=== PATIENT | female | born 1985 | race Caucasian/White ===

== ENCOUNTER → 2019-05-15 10:10 | Outpatient (BNVA) | payer BC, SELFPAY | PROVIDERS: Visit Provider Obstetrics & Gynecology | DX: Z09 Encounter for follow-up examination after completed treatment for conditions other than malignant neoplasm (principal); N93.9 Abnormal uterine and vaginal bleeding, unspecified | CPT/HCPCS: 36415; 83001; 84146; 84443 ==

== ENCOUNTER → 2019-12-28 09:46 | Outpatient (BNVA) | payer BC, SELFPAY | PROVIDERS: Visit Provider Obstetrics & Gynecology | DX: N93.9 Abnormal uterine and vaginal bleeding, unspecified (principal) | CPT/HCPCS: 83036 ==

== ENCOUNTER 2020-01-18 20:39 | Emergency (ER) | payer BC, SELFPAY ==
[2020-01-18 21:42] VITALS: BP 152/91; PULSE 79; RESP 14; TEMP 36.5; O2SAT 98; BMI 35.9
[2020-01-18 21:55] LABS: Glucose Point of Care 146 mg/dL (70-110)
[2020-01-19 00:42] VITALS: BP 167/91; PULSE 94; RESP 18; O2SAT 98
[2020-01-19 01:00] VITALS: BP 126/63; PULSE 88; RESP 16; O2SAT 98
--- NOTE | 2020-01-19 01:02 | W.ED.SKABFB ---
HPI - Skin/Abscess/Foreign Bdy General: Chief complaint: Skin/Abscess/Foreign Body Stated complaint: rash Time Seen by Provider: 01/19/20 00:46 Source: patient Mode of arrival: ambulatory Limitations: no limitations History of Present Illness: HPI narrative: Patient comes in for generalized itchy rash. Patient has been treated with steroid 1 week ago and then was treated with permethrin 3 to 4 days ago. Patient reports that she continues to have itchiness after these treatments and cannot find any improvement from symptoms. Patient appears well. Patient appears no acute distress. Review of Systems General: Reports: 10 or more systems reviewed and unremarkable except in HPI and below Skin/Breast: Reports: other (Itchy rash) PFS ED PFSH: Family History Grandfather Hyperlipidemia maternal Hypertension maternal Stroke maternal Grandmother Heart disease maternal Hyperlipidemia maternal Hypertension maternal Thyroid condition maternal Father Thyroid condition Social History (Updated 12/28/19 @ 09:13 by Joanna Bal RN) Smoking and tobacco status: never smoked Alcohol intake: former Year of sobriety/quit date alcohol: 2020 Physical Exam Const: COMMON NORMALS: no acute distress and patient oriented x3 GENERAL APPEARANCE: cooperative HENMT: COMMON NORMALS: normocephalic, TM's normal bilaterally and Normal external nose present HEAD & SCALP: normal to inspection and normocephalic NOSE: Normal external nose present TYMPANIC MEMBRANE: TM's normal bilaterally MOUTH: Normal oral and palatal mucosa present THROAT: posterior oropharynx normal Eye: GENERAL EYE: appearance normal, both eyes and all related structures Neck/C-Spine: COMMON NORMALS: full ROM Lymph: LYMPHATIC: no lymphadenopathy noted Chest: COMMONS NORMALS: normal inspection of the chest Resp: COMMON NORMALS: normal respiratory effort EFFORT & INSPECTION: Yes able to speak in complete sentences Cardio: COMMON NORMALS: regular rate and regular rhythm RATE: regular rate RHYTHM: regular rhythm GI: COMMON NORMALS: non-tender : COMMON NORMALS: Yes no CVA tenderness BLADDER/KIDNEY EXAM: Yes no CVA tenderness Back/Pelvis: COMMON NORMALS: no CVA tenderness and thoracic and lumbar spine normal to inspection Extremity: COMMON NORMALS: normal to inspection Neuro: COMMON NORMALS: patient oriented x3 and moves all extremities Psych: COMMON NORMALS: mental status grossly normal and cooperative Skin: NARRATIVE SKIN EXAM: No significant rash, areas of abrasions were patient has been scratching. Course Vital Signs: Vital signs: Vital Signs Temperature 98.1 F 01/19/20 01:19 Pulse Rate 88 01/19/20 01:19 Respiratory Rate 16 01/19/20 01:19 Blood Pressure 124/81 01/19/20 01:19 Pulse Oximetry 99 01/19/20 01:19 MDM - Skin/Abscess/Foreign Bdy MDM Narrative: Medical decision making narrative: Patient comes in for itching and rash. On exam we no areas of abrasions where patient has been scratching. Patient appears well. Patient appears in no acute distress. Abdomen soft nontender. Differential diagnosis includes but not limited to scabies, neurodermatitis, eczema. Suspect patient probably has eczema and is scratching. I will cover with Stromectol for scabies although that is most likely more due to the eczema. Patient was given triamcinolone and hydroxyzine to help with itching. Patient reported understanding of care plan and need for follow-up. Lab Data: Labs: Lab Results 01/18/20 Range/Units 21:50 POC Glucose 146 (70-110) mg/dL Discharge Plan Discharge Patient Disposition: Home Clinical Impression: Generalized pruritus, Eczema Condition: Stable Prescriptions: New Stromectol 3 mg tablet 15,000 mcg PO DAILY Qty: 10 RF: 0 hydroxyzine HCl 25 mg tablet 25 mg PO Q6H PRN (Reason: itching) Qty: 14 RF: 0 triamcinolone acetonide 0.1 % cream 1 applic TOPICAL BID Qty: 80 RF: 0 No Action norgestimate-ethinyl estradiol [Sprintec (28)] 0.25-35 mg-mcg tablet 1 tab PO DAILY Qty: 84 RF: 3 ibuprofen 600 mg tablet 600 mg PO TID RF: 0 metformin 500 mg tablet 500 mg PO BID RF: 0 mecobalamin (vitamin B12) PO DAILY RF: 0 diphenhydramine HCl 25 mg capsule 25 mg PO Q6H PRNRF: 0 Discharge Orders: Discharge Order (Routine); Ordered 01/19/20 Ordered By: Maximus Hurtado Referrals: Vinicius Avila NP [Primary Care Provider] - Discharge Diet: Usual diet Discharge Activity: Increase activity as tolerated Patient Instructions: Itchy Skin (ED) Activity Restrictions/Additional Instructions: Use medications as directed. Drink plenty of fluids. Follow-up with primary care for further treatment. Return to the emergency department for new concerns. 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
[2020-01-19] MEDS: hyDROXYzine 25 mg Capsule 50 MG PO (01:09)
[2020-01-19 01:19] VITALS: BP 124/81; PULSE 88; RESP 16; TEMP 36.7; O2SAT 99
== END 2020-01-19 01:19 | disposition home or self-care (01) ==
PROVIDERS: Emergency Provider Nurse Practitioner Family; PCP Nurse Practitioner Family
DX: L29.8 Other pruritus (principal); L30.9 Dermatitis, unspecified
CPT/HCPCS: 12345; 36416; 82962; 99281; 99283

== ENCOUNTER 2020-03-21 19:21 | Emergency (ER) | payer BC, SELFPAY ==
[2020-03-21 19:50] VITALS: BP 154/94; PULSE 80; RESP 18; TEMP 36.8; O2SAT 99; BMI 34.7
[2020-03-21] MEDS: metoclopramide 5 mg/mL SDV 2 mL 10 MG IVP (21:16)
[2020-03-21] MEDS: diphenhydrAMINE 50 mg/mL SDV 1mL IVP (21:16)
[2020-03-21] MEDS: ketorolac 30 mg/mL INJ IVP (21:16)
--- NOTE | 2020-03-21 21:29 | ED_ITS ---
HPI - Headache General: Chief Complaint: Headache Stated Complaint: H/A, NECK PAIN X 2 DAYS Time Seen by Provider: 03/21/20 21:02 Source: patient Mode of arrival: ambulatory Limitations: no limitations History of Present Illness: HPI Narrative: 84-year-old female who has a history of migraines. States she started having a headache last night that began gradually. States it is worsened today and she does have photophobia along with phonophobia. States she has some slight neck pain to mainly on the left side especially with palpation. She denies any injuries. She denies any fever. She denies this being the worst headache of her life. States her headache currently is a 5 out of 10. MD elicited complaint: headache and migraine Associated symptoms: Deny chest pain, fever(s), nausea, rash or vomiting Review of Systems Const: Denies: fever(s), chills, body aches or change in appetite Eyes: Denies: blurry vision or eye discomfort ENMT: Denies: throat pain or dental pain Card: Denies: chest pain Resp: Denies: dyspnea GI: Denies: abdominal pain, nausea, vomiting or diarrhea : Denies: dysuria Musc: Denies: neck pain or back pain Skin/Breast: Denies: rash Neuro: Reports: headache(s) Psych: Denies: depression [place]/Lymph: Denies: easy bruising All/Imm: Denies: urticaria PFSH ED PFSH: Family History Grandfather Hyperlipidemia maternal Hypertension maternal Stroke maternal Grandmother Heart disease maternal Hyperlipidemia maternal Hypertension maternal Thyroid condition maternal Father Thyroid condition Social History (Updated 12/28/19 @ 09:13 by Joanna Bal RN) Smoking and tobacco status: never smoked Alcohol intake: former Year of sobriety/quit date alcohol: 2019 Physical Exam Const: COMMON NORMALS: no acute distress, patient oriented x3 and healthy appearing HENMT: COMMON NORMALS: normocephalic and atraumatic HEAD & SCALP: normocephalic and atraumatic Eye: COMMON NORMALS: Equal, round and reactive pupils present and EOMs intact bilaterally PUPIL: Yes Equal, round and reactive pupils present Neck/C-Spine: COMMON NORMALS: full ROM, supple and no meningeal signs Chest: COMMONS NORMALS: normal inspection of the chest and normal palpation of entire chest wall Resp: COMMON NORMALS: normal respiratory effort, No retractions, No use of accessory muscles and clear to auscultation bilaterally AUSCULTATION: clear to auscultation bilaterally Cardio: COMMON NORMALS: regular rate, regular rhythm and No murmurs present (Cardio) RATE: regular rate RHYTHM: regular rhythm GI: COMMON NORMALS: Normal to inspection, nondistended, normoactive bowel sounds present, Soft to palpation, non-tender and no masses PALPATION: Yes Soft to palpation Extremity: COMMON NORMALS: normal to inspection and full ROM Neuro: COMMON NORMALS: patient oriented x3, moves all extremities and no focal motor deficits MENINGEAL SIGNS: Yes no meningeal signs Psych: COMMON NORMALS: mental status grossly normal, Normal thought process present and cooperative THOUGHT PROCESS: Normal thought process present Skin: COMMON NORMALS: no rashes or lesions noted and no wounds GENERAL SKIN EXAM: no rashes or lesions noted Course Vital Signs: Vital signs: Vital Signs Temperature 98.3 F 03/21/20 19:50 Pulse Rate 80 03/21/20 19:50 Respiratory Rate 18 03/21/20 19:50 Blood Pressure 154/94 03/21/20 19:50 Pulse Oximetry 99 03/21/20 19:50 MDM - Headache MDM Narrative: Medical decision making narrative: Raquel presents here with a headache that is likely a migraine headache. Patient is well-appearing here states her headache is resolved. She has no signs of meningitis or subarachnoid hemorrhage. She is to follow-up with PCP in 2 to 4 days. Informed her if her headache returns she is to return immediately. She understands and agrees to this plan. Discharge Plan Discharge Patient Disposition: Home Clinical Impression: Headache Qualifiers: Headache type: unspecified Headache chronicity pattern: acute headache Intractability: not intractable Qualified Code(s): R51.9 - Headache, unspecified Condition: Stable Prescriptions: No Action norgestimate-ethinyl estradiol [Sprintec (28)] 0.25-35 mg-mcg tablet 1 tab PO DAILY Qty: 84 RF: 3 ibuprofen 600 mg tablet 600 mg PO TID PRN (Reason: Abnormal uterine bleeding) RF: 0 metformin 500 mg tablet 500 mg PO BID RF: 0 ferrous sulfate 325 mg (65 mg iron) Tablet 325 mg PO DAILY RF: 0 Discharge Orders: Discharge Order (Routine); Ordered 11/13/20 Ordered By: Miguel Hernandez Referrals: Vinicius Avila NP [Primary Care Provider] - Discharge Diet: Advance as tolerated Discharge Activity: Resume usual activity Patient Instructions: Migraine Headache (ED), Acute Headache (ED) Coding Level of Care Code 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
[2020-03-21 21:54] VITALS: BP 134/66; PULSE 84; RESP 16; O2SAT 99
== END 2020-03-21 21:55 | disposition home or self-care (01) ==
PROVIDERS: Emergency Provider Emergency Medicine; PCP Nurse Practitioner Family
DX: R51.9 Headache, unspecified (principal)
CPT/HCPCS: 12345; 96374; 96375; 99282; 99283; J1200; J1885; J2765

== ENCOUNTER 2020-04-15 09:29 | Outpatient (CLI) | payer BC, SELFPAY ==
[2020-04-15 10:41] LABS: Basophils # 0.1 10^3/uL (0.0-0.1); Basophils % 0.7 %; Eosinophils # 0.2 10^3/uL (0.0-0.8); Eosinophils % 3.1 %; Hematocrit 34.1 % (37.0-47.0); Hemoglobin 9.9 g/dL (11.5-15.3); Lymphocytes # 2.1 10^3/uL (0.8-4.8); Lymphocytes % 28.9 %; Mean Corpuscular Hemoglobin 20.6 pg (28.0-34.0); Mean Corpuscular Volume 70.9 fL (81-99); Mean Platelet Volume 11.1 fL (7.4-10.4); Monocytes # 0.4 10^3/uL (0.2-0.9); Monocytes % 5.3 %; Neutrophils # 4.56 10^3/uL (1.8-7.7); Neutrophils % 61.6 %; Nucleated Red Blood Cells % 0 %; Platelet Count 452 10^3/cmm (130-400); Red Blood Count 4.81 10^6/uL (4.1-5.3); Red Cell Distribution Width 16.8 % (12.1-15.1); White Blood Count 7.4 10^3/uL (4.0-10.0)
--- NOTE | 2020-04-15 17:20 | ONC CON_ITS ---
Dr. Bustos New Patient Note Patient: Raquel Leach Unit #: [id number]: 1985 Dicatated By: Keisha Bustos M.D.Date of Visit: Apr 15, 2020 Onc MED New Patient/Consult Referring Physician: Vinicius Avila N.P. History of Present Illness: Ms. Raquel Leach, is a 34-year-old female with ' lifelong' history of ,off and on anemia and heavy menstrual periods, now being evaluated and managed by Dr. Mosley, [facility] as per patient last year she did try Depo shot without much help then , eventually in April 2019 she was started on control pill and ibuprofen for pelvic pain and she also underwent endometrial biopsy last year , As per patient it showed no evidence of endometriosis but endometrial ablation was recommended early this year but due to COVID-19 pandemic it was never scheduled. As per patient she has been having heavy menstrual periods since the beginning and many times it last as long as 11 days a month. Denies any history of melena or hematochezia but chronic diarrhea for many years and also history of indigestion. Denies any history of blood transfusion. But she has taken oral iron on multiple occasion and now she is on since first week of March 2020 as her labs done on February 05, 2020 showed white blood count 8.3 hemoglobin 10.5 hematocrit 37 MCV 71 platelets 472,000 CMP within normal limit except glucose 153 and follow-up labs done on March 27, 2020 showed white blood count 7.6 hemoglobin 10.2 hematocrit 35.1 MCV 70 platelets 422 iron saturation 3%, iron 16, TIBC 507, ferritin 4. No family history of colon cancer but grandmother with multiple colon polyps and now undergoing repeated colonoscopy and colon polyp removal. Patient denies any palpitation or shortness of breath at rest but mild dyspnea on exertion, denies any jaundice denies any hemoptysis or hematemesis, denies any headaches blurred vision or double vision but sometimes leg cramps.No night sweats, no peripheral lymphadenopathy, no recurrent fever but intentional weight loss since diagnosed with diabetes Past Medical History: Ms. Torres medical history is unremarkable. Past Surgical History: Ms. Torres surgical/procedural history consists of caesarean section and tubal ligation. Medications: Benadryl Allergy 1 Capsule (of 25 mg) Oral PRN, Cetirizine HCl 1 Tablet (of 10 mg) Oral daily PRN, Ferrous Sulfate 1 Tablet (of 325 (65 fe) mg) Oral daily, Hair Skin Nails 2 Tablet Tablet, chewable Oral daily PRN, Ibuprofen 2 Capsule (of 200 mg) Oral t.i.d., metFORMIN HCl 1 Tablet (of 500 mg) Oral b.i.d., raNITIdine HCl 1 Capsule (of 150 mg) Oral PRN, Sprintec 28 1 Tablet (of 0.25-35 mg - mcg) Oral daily Allergies: No Known Allergies. Social History: Ms. Leach is . Ms. Leach has never smoked. She drinks occasionally. patient states drinks occ. Family History: Ms. Leach's mother is alive: hypertension. Ms. Leach's father is alive: alcoholism, and myocardial infarction. Review Of Symptoms: Constitutional - Appetite is good and weight is stable, patient reports 25 lb weight loss. noted to be intentional. No fever, night sweats, or hot flashes. Energy level is poor, ENMT - Posivite for sinus congestion/drainage. No mouth sores. No sore throat or difficulty swallowing, Hematologic/Lymphatic - Positive for abnormal bruising or bleeding R/T heavy and irregular menstrual periods, Respiratory - Positive shortness of breath, reports Asthma. No cough. No pleuritic pain or hemoptysis, Cardiovascular - No angina pain. No palpitations, Gastrointestinal - No nausea or vomiting. Positive for heartburn or acid reflux. Postive for diarrhea and constipation. No blood in the stool or black stools, Genitourinary (F) - No dysuria or hematuria. Positive for urinary frequency. No urgency or incontinence, Musculoskeletal - Positve for chronic back and neck pain, Neurologic - No headache or dizziness. No numbness or tingling. No other focal neurologic symptoms, Psychiatric - Positive for anxiety. No insomnia. Vital Signs: Performed on Apr 15, 2020 11:11: 6, 99 %, 89 /min, 18 /min, 152/93 mm(hg) (HIGH), 99.6 F (HIGH), and 189.8 lbs (HIGH). Performance Status: 0 - Fully active, able to carry on all predisease activities without restrictions. (ECOG) Physical Examination: ENMT - No mouth sores, no thrush, no jaundice, Respiratory - Lungs are clear to auscultation, Cardiovascular - Regular rate and rhythm of heart, Abdomen - Soft, bowel sounds present, Extremities - No visible edema. Lab/Imaging: Most recent lab results are not available for this patient. Impression: Microcytic hypochromic anemia due to severe iron deficiency probably due to heavy menstrual periods, other possibility could be GI blood loss or iron malabsorption. Anemia work-up done on March 27, 2020 showed ferritin 4, iron saturation 3%, iron 16, TIBC 507 and white blood count 7.6 hemoglobin 10.2 hematocrit 35.1 platelets 422,000 MCV 70 History of oral iron supplement on medication, recently started on oral iron supplement in first week of March 2020 Mild thrombocytosis probably due to iron deficiency Heavy menstrual periods, etiology unclear, endometrial biopsy done last year was inconclusive but endometrial ablation was not a consideration but due to COVID-19 pandemic it was not scheduled, on control pills since April 2019 with no significant improvement in her menses flow. Chronic diarrhea, indigestion Diabetes mellitus Plan: Discussed with patient regarding her labs white blood count 7.4 hemoglobin 9.9 hematocrit 34.1 platelets 452,000 MCV 70.9 with a normal differential Clinically, patient is doing reasonably well with well compensated severe iron deficiency anemia, on oral iron tolerating well but there is no improvement in her hemoglobin since she is on oral iron her hemoglobin on March 27, 2020 was 10.2 g and today's 9.9 g Patient may have iron malabsorption, as per patient with oral iron supplement her hemoglobin never gone back up to normal and could be due to severe menorrhagia and GI bleeding cannot be ruled out. Moreover patient has chronic diarrhea of unknown etiology and off-and-on indigestion which could be due to ibuprofen. Patient was advised to discontinue ibuprofen and take plain Tylenol for pain if needed in the meantime we will refer her to gastroenterology for EGD and colonoscopy to rule out GI pathology and also discontinue oral iron and consider parenteral iron for better absorption so we will consider Injectafer 750 mg IV weekly x2 and then she will return to clinic 1 month after second dose of Injectafer with CBC and iron studies. Patient was advised to continue to follow with Dr. Mosley and his recommendations regarding severe menorrhagia. Signed By: Keisha Bustos M.D. <<Signature on File>>
== END 2020-04-15 09:30 | disposition home or self-care (01) ==
LOC: ONCMED 09:32
PROVIDERS: PCP Nurse Practitioner Family; Visit Provider Internal Medicine Hematology & Oncology
DX: D50.9 Iron deficiency anemia, unspecified (principal); N92.0 Excessive and frequent menstruation with regular cycle; D47.3 Essential (hemorrhagic) thrombocythemia; K52.9 Noninfective gastroenteritis and colitis, unspecified; K30 Functional dyspepsia; E11.9 Type 2 diabetes mellitus without complications
CPT/HCPCS: 36415; 85025; 99203

== ENCOUNTER 2020-04-18 06:00 | Outpatient (CLI) | payer BC, SELFPAY ==
[2020-04-18] MEDS: sodium chloride 0.9% (100 ml) 100 ML 75 ML (10:10)
[2020-04-18] MEDS: ferric carboxy (IVPB) 750 MG in sodium chloride 0.9% (100 ml) 100 ML 460 MG IV (10:10)
[2020-04-18] MEDS: ondansetron 2 mg/ML SDV 2 mL 8 MG IV (10:30)
[2020-04-18 10:33] LABS: Ferritin 5 ng/mL (15-150); Iron 15 ug/dL (37-145); Percent Saturation 3.3 % (20-50); Total Iron Binding Capacity 446 mcg/dl; Unsaturated Iron Binding 431 ug/dL (112-347)
--- NOTE | 2020-04-21 00:09 | ONC FU_ITS ---
[facility] Patient Note Patient: Raquel Leach Unit #: [id number]: 1985 Dictated By: Nidia EpsteinDate of Visit: Apr 18, 2020 Onc MED Follow-Up/Prog Note Chief Complaint: Iron deficiency anemia History of Present Illness: Ms. Leach is a 34-year-old female with ' lifelong' history of ,off and on anemia and heavy menstrual periods. She is now being evaluated and managed by Dr. Mosley, EPIC SPECIALIST. She states in 2019, she did try Depo shot without much help. In April 2019 she was started on control pill and ibuprofen for pelvic pain. She also underwent endometrial biopsy last year. She reports it showed no evidence of endometriosis, but endometrial ablation was recommended early this year but due to COVID-19 pandemic it was never scheduled. As per patient she has been having heavy menstrual periods since the beginning and many times it last as long as 11 days a month. Denies any history of melena or hematochezia but chronic diarrhea for many years and also history of indigestion. Denies any history of blood transfusion. But she has taken oral iron on multiple occasion and now she is on since first week of March 2020 as her labs done on February 05, 2020 showed white blood count 8.3 hemoglobin 10.5 hematocrit 37 MCV 71 platelets 472,000 CMP within normal limit except glucose 153 and follow-up labs done on March 27, 2020 showed white blood count 7.6 hemoglobin 10.2 hematocrit 35.1 MCV 70 platelets 422 iron saturation 3%, iron 16, TIBC 507, ferritin 4. No family history of colon cancer but grandmother with multiple colon polyps and now undergoing repeated colonoscopy and colon polyp removal. Ms Leach was found to be severely iron deficient as noted above. She has been approved for IV iron replacement with Injectafer and is here today for her first dose. She has fatigue but states it is no worse than her last visit. She denies any new concerns. She does have intermittent leg cramps but states they are no worse than what they have been for the last several months. She denies any fever or chills. She has had no rashes. She denies any nausea or vomiting. She denies any diarrhea or constipation. She has not had correction of her iron deficiency with oral iron. She is severely iron deficient. She has anemia with her hemoglobin and the nines and tens. Her ECOG is 1. Past Medical History: Ms. Leach's medical history is unremarkable. Past Surgical History: Caesarean section Tubal ligation Allergies: No Known Allergies. Medications: Benadryl Allergy 1 Capsule (of 25 mg) Oral PRN Cetirizine HCl 1 Tablet (of 10 mg) Oral daily PRN Hair Skin Nails 2 Tablet Tablet, chewable Oral daily PRN Ibuprofen 2 Capsule (of 200 mg) Oral t.i.d. metFORMIN HCl 1 Tablet (of 500 mg) Oral b.i.d. raNITIdine HCl 1 Capsule (of 150 mg) Oral PRN Sprintec 28 1 Tablet (of 0.25-35 mg - mcg) Oral daily Family History: Ms. Leach's mother is alive: hypertension. Ms. Leach's father is alive: alcoholism, and myocardial infarction. Social History: Ms. Leach is . Ms. Leach has never smoked. She drinks occasionally. patient states drinks occ. Review Of Symptoms: Constitutional Denies fevers, chills, night sweats, excessive fatigue or weight loss. Does have fatigue but no worse than last visit. Allergic/Immunologic No reactions. Eyes Denies significant visual changes. No diplopia. No amaurosis. ENMT Denies changes in hearing, sore throat, mouth sores, difficulty or changes in swallowing ability, and/or sinus drainage. Endocrine No diabetes, thyroid disease or hormone replacement. Denies hot flashes or night sweats. Hematologic/Lymphatic Denies easy bruising or bleeding. The patient denies any tender or palpable lymph nodes. Respiratory Denies dyspnea on exertion, chest pain, cough or hemoptysis. Denies orthopnea. Cardiovascular Denies anginal chest pain, palpitations or orthopnea. Gastrointestinal Denies nausea, vomiting, diarrhea, GI bleeding, or constipation. Denies change in bowel habits and/or stool color, no heartburn or early satiety. Genitourinary (F) No hematuria, hesitancy, incontinence, vaginal bleeding, discharge or other problems with urination. Musculoskeletal Denies joint pain, swelling or redness. No decreased range of motion. Integumentary Denies chronic rashes, inflammation, ulcerations or skin changes. Neurologic Denies headache, blurred vision, and no areas of focal weakness or numbness. Normal gait. No sensory problems. Psychiatric Denies insomnia, depression, tasia or mood swings. Vital Signs: Performed on Apr 18, 2020 09:06 Height - 62.00 in Weight - 188.4 lbs (LOW) BSA - 1.86 sq.m BMI - 34.46 (HIGH) Temperature - 99.2 F (HIGH) Pulse - 98 /min Respiration - 20 /min BP - 147/79 mm(hg) (HIGH) O2 Sat - 98 % Pain - 0,1 - No physically strenuous activity, but ambulatory and able to carry out light or sedentary work (e.g. office work, light house work). (ECOG) Physical Examination: Constitutional Alert, oriented, no acute distress. Skin pink, warm and dry. Head Normocephalic; atraumatic. Eyes Conjunctivae and sclerae are clear and without icterus. Hematologic/Lymphatic No petechiae or purpura. Respiratory Lungs are clear to auscultation without rhonchi or wheezing. Cardiovascular Regular rate and rhythm of heart without murmurs,clicks, gallops or rubs. Abdomen Non-tender, non-distended, no masses or ascites. Good bowel sounds noted in all quads. No guarding or rebound tenderness. No pulsatile masses. Back/Spine Non-tender to palpation. Extremities No visible deformities, no cyanosis, clubbing or edema. Musculoskeletal No tenderness or swelling, normal range of motion without obvious weakness. Integumentary No rashes or lesions. Neurologic No sensory or motor deficits, normal cerebellar function, normal gait. Psychiatric Alert and oriented times three. Coherent speech. Verbalizes understanding of our discussions today. Laboratory:Test performed on Apr 18, 2020 10:02 Ferritin 5 ng/mL Iron 15 mcg/dL Iron Binding Capacity (TIBC) 446 mcg/dl % Iron Saturation 3.3 % UIBC 431 mcg/dL Test performed on Apr 15, 2020 10:10 WBC 7.4 10 3/uL RBC 4.81 10 6/uL HGB 9.9 g/dL HCT 34.1 % MCV 70.9 fL MCH 20.6 pg MCHC 29.0 g/dL RDW 16.8 % Platelet Count 452 10 3/cmm MPV 11.1 fL Neutrophils 4.56 10 3/uL Lymphocytes 2.1 10 3/uL Monocytes 0.4 10 3/uL Eosinophils 0.2 10 3/uL Basophils 0.1 10 3/uL Neutrophil % 61.6 % Lymphocyte % 28.9 % Monocyte % 5.3 % Eosinophil % 3.1 % Basophils % 0.7 % NRBC % 0 % Impression: Microcytic hypochromic anemia due to severe iron deficiency probably due to heavy menstrual periods, other possibility could be GI blood loss or iron malabsorption. Anemia work-up done on March 27, 2020 showed ferritin 4, iron saturation 3%, iron 16, TIBC 507 and white blood count 7.6 hemoglobin 10.2 hematocrit 35.1 platelets 422,000 MCV 70 History of oral iron supplement on medication, recently started on oral iron supplement in first week of March 2020 Mild thrombocytosis probably due to iron deficiency Heavy menstrual periods, etiology unclear, endometrial biopsy done last year was inconclusive but endometrial ablation was not a consideration but due to COVID-19 pandemic it was not scheduled, on control pills since April 2019 with no significant improvement in her menses flow. Chronic diarrhea, indigestion Diabetes mellitus Severe iron deficiency anemia and poor tolerance to oral iron replacement. Her iron was found to be very low and Dr Bustos recommended IV replacement with 2 doses of Injectafer. Per Dr Bustos's last office note: Patient may have iron malabsorption, as per patient with oral iron supplement her hemoglobin never gone back up to normal and could be due to severe menorrhagia and GI bleeding cannot be ruled out. Moreover patient has chronic diarrhea of unknown etiology and off-and-on indigestion which could be due to ibuprofen. Patient was advised to discontinue ibuprofen and take plain Tylenol for pain if needed in the meantime we will refer her to gastroenterology for EGD and colonoscopy to rule out GI pathology . Plan: 1. Iron deficiency anemia: A. Begin first dose of Injectafer 750 mg today. B. Antiemetics as needed. C. Her iron saturation today is 3.3%. Ferritin is 5 iron is 15. Her hemoglobin on 04/15/2020 was 9.9. D. We discussed potential side effects of Injectafer including allergic reaction, rash, nausea, diarrhea/constipation, amongst others. She was given a copy of the drug information per up-to-date resource. It does list all of the side effects noted in clinical trials. She has no questions at this time. E. Proceed with referral to Dr Sheldon for EGD per Dr Bustos's request-see referral request. 2. Follow-up plan: we will see her back 1 month after the second dose of Injectafer which time she will have CBC CMP and iron studies. 3. Ms. Leach was instructed to contact us in interim if questions or problems arise. Signed By: Nidia Epstein-, AOVIKTORIA Bustos MD <<Signature on File>>
[2020-04-25] MEDS: sodium chloride 0.9% (100 ml) 100 ML (09:25)
[2020-04-25] MEDS: ondansetron 2 mg/ML SDV 2 mL 8 MG IVP (09:25)
[2020-04-25] MEDS: ferric carboxy (IVPB) 750 MG in sodium chloride 0.9% (100 ml) 100 ML 460 MG IV (09:30)
== END 2020-04-18 23:59 | disposition home or self-care (01) ==
LOC: ONCMED 04-29 05:37
PROVIDERS: PCP Nurse Practitioner Family; Visit Provider Nurse Practitioner
DX: D50.9 Iron deficiency anemia, unspecified (principal); N92.0 Excessive and frequent menstruation with regular cycle; D47.3 Essential (hemorrhagic) thrombocythemia; Z79.3 Long term (current) use of hormonal contraceptives; K52.9 Noninfective gastroenteritis and colitis, unspecified; E11.9 Type 2 diabetes mellitus without complications; K30 Functional dyspepsia; Z79.1 Long term (current) use of non-steroidal anti-inflammatories (NSAID)
CPT/HCPCS: 82728; 83540; 83550; 96365; 96375; 99214; J1439; J2405

== ENCOUNTER → 2020-05-09 13:01 | Outpatient (BNVA) | payer OTHER, SELFPAY | PROVIDERS: PCP Nurse Practitioner Family; Visit Provider Surgery | DX: Z01.812 Encounter for preprocedural laboratory examination (principal); Z20.828 Contact with and (suspected) exposure to other viral communicable diseases | CPT/HCPCS: 87635 ==

== ENCOUNTER 2020-05-14 08:11 | Day surgery (SDC) | payer OTHER, SELFPAY ==
[2020-05-12 12:47] VITALS: BMI 34.4
[2020-05-14 08:37] LABS: OR HCG Qualitative Urine Negative (Negative)
[2020-05-14] MEDS: sodium chloride 0.9% 1,000 ML 30 ML IV (08:58)
[2020-05-14 08:59] VITALS: BP 134/88; PULSE 89; RESP 20; TEMP 37; O2SAT 98
[2020-05-14 09:02] LABS: Glucose Point of Care 118 mg/dL (70-110)
--- NOTE | 2020-05-14 09:09 | W.PM.OPSUD ---
Surgery/Procedure H&P Update DATE OF PROCEDURE: May 14, 2020 DATE H&P PERFORMED: 04/24/20 H&P UPDATE INFORMATION: I have reviewed H&P completed within last 30 days, I have examined patient prior to procedure and No changes to prior documentation PREOP DIAGNOSIS: Anemia and change in bowel habits PRIMARY INDICATION FOR PROCEDURE: The same PLANNED PROCEDURE: Operation Date: 05/14/20 09:00 Proposed Procedures p EGD/Colon 03327 D64.9(Not Applicable) - Henrique Sheldon MD s Colonoscopy 17960 R19.4(Not Applicable) - Henrique Sheldon MD
--- NOTE | 2020-05-14 09:13 | ANES.PREANE2 ---
Pre-Anesthetic Assessment Pre-Anesthetic Assessment: Height/Weight: Height 1.57 m Weight 85.275 kg Temp Pulse Resp BP Pulse Ox 98.6 F 89 20 H 134/88 98 05/14/20 08:59 05/14/20 08:59 05/14/20 08:59 05/14/20 08:59 05/14/20 08:59 Preop Diagnosis: Anemia and change in bowel habits Proposed Procedure: Operation Date: 05/14/20 09:00 Proposed Procedures p EGD/Colon 22828 D64.9(Not Applicable) - Henrique Sheldon MD s Colonoscopy 82210 R19.4(Not Applicable) - Henrique Sheldon MD Familial anesthetic complications: None Was Beta Keven taken within 24 hours: N/A Last intake: Intake Last Liquid Date 05/13/20 Last Liquid Time 22:00 Last Solid Date 05/12/20 Last Solid Time 21:00 Social: Social History: No alcohol and No tobacco Comment: former ETOH Exam: Pre-Anes Outpt Exam: alert, oriented x 3, clear to auscultation bilaterally and regular rate & rhythm Airway: Cervical ROM: WNL MP: 4 Dentition: Full Additional comments: small mouth opening, large neck circumference Pulmonary: Pulmonary: Asthma CV/HEM: CV/HEM: Anemia Metabolic: Metabolic: DM Anesthetic Plan: ASA status: 2 Anesthesia: MAC Risk of > 500 ml blood loss (7ml/kg in children): No Meds/Allergies Current Medications: Current Medications Generic Name Dose Route Start Last Admin Trade Name Freq PRN Reason Stop Dose Admin Sodium Chloride 1,000 mls @ 30 ml s/hr 05/14/20 08:30 05/14/20 08:58 Sodium Chloride 0.9% IV 05/15/20 08:29 30 mls/hr .Q24H ALISHA Administration PFSH Anesthesia PFSH: Family History Grandfather Hyperlipidemia maternal Hypertension maternal Stroke maternal Grandmother Heart disease maternal Hyperlipidemia maternal Hypertension maternal Thyroid condition maternal Father Thyroid condition Denies family history of Anesthesia complication Bleeding disorder Social History Smoking and tobacco status: never smoked Alcohol intake: former Year of sobriety/quit date alcohol: 2020 Data Anesthesia Other Labs: Laboratory Results - last 48 hr 05/14/20 05/14/20 08:26 08:56 POC Glucose 118 H Urine HCG, Qual Negative Cardiac Studies: No Data to Display
--- NOTE | 2020-05-14 10:13 | ANE.PACU2 ---
Inpatient post-anesthesia follow up: Airway intact: Yes Vital signs: Temperature 98.6 F Pulse Rate 89 Respiratory Rate 20 Blood Pressure 134/88 Pulse Oximetry 98 Oxygen Delivery Me thod Room Air Oxygen Flow Rate Fraction of Inspir ed Oxygen Hydration adequate: Yes Nausea and vomiting: No Pain level: 1 Mental status: Baseline
[2020-05-14 10:15] VITALS: BP 118/83; PULSE 82; RESP 16; TEMP 36.6; O2SAT 97
[2020-05-14 10:31] VITALS: BP 127/82; PULSE 69; RESP 18; O2SAT 97
[2020-05-15 09:01] LABS: H. Pylori / CLO Test Negative
== END 2020-05-14 10:40 | disposition home or self-care (01) ==
PROVIDERS: Anesthesiology; PCP Nurse Practitioner Family; Visit Provider Surgery
PROC: 0DJ08ZZ Inspection of Upper Intestinal Tract, Via Natural or Artificial Opening Endoscopic (ICD-10-PCS; CPT 43235; principal; 2020-05-14 09:00)
PROC: 0DJD8ZZ Inspection of Lower Intestinal Tract, Via Natural or Artificial Opening Endoscopic (ICD-10-PCS; CPT 45378; 2020-05-14 09:00)
DX: R19.4 Change in bowel habit (principal); D64.9 Anemia, unspecified; K21.9 Gastro-esophageal reflux disease without esophagitis; K29.70 Gastritis, unspecified, without bleeding; J45.909 Unspecified asthma, uncomplicated; E11.9 Type 2 diabetes mellitus without complications; Z79.84 Long term (current) use of oral hypoglycemic drugs
CPT/HCPCS: 12345; 36416; 43239; 45378; 81025; 82962; 84703; 87077; J2704; J7030

== ENCOUNTER 2020-05-21 11:41 | Outpatient (CLI) | payer OTHER, SELFPAY ==
--- NOTE | 2020-05-21 11:45 | US_ITS ---
WS: [id number] ULTRASOUND ABDOMEN LIMITED CLINICAL INFORMATION: R19.4 - Change in bowel habit COMPARISON: None. FINDINGS: Liver Size: Normal. Craniocaudal length: 15.6 cm. Echogenicity: Normal. Surface nodularity: None. Mass (size and location): None. Bile ducts Intrahepatic ducts: Normal. Common bile duct diameter: 0.3 cm. Gallbladder Normal. Gallstones: None. Gallbladder sludge: None. Gallbladder wall thickening: None. Pericholecystic fluid: None. Sonographic Waddell sign: Absent. Pancreas Normal as visualized. Right kidney: Normal. Hydronephrosis: None. Size: 13.0 cm x 7.1 cm x 4.8 cm. Abdominal aorta and IVC Visualized portions are normal. Ascites: None. US/US gall bladder 16244 IMPRESSION: Normal abdominal ultrasound
== END 2020-05-21 11:42 | disposition home or self-care (01) ==
LOC: RAD 11:47
PROVIDERS: PCP Nurse Practitioner Family; Visit Provider Surgery
DX: R19.4 Change in bowel habit (principal)
CPT/HCPCS: 76705

== ENCOUNTER 2020-06-05 08:25 | Outpatient (CLI) | payer OTHER, SELFPAY ==
[2020-06-05 09:01] LABS: Basophils # 0.1 10^3/uL (0.0-0.1); Basophils % 0.7 %; Eosinophils # 0.3 10^3/uL (0.0-0.8); Eosinophils % 3.6 %; Hematocrit 39.1 % (37.0-47.0); Hemoglobin 12.4 g/dL (11.5-15.3); Lymphocytes # 1.8 10^3/uL (0.8-4.8); Lymphocytes % 26.1 %; Mean Corpuscular HGB Conc 31.7 g/dL (30.0-36.0); Mean Corpuscular Hemoglobin 26.5 pg (28.0-34.0); Mean Corpuscular Volume 83.5 fL (81-99); Mean Platelet Volume 10.5 fL (7.4-10.4); Monocytes # 0.3 10^3/uL (0.2-0.9); Monocytes % 4.6 %; Neutrophils # 4.44 10^3/uL (1.8-7.7); Neutrophils % 64.6 %; Nucleated Red Blood Cells % 0 %; Platelet Count 292 10^3/cmm (130-400); Red Blood Count 4.68 10^6/uL (4.1-5.3); Red Cell Distribution Width 22.1 % (12.1-15.1); White Blood Count 6.9 10^3/uL (4.0-10.0)
[2020-06-05 09:39] LABS: Ferritin 248 ng/mL (15-150); Iron 68 ug/dL (37-145); Percent Saturation 23.4 % (20-50); Total Iron Binding Capacity 290 mcg/dl; Unsaturated Iron Binding 222 ug/dL (112-347)
--- NOTE | 2020-06-05 14:31 | ONC FU_ITS ---
Dr. Bustos follow up note Patient: Raquel Leach Unit #: [id number]: 1985 Dicatated By: Keisha Bustos M.D.Date of Visit:Jun 05, 2020 Onc Med Follow-up/Prog Note History of Present Illness: Ms. Raquel Leach, is a 34-year-old female with ' lifelong' history of ,off and on anemia and heavy menstrual periods, now being evaluated and managed by Dr. Mosley, EQUIPMENT CLEANER as per patient last year she did try Depo shot without much help then , eventually in April 2019 she was started on control pill and ibuprofen for pelvic pain and she also underwent endometrial biopsy last year , As per patient it showed no evidence of endometriosis but endometrial ablation was recommended early this year but due to COVID-19 pandemic it was never scheduled. As per patient she has been having heavy menstrual periods since the beginning and many times it last as long as 11 days a month. Denies any history of melena or hematochezia but chronic diarrhea for many years and also history of indigestion. Denies any history of blood transfusion. But she has taken oral iron on multiple occasion and now she is on since first week of March 2020 as her labs done on February 05, 2020 showed white blood count 8.3 hemoglobin 10.5 hematocrit 37 MCV 71 platelets 472,000 CMP within normal limit except glucose 153 and follow-up labs done on March 27, 2020 showed white blood count 7.6 hemoglobin 10.2 hematocrit 35.1 MCV 70 platelets 422 iron saturation 3%, iron 16, TIBC 507, ferritin 4. No family history of colon cancer but grandmother with multiple colon polyps and now undergoing repeated colonoscopy and colon polyp removal. Ms Leach was found to be severely iron deficient as noted above.Treated with parenteral iron Injectafer 750 mg IV on April 18 and April 25, 2020 with excellent response E.g. normalization of iron deficiency anemia Underwent colonoscopy and EGD on May 14, 2019 showed no abnormality Came for follow-up, denies any specific complaints, more energetic since parenteral iron infusion. Still having heavy menstrual periods , She has seen Dr. Mosley and hysterectomy is scheduled for July 09, 2020. And also underwent colonoscopy EGD recently which showed no obvious sign of GI bleeding or any other abnormality. Denies any fever chills, denies any nausea or vomiting denies any diarrhea or constipation denies any melena or hematochezia denies any hemoptysis or hematemesis denies any jaundice denies any abdominal pain. No shortness of breath or palpitation. Medications: Benadryl Allergy 1 Capsule (of 25 mg) Oral PRN, Cetirizine HCl 1 Tablet (of 10 mg) Oral daily PRN, Hair Skin Nails 2 Tablet Tablet, chewable Oral daily PRN, Ibuprofen 2 Capsule (of 200 mg) Oral t.i.d., metFORMIN HCl 1 Tablet (of 500 mg) Oral b.i.d., Pantoprazole Sodium 1 Tablet (of 40 mg) Tablet, enteric coated Oral daily, Sprintec 28 1 Tablet (of 0.25-35 mg - mcg) Oral daily Allergies: No Known Allergies. Review of Systems: Constitutional - Appetite is good and weight is stable, patient reports 25 lb weight loss. noted to be intentional. No fever, night sweats, or hot flashes. Energy level is poor, ENMT - Posivite for sinus congestion/drainage. No mouth sores. No sore throat or difficulty swallowing, Hematologic/Lymphatic - Positive for abnormal bruising or bleeding R/T heavy and irregular menstrual periods, Respiratory - Positive shortness of breath, reports Asthma. No cough. No pleuritic pain or hemoptysis, Cardiovascular - No angina pain. No palpitations, Gastrointestinal - No nausea or vomiting. Positive for heartburn or acid reflux. Postive for diarrhea and constipation. No blood in the stool or black stools, Genitourinary (F) - No dysuria or hematuria. Positive for urinary frequency. No urgency or incontinence, Musculoskeletal - Positve for chronic back and neck pain, Neurologic - No headache or dizziness. No numbness or tingling. No other focal neurologic symptoms, Psychiatric - Positive for anxiety. No insomnia. Vital Signs: Performed on Jun 05, 2020 10:33 Height - 62.00 in Weight - 193.8 lbs (HIGH) BSA - 1.89 sq.m BMI - 35.45 (HIGH) Temperature - 97.3 F (LOW) Pulse - 94 /min Respiration - 18 /min BP - 148/81 mm(hg) (HIGH) O2 Sat - 95 % (LOW) Pain - 0 Performance Status: 0 - Fully active, able to carry on all predisease activities without restrictions. (ECOG) Physical Examination: ENMT - No mouth sores, no thrush, no jaundice, Respiratory - Lungs are clear to auscultation, Cardiovascular - Regular rate and rhythm of heart, Abdomen - Soft, bowel sounds present, Extremities - No visible edema. Lab/Imaging: Test performed on Apr 18, 2020 10:02 Ferritin 5 ng/mL Iron 15 mcg/dL Iron Binding Capacity (TIBC) 446 mcg/dl % Iron Saturation 3.3 % UIBC 431 mcg/dL Test performed on Apr 15, 2020 10:10 WBC 7.4 10 3/uL RBC 4.81 10 6/uL HGB 9.9 g/dL HCT 34.1 % MCV 70.9 fL MCH 20.6 pg MCHC 29.0 g/dL RDW 16.8 % Platelet Count 452 10 3/cmm MPV 11.1 fL Neutrophils 4.56 10 3/uL Lymphocytes 2.1 10 3/uL Monocytes 0.4 10 3/uL Eosinophils 0.2 10 3/uL Basophils 0.1 10 3/uL Neutrophil % 61.6 % Lymphocyte % 28.9 % Monocyte % 5.3 % Eosinophil % 3.1 % Basophils % 0.7 % NRBC % 0 % Impression: Microcytic hypochromic anemia due to severe iron deficiency probably due to heavy menstrual periods, other possibility could be GI blood loss or iron malabsorption. Anemia work-up done on March 27, 2020 showed ferritin 4, iron saturation 3%, iron 16, TIBC 507 and white blood count 7.6 hemoglobin 10.2 hematocrit 35.1 platelets 422,000 MCV 70 History of oral iron supplement on medication, recently started on oral iron supplement in first week of March 2020 Mild thrombocytosis probably due to iron deficiency Heavy menstrual periods, etiology unclear, endometrial biopsy done last year was inconclusive but endometrial ablation was not a consideration but due to COVID-19 pandemic it was not scheduled, on control pills since April 2019 with no significant improvement in her menses flow. Chronic diarrhea, indigestion Diabetes mellitus Severe iron deficiency anemia and poor tolerance to oral iron replacement. Her iron was found to be very low and was recommended IV replacement with 2 doses of Injectafer. As there was no improvement on oral iron supplement so There was a concern she may have iron malabsorption Which was given on April 18, 2020 and April 25, 2020 with excellent response e.g. normalization of iron deficiency anemia and iron stores Colonoscopy/EGD done on May 14, 2019 showed no abnormality Plan: Discussed with patient regarding her labs white blood count 6.9 hemoglobin 12.4 hematocrit 39.1 platelets 292,000 iron 68 compared to 15 previously iron saturation 23.4 compared to 3.3 previously and ferritin 248 compared to 5 previously, status post Injectafer 750x2 Clinically, patient doing well with no new signs symptom and affect more energetic, no shortness of breath or palpitation at rest or on exertion, follow-up CBC shows normalization of iron deficiency anemia and iron studies shows iron in normal range, at this point, will monitor, patient is scheduled for hysterectomy on July 09, 2020, and recently underwent colonoscopy and EGD which showed no abnormality no evidence of gross bleeding. Return to clinic in 2 months with CBC and iron studies Signed By: Keisha Bustos M.D. <<Signature on File>>
== END 2020-06-05 08:26 | disposition home or self-care (01) ==
LOC: ONCMED 08:27
PROVIDERS: PCP Nurse Practitioner Family; Visit Provider Internal Medicine Hematology & Oncology
DX: D50.9 Iron deficiency anemia, unspecified (principal); N92.0 Excessive and frequent menstruation with regular cycle; D47.3 Essential (hemorrhagic) thrombocythemia; K52.9 Noninfective gastroenteritis and colitis, unspecified; K30 Functional dyspepsia; E11.9 Type 2 diabetes mellitus without complications
CPT/HCPCS: 36415; 82728; 83540; 83550; 85025; G0463

== ENCOUNTER → 2020-07-04 11:19 | Outpatient (BNVA) | payer OTHER, SELFPAY | PROVIDERS: PCP Nurse Practitioner Family; Visit Provider Obstetrics & Gynecology | DX: N93.9 Abnormal uterine and vaginal bleeding, unspecified (principal) | CPT/HCPCS: 87635 ==

== ENCOUNTER 2020-07-09 10:03 | Observation (INO) | payer OTHER, SELFPAY ==
[2020-07-07 12:29] VITALS: BMI 35.6
--- NOTE | 2020-07-07 12:52 | ANES.PREANE2 ---
Pre-Anesthetic Assessment Pre-Anesthetic Assessment: Height/Weight: Height 1.57 m Weight 88.451 kg Preop Diagnosis: Abnormal uterine bleeding unresponsive to medical management Proposed Procedure: Operation Date: 07/09/20 10:25 Proposed Procedures p Laparoscopic Assist Vaginal Hystectomy 52349 N93.9(Not Applicable) - Sheng Mosley MD Familial anesthetic complications: None Social: Social History: No alcohol and No tobacco Exam: Pre-Anes Outpt Exam: alert, oriented x 3, clear to auscultation bilaterally and regular rate & rhythm Airway: Cervical ROM: WNL MP: 4 Dentition: Full Pulmonary: Pulmonary: Asthma (mild) and Cough (d/t drainage from allergies) GI: GI: GERD Metabolic: Metabolic: DM Anesthetic Plan: ASA status: 2 Anesthesia: General Risk of > 500 ml blood loss (7ml/kg in children): No PFSH Anesthesia PFSH: Family History Grandfather Hyperlipidemia maternal Hypertension maternal Stroke maternal Grandmother Heart disease maternal Hyperlipidemia maternal Hypertension maternal Thyroid condition maternal Father Thyroid condition Denies family history of Anesthesia complication Bleeding disorder Social History (Updated 07/07/20 @ 07:47 by Joanna Bal RN) Smoking and tobacco status: never smoked Alcohol intake: current Alcohol intake frequency: holidays/special occasions only Alcohol type: wine Substance/Drug Use: never Female Reproductive History: Date of last menstrual period: 06/13/20 Data Anesthesia Cardiac Studies: No Data to Display
[2020-07-07 13:13] LABS: Add Urine Microscopic? NO
[2020-07-07 13:21] LABS: Basophils % 0.5 %; Eosinophils # 0.4 10^3/uL (0.0-0.8); Eosinophils % 4.6 %; Hematocrit 40.7 % (37.0-47.0); Hemoglobin 12.9 g/dL (11.5-15.3); Lymphocytes # 2.4 10^3/uL (0.8-4.8); Lymphocytes % 30.5 %; Mean Corpuscular HGB Conc 31.7 g/dL (30.0-36.0); Mean Corpuscular Hemoglobin 27.4 pg (28.0-34.0); Mean Corpuscular Volume 86.6 fL (81-99); Monocytes # 0.5 10^3/uL (0.2-0.9); Monocytes % 6.7 %; Neutrophils % 57.1 %; Nucleated Red Blood Cells % 0 %; Platelet Count 327 10^3/cmm (130-400); Red Cell Distribution Width 16.4 % (12.1-15.1); White Blood Count 7.9 10^3/uL (4.0-10.0)
[2020-07-07 13:43] LABS: OR HCG Qualitative Urine Negative (Negative); Specific Gravity, Urine 1.015 (1.005-1.030); Sulfosalicylic Acid Urine Negative (Negative); Urine Appearance Clear (CLEAR); Urine Color Yellow (Yellow); pH Urine 8 (5-7)
[2020-07-07 13:44] LABS: Bilirubin Urine Neg (Negative); Blood Urine Neg (Negative); Glucose Urine UA Norm (Normal); Ketones Urine Negative (Negative); Leukocyte Esterase Urine Negative (Negative); Nitrate Urine Negative (Negative); Protein Urine Neg (Negative); Urobilinogen Urine Norm (Negative)
[2020-07-07 14:00] LABS: Alanine Aminotransferase 8 U/L (0-33); Albumin Level 4.1 g/dL (3.5-5.2); Alkaline Phosphatase 56 IU/L (35-105); Anion Gap 14.6 (5-19); Aspartate Amino Transferase 8 U/L (0-32); Blood Urea Nitrogen 7 mg/dL (6-20); Calcium 9.3 mg/dL (8.5-10.5); Carbon Dioxide 28 mmol/L (22-29); Chloride 99 mmol/L (98-107); Globulin 3.6 g/dL (1.3-4.6); Glomerular Filtration Rate 141.2 mL/min (90-130); Glucose 145 mg/dL (65-115); Osmolality Calculated 287 mOsm/kg (285-295); Potassium 3.6 mmol/L (3.5-5.1); Sodium 138 mmol/L (136-145); Total Bilirubin 0.2 mg/dL (0.15-1.2); Total Protein 7.7 g/dL (6.6-8.7)
[2020-07-09] VITALS (24 sets, daily range): BP systolic 134–162; BP diastolic 82–96; PULSE 84–110; RESP 15–20; TEMP 36.5–36.7; O2SAT 96–100; BMI 35.6
[2020-07-09] MEDS: sodium chloride 0.9% 500 ML IV (06:37)
[2020-07-09] MEDS: scopolamine 1.5 Patch 1 PATCH TRANSDERMA (06:38)
--- NOTE | 2020-07-09 06:54 | W.PM.OPSUD ---
Surgery/Procedure H&P Update DATE OF PROCEDURE: July 09, 2020 DATE H&P PERFORMED: 07/07/20 H&P UPDATE INFORMATION: I have reviewed H&P completed within last 30 days, I have examined patient prior to procedure and No changes to prior documentation PREOP DIAGNOSIS: Abnormal uterine bleeding unresponsive to medical management PLANNED PROCEDURE: Operation Date: 07/09/20 07:00 Proposed Procedures p Laparoscopic Assist Vaginal Hystectomy 33781 N93.9(Not Applicable) - Sheng Mosley MD
--- NOTE | 2020-07-09 06:54 | ANES.PAUD2 ---
Pre-Anesthetic Update Pre-Anesthetic Assessment: Date of Surgery/Procedure: 07/09/20 Preop Diagnosis: Abnormal uterine bleeding unresponsive to medical management Proposed Procedure: Operation Date: 07/09/20 07:00 Proposed Procedures p Laparoscopic Assist Vaginal Hystectomy 88303 N93.9(Not Applicable) - Sheng Mosley MD Any changes to Pre-Anesthetic Assessment?: No Last Intake: Intake Last Liquid Date 07/08/20 Last Liquid Time 23:20 Last Solid Date 07/08/20 Last Solid Time 19:30 Labs Last 48hrs: Laboratory Results - last 48 hr 07/07/20 07/07/20 07/07/20 12:40 12:40 12:45 WBC 7.9 RBC 4.70 Hgb 12.9 Hct 40.7 MCV 86.6 MCH 27.4 L MCHC 31.7 RDW 16.4 H Plt Count 327 MPV 11.0 H Neut % (Auto) 57.1 Lymph % (Auto) 30.5 [place] % (Auto) 6.7 Eos % (Auto) 4.6 Baso % (Auto) 0.5 Neut # (Auto) 4.50 Lymph # (Auto) 2.4 [place] # (Auto) 0.5 Eos # (Auto) 0.4 Baso # (Auto) 0.0 Nucleated RBC % (a uto) 0 Nucleated RBCs # 0.0 Sodium Potassium Chloride Carbon Dioxide Anion Gap BUN Creatinine GFR Calculation Glucose Calculated Osmolal ity Calcium Total Bilirubin AST ALT Alkaline Phosphata se Total Protein Albumin Globulin Urine Color Yellow Urine Appearance Clear Urine pH 8 H Ur Specific Gravit y 1.015 Urine Protein Neg Urine Glucose (UA) Norm Urine Ketones Negative Urine Blood Neg Urine Nitrate Negative Urine Bilirubin Neg Prot Sulfosalicyli c Acd Negative Urine Urobilinogen Norm Ur Leukocyte Viki ase Negative Urine HCG, Qual Negative Blood Type Rho(D) Type Antibody Screen 07/07/20 07/07/20 12:45 12:45 WBC RBC Hgb Hct MCV MCH MCHC RDW Plt Count MPV Neut % (Auto) Lymph % (Auto) [place] % (Auto) Eos % (Auto) Baso % (Auto) Neut # (Auto) Lymph # (Auto) [place] # (Auto) Eos # (Auto) Baso # (Auto) Nucleated RBC % (a uto) Nucleated RBCs # Sodium 138 Potassium 3.6 Chloride 99 Carbon Dioxide 28 Anion Gap 14.6 BUN 7 Creatinine 0.5 GFR Calculation 141.2 H Glucose 145 H Calculated Osmolal ity 287 Calcium 9.3 Total Bilirubin 0.2 AST 8 ALT 8 Alkaline Phosphata se 56 Total Protein 7.7 Albumin 4.1 Globulin 3.6 Urine Color Urine Appearance Urine pH Ur Specific Gravit y Urine Protein Urine Glucose (UA) Urine Ketones Urine Blood Urine Nitrate Urine Bilirubin Prot Sulfosalicyli c Acd Urine Urobilinogen Ur Leukocyte Viki ase Urine HCG, Qual Blood Type A Positive Rho(D) Type Positive Antibody Screen Negative Vitals: Temperature 97.7 F 07/09/20 06:17 Temperature Source Temporal Artery S can 07/09/20 06:17 Pulse Rate 92 07/09/20 06:17 Respiratory Rate 16 07/09/20 06:17 Blood Pressure 162/95 07/09/20 06:17 Blood Pressure Tracy n 117 07/09/20 06:17 Pulse Oximetry 98 07/09/20 06:17 Oxygen Delivery Me thod 07/09/20 06:17 Exam: Pre-Anes Outpt Exam: alert, oriented x 3, clear to auscultation bilaterally and regular rate & rhythm Cardiac Studies: No Data to Display
[2020-07-09 06:55] LABS: OR HCG Qualitative Urine Negative (Negative)
[2020-07-09] MEDS: ceFOXitin 2,000 MG in sodium chloride 0.9% (plus) 50 ML 100 MG IV (07:00)
[2020-07-09] MEDS: sodium chloride 0.9% 1,000 ML 30 ML IV (07:40)
--- NOTE | 2020-07-09 08:20 | SUR.OPER ---
family updated of surgical status
--- NOTE | 2020-07-09 09:09 | PM.OP ---
Operative Report Date of procedure: July 09, 2020 Pre-op Diagnosis: Abnormal uterine bleeding unresponsive to medical management Post-op diagnosis: same Post-op Findings: Omental adhesions to anterior abdominal wall Procedure Done: Laparoscopic-assisted vaginal hysterectomy Lysis of adhesions Cystoscopy Specimens removed/disposition: Uterus Surgeon: Sheng Mosley MD Anesthesia: General Estimated blood loss (mL): 100 IV fluids (mL): 1,200 Urine output (mL): 300 Complications: None Findings: Normal uterus tubes and ovaries, omental adhesions to anterior abdominal wall Condition: stable Disposition: PACU Procedure: After informed consent, the patient was taken to the operating room where general anesthesia was administered. Pre-Procedure Time-Out verifying the correct patient identity, correct procedure verified with consent, correct site and side, correct patient position, availability of correct implants and any special equipment or requirements was performed and acknowledge by the OR team. She was placed in the dorsal lithotomy position and prepped and draped in sterile fashion. The patient was examined under anesthesia and found to have a normal uterus with normal adnexa. A Jaun catheter was placed in the bladder. A weighted speculum was placed in the vagina, and the anterior lip of cervix was grasped with the single toothed tenaculum. A uterine manipulator was advanced into the endocervical. Tenaculum was removed after uterine manipulator was secured. The speculum was removed from the vagina. The attention was brought to abdomen after changing gloves. The base of the umbilicus was grasped with an Allis clamp and with 2 towel clamp bilaterally tenting up the umbilicus an intraumbilical incision was made with a scalpel. While tenting up on the abdomen, a Verres needle with sleeve was admitted into the intra-abdominal cavity. A saline drop test was performed and noted to be within normal limits. Pneumoperitoneum was attained with 4 liters of carbon dioxide. The Verres needle was removed. Then a 5 mm Optiview trocar and cannula were inserted under direct visualization without complications. Trocars were removed and the laparoscope was inserted and connected to the video camera light source. A 5 mm trocar and cannula were placed in the right lower quadrant under direct visualization after infiltration of 0.5% Marcaine with epinephrine. A 5 mm trocar and cannula were placed in the left lower quadrant under direct visualization after infiltration of 0.5% Marcaine with epinephrine. The pelvic contents were visualized and noted a small uterus, deep cul-de-sac, normal bilateral fallopian tubes and ovaries, normal appendix, and both ureters were identified crossing the pelvic brim and pelvic sidewall. The left round ligament was grasped coagulated/sealed and transected using Enseal device. The left broad ligament was opened down to the level of the uterine artery and vein. The left infundibulopelvic ligament was grasped and the tuboovarian ligament was coagulated/sealed and then transected with the Enseal device. The right round ligament was grasped coagulated/sealed and then transected with the Enseal device, and the right broad ligament was opened down to the level of the right uterine artery and vein. The right infundibulopelvic ligament was grasped and the tuboovarian ligament was coagulated/sealed and then transected with the Enseal device. Peritoneum of the lower uterine segment was entered using Enseal, and the bladder was dissected off the lower uterine segment using blunt dissection. Careful inspection revealed complete hemostasis. Then changed to the vaginal posrtion of the surgery. [facility] vaginal retractor was placed to visualize the cervix. The cervix was grasped across the anterior lip with a single-toothed tenaculum and circumferentially infiltrated with 1% Xylocaine with epinephrine at this time. The cervix was circumferentially excised with the scalpel. The vaginal mucosa was dissected superiorly with sharp dissection. The anterior peritoneal reflection was identified, and it was entered with Metzenbaum scissors. A posterior colpotomy was made through the cul-de-sac space. The posterior peritoneum was identified in similar fashion and Metzenbaum scissors were used to enter the cul-de-sac. At this time, the left and right uterosacral ligaments were isolated and ligated with 0 Vicryl. The Enseal device was then used in a serial fashion up through the cardinal ligaments bilaterally. Finally, the uterine arteries were cross-clamped, cut, and ligated with the Enseal device. Enseal device was then used up through the broad ligaments superiorly and finally the uterus was rotated posteriorly. The left and right tubes were then cross-clamped and ligated with Enseal device. The uterus was excised and submitted for pathologic evaluation. The pedicles were doubly ligated bilaterally with 0 Vicryl and hemostasis noted to be achieved. No other abnormalities were noted in the pelvic cavity. Then the instruments were removed from the patient's abdominopelvic cavity. The patietn was given indigo carmine. Vaginal cuff closure and peritoneum were incorporated into one layer with 0 Vicryl suture in a continuous running interlocking fashion. Then the Juan catheter was removed and cystoscope was inserted. The bladder was filled with sterile water. Complete evaluation of the bladder mucosa was performed noting no lacerations, dimpling, tears, bleeding of the mucosa or muscular layers. Both ureteral orifices were identified. Prompt excretion of blue urine from both ureteral orifices was noted. Cystoscope was withdrawn. The Juan catheter was replaced. Excellent hemostasis was obtained. Juan catheter was then placed yielding clear izabel urine. A vaginal packing with Premarin cream was placed to provide support during the healing process. The patient tolerated the procedure well and was taken to the recovery room in a stable condition. Sponge and needle counts were correct x3.
[2020-07-09] MEDS: dextrose 5%-lactated ringers 1,000 ML 125 ML IV (11:08)
[2020-07-09] MEDS: duloxetine 30 mg Capsule PO (11:08)
[2020-07-09] MEDS: cetirizine 10 mg Tablet PO (11:09)
[2020-07-09] MEDS: HYDROcodone-acetaminophen 5-325 mg Tablet PO (14:59)
[2020-07-09] MEDS: ketorolac 30 mg/mL INJ IVP ×2 (15:00→20:54)
--- NOTE | 2020-07-09 16:00 | ANE.PACU2 ---
Inpatient post-anesthesia follow up: Airway intact: Yes Vital signs: Temperature 98.1 F Pulse Rate 93 Respiratory Rate 18 Blood Pressure 144/81 Pulse Oximetry 97 Oxygen Delivery Me thod Room Air Oxygen Flow Rate 10 Fraction of Inspir ed Oxygen Hydration adequate: Yes Nausea and vomiting: No Pain level: 4 Mental status: Baseline
--- NOTE | 2020-07-09 16:20 | PC.NURSE ---
Pt ambulated with at side in hallway x5 without difficulty. Pt back to room after walk and to chair without difficulties.
--- NOTE | 2020-07-09 17:30 | PC.NURSE ---
Pt up ambulating in hallway x10 laps.
[2020-07-10 04:00] VITALS: BP 144/81; PULSE 93; RESP 18; TEMP 36.7; O2SAT 97
[2020-07-10 05:32] LABS: Hematocrit 35.1 % (37.0-47.0); Hemoglobin 11.1 g/dL (11.5-15.3); Mean Corpuscular HGB Conc 31.6 g/dL (30.0-36.0); Mean Corpuscular Hemoglobin 27.1 pg (28.0-34.0); Mean Corpuscular Volume 85.8 fL (81-99); Mean Platelet Volume 10.4 fL (7.4-10.4); Platelet Count 286 10^3/cmm (130-400); Red Blood Count 4.09 10^6/uL (4.1-5.3); White Blood Count 8.1 10^3/uL (4.0-10.0)
--- NOTE | 2020-07-10 09:24 | PM.OBGYDC ---
Discharge Providers ALTERNATIVE FINANCING SPECIALIST Date of Admission: 07/09/20 10:03 Date of Discharge: 07/10/20 Attending Provider at Admission: Sheng Mosley MD Attending Provider at Discharge: Sheng Mosley MD Primary Care Provider: Vinicius Avila NP Reason for Visit Reason for Visit: abnormal uterine bleeding Hospital Course Hospital Course 35-year-old female with a history of abnormal uterine bleeding unresponsive to medical management. She was admitted for planned laparoscopic-assisted vaginal hysterectomy. The procedure was performed without complication. Postop observation was uneventful. Tolerating diet well. Ambulating without difficulty. Minimal discomfort with pain tolerated with medication. Physical Exam Narrative: EXAM NARRATIVE: GA: Alert and oriented ?3. HEENT: WNL. Heart: Regular rate and rhythm. Lungs: Clear to auscultation bilaterally. Abdomen: Bowel sounds present, nontender, minimal tenderness VEHICLE TECHNICIAN: No bleeding. Extremities: No edema, no cyanosis, no calves pain. Urinary Catheter Management^: Juan: Cath Placed During This Visit: yes, but has since been removed by the nurse Reason for Continuing Indwelling Catheter: Decision to DC Catheter Urinary Catheter Date of Insertion: 07/09/20 Urinary Catheter Time of Insertion: 07:34 Date Urinary Catheter Removed: 07/09/20 Time Urinary Catheter Discontinued: 21:09 Discharge Data Data Completed and Pending: Pending at discharge Category Date Time Status Pathology: Surgic al [PTH] Routine Pth 07/09/20 09:07 Received Labs from last 24 hours 07/10/20 05:14 WBC 8.1 RBC 4.09 L Hgb 11.1 L Hct 35.1 L MCV 85.8 MCH 27.1 L MCHC 31.6 RDW 16.0 H Plt Count 286 MPV 10.4 Vitals: Last Vital Signs Temp 98.1 F 07/10/20 04:00 Pulse 93 07/10/20 04:00 Resp 18 07/10/20 04:00 BP 144/81 07/10/20 04:00 Pulse Ox 97 07/10/20 04:00 Discharge Plan Discharge Patient Disposition: Home Condition: Stable Prescriptions: New hydrocodone-acetaminophen [[place]] 5-325 mg tablet 1 tab PO Q4H PRN (Reason: pain) Qty: 30 RF: 0 ibuprofen 800 mg tablet 800 mg PO TID PRN (Reason: pain) Qty: 60 RF: 0 Continued norgestimate-ethinyl estradiol [Sprintec (28)] 0.25-35 mg-mcg tablet 1 tab PO DAILY Qty: 84 RF: 3 metformin 500 mg tablet 500 mg PO BID RF: 0 cetirizine 10 mg tablet 10 mg PO DAILY PRN (Reason: Allergy Symptoms) RF: 0 diphenhydramine HCl [Allergy (diphenhydramine)] 25 mg capsule 25 mg PO TID PRN (Reason: Allergy Symptoms) RF: 0 duloxetine 30 mg capsule,delayed release(DR/EC) 30 mg PO DAILY RF: 0 pantoprazole [Protonix] 40 mg tablet,delayed release (DR/EC) 40 mg PO DAILY 30 Days Qty: 30 RF: 2 Discharge Orders: Discharge Order (Routine); Ordered 07/10/20 Ordered By: Sheng Mosley Referrals: Sheng Mosley MD [Physician] - 2 weeks Discharge Diet: Usual diet Discharge Activity: Increase activity as tolerated Patient Instructions: Laparoscopically Assisted Vaginal Hysterectomy (DC) Activity Restrictions/Additional Instructions: 1. Please call [facility] on next working day to make your post-operative appointment in 2 weeks. 2. Please stay home until you come back to the clinic on first post-operative check up. 3. Please follow instructions on your medications CAREFULLY. 4. If you have abdominal incision, do not cover it unless dressing is necessary because of drainage. OK to shower, but avoid bath. Leave steri-strips until they fall off. If they are still on one week after surgery, you may remove them. 5. If you had vaginal surgery, your doctor may instruct you to take SITZ bath. 6. Yellow, blood tinged odorous vaginal discharge is usually normal after hysterectomy or vaginal surgeries. 7. No sexual intercourse, tampons, or douches until you are completely released from the post-operative care. 8. Avoid constipation by eating right and maybe using some Metamucil or Milk of Magnesia. 9. All prescription refills are given during the working hours. Please do no wait till it runs out. Call the clinic at [phone] before your medication runs out. The clinic will get in touch with your doctor to prescribe medications if necessary. 10. Please remain within 40 mile radius from our hospital because emergencies do happen now and then during the post-operative period. 11. If you have stairs at home, take one step at a time slowly and minimize the number of trips. It helps to stay in one floor for the next few days. No lifting except what you can lift by one hand until you are released from the post-operative care. 12. Driving is discouraged until you are well healed. It may be 3-4 weeks before you feel strong enough to drive. You should be able to turn and look through the rear window without pain and you should be able to push the brake pedal very hard without pain before you drive. No fast rules, but SAFETY should be your primary concern. DO NOT drive if you are on sedating medications such as narcotics. 13. Call the clinic (during working hours) to make urgent appointment or go to the Emergency room, if any of the following occurs: i. Vaginal bleeding becomes heavy, more than a period. ii. Incision becomes red and sore, or drains pus. iii. Your temperature is over 100.4 or you have chill. iv. IV site becomes red and swollen (a little ``knot?? is usually OK) v. Persistent nausea and vomiting vi. Persistent constipation or diarrhea vii. Rash or allergic reaction to medications. Discharge Attestations ALTERNATIVE FINANCING SPECIALIST Time Spent in Discharge Care*: greater than 30 min Coding Level of Care Code Acute Home Health Registered Nurse for Tyron Smith
[2020-07-10] MEDS: docusate sodium 100 mg Capsule PO (09:28)
[2020-07-10] MEDS: ibuprofen 800 mg tablet PO (09:28)
[2020-07-10] MEDS: metformin 500 mg Tablet PO (09:29)
[2020-07-10] MEDS: pantoprazole DR 40 mg Tablet PO (09:29)
[2020-07-10] MEDS: duloxetine 30 mg Capsule PO (09:29)
[2020-07-10 09:30] VITALS: BP 135/76; PULSE 91; RESP 16; TEMP 36.5
[2020-07-10 10:20] VITALS: BP 135/76; PULSE 91; RESP 16; TEMP 36.5
== END 2020-07-10 10:20 | disposition home or self-care (01) ==
LOC: OBGYN 10:03
PROVIDERS: Anesthesiology; Admitting Provider Obstetrics & Gynecology; PCP Nurse Practitioner Family; Visit Provider Obstetrics & Gynecology
PROC: 0UT9FZZ Resection of Uterus, Via Natural or Artificial Opening With Percutaneous Endoscopic Assistance (ICD-10-PCS; CPT 58550; principal; 2020-07-09 07:00)
PROC: 0TJB8ZZ Inspection of Bladder, Via Natural or Artificial Opening Endoscopic (ICD-10-PCS; CPT 52000; 2020-07-09 07:00)
DX: N93.9 Abnormal uterine and vaginal bleeding, unspecified (principal); K66.0 Peritoneal adhesions (postprocedural) (postinfection); J45.909 Unspecified asthma, uncomplicated; K21.9 Gastro-esophageal reflux disease without esophagitis; E11.9 Type 2 diabetes mellitus without complications
CPT/HCPCS: 58550; 36415; 80053; 81003; 81025; 84703; 85025; 85027; 86850; 86900; 88307; 96365; G0378; J0131; J0694; J1100; J1885; J1940; J2405; J2704; J3010; J3490; J7030; J7040

== ENCOUNTER 2020-08-04 11:02 | Outpatient (CLI) | payer OTHER, SELFPAY ==
[2020-08-04 11:34] LABS: Basophils # 0.1 10^3/uL (0.0-0.1); Basophils % 0.7 %; Eosinophils # 0.3 10^3/uL (0.0-0.8); Eosinophils % 4.2 %; Hematocrit 41.9 % (37.0-47.0); Hemoglobin 12.9 g/dL (11.5-15.3); Lymphocytes # 2.2 10^3/uL (0.8-4.8); Lymphocytes % 28.1 %; Mean Corpuscular HGB Conc 30.8 g/dL (30.0-36.0); Mean Corpuscular Hemoglobin 27.6 pg (28.0-34.0); Mean Corpuscular Volume 89.7 fL (81-99); Mean Platelet Volume 10.8 fL (7.4-10.4); Monocytes # 0.5 10^3/uL (0.2-0.9); Monocytes % 6.4 %; Neutrophils # 4.58 10^3/uL (1.8-7.7); Neutrophils % 59.7 %; Nucleated Red Blood Cells % 0 %; Platelet Count 314 10^3/cmm (130-400); Red Blood Count 4.67 10^6/uL (4.1-5.3); Red Cell Distribution Width 13.1 % (12.1-15.1); White Blood Count 7.7 10^3/uL (4.0-10.0)
[2020-08-04 11:54] LABS: Ferritin 109 ng/mL (15-150); Iron 34 ug/dL (37-145); Percent Saturation 10.9 % (20-50); Total Iron Binding Capacity 311 mcg/dl; Unsaturated Iron Binding 277 ug/dL (112-347)
--- NOTE | 2020-08-04 13:37 | ONC FU_ITS ---
Dr. Bustos follow up note Patient: Raquel Leach Unit #: [id number]: 1985 Dicatated By: Keisha Bustos M.D.Date of Visit:Aug 04, 2020 Onc Med Follow-up/Prog Note History of Present Illness: Ms. Raquel Leach, is a 35-year-old female with ' lifelong' history of ,off and on anemia and heavy menstrual periods, now being evaluated and managed by Dr. Mosley, CORPORATE DRIVER as per patient last year she did try Depo shot without much help then , eventually in April 2019 she was started on control pill and ibuprofen for pelvic pain and she also underwent endometrial biopsy last year , As per patient it showed no evidence of endometriosis but endometrial ablation was recommended early this year but due to COVID-19 pandemic it was never scheduled. As per patient she has been having heavy menstrual periods since the beginning and many times it last as long as 11 days a month. Denies any history of melena or hematochezia but chronic diarrhea for many years and also history of indigestion. Denies any history of blood transfusion. But she has taken oral iron on multiple occasion and now she is on since first week of March 2020 as her labs done on February 05, 2020 showed white blood count 8.3 hemoglobin 10.5 hematocrit 37 MCV 71 platelets 472,000 CMP within normal limit except glucose 153 and follow-up labs done on March 27, 2020 showed white blood count 7.6 hemoglobin 10.2 hematocrit 35.1 MCV 70 platelets 422 iron saturation 3%, iron 16, TIBC 507, ferritin 4. No family history of colon cancer but grandmother with multiple colon polyps and now undergoing repeated colonoscopy and colon polyp removal. Ms Leach was found to be severely iron deficient as noted above.Treated with parenteral iron Injectafer 750 mg IV on April 18 and April 25, 2020 with excellent response E.g. normalization of iron deficiency anemia Underwent colonoscopy and EGD on May 14, 2019 showed no abnormality And underwent laparoscopic-assisted vaginal hysterectomy on July 09, 2020 for dysfunctional uterine bleeding final pathology report showed acute and chronic endometritis, no malignancy Came for follow-up denies any specific complaints, no fever chills, no nausea or vomiting, no diarrhea or constipation, no melena or hematochezia, patient recently underwent laparoscopic-assisted vaginal hysterectomy, tolerated procedure well. Medications: Benadryl Allergy 1 Capsule (of 25 mg) Oral PRN, Cetirizine HCl 1 Tablet (of 10 mg) Oral daily PRN, Hair Skin Nails 2 Tablet Tablet, chewable Oral daily PRN, Ibuprofen 2 Capsule (of 200 mg) Oral t.i.d., metFORMIN HCl 1 Tablet (of 500 mg) Oral b.i.d., Pantoprazole Sodium 1 Tablet (of 40 mg) Tablet, enteric coated Oral daily, Sprintec 28 1 Tablet (of 0.25-35 mg - mcg) Oral daily Allergies: No Known Allergies. Review of Systems: Review of Systems is not available for this patient. Vital Signs: Performed on Aug 04, 2020 13:13 Height - 62.00 in Weight - 201 lbs (HIGH) BSA - 1.92 sq.m BMI - 36.76 (HIGH) Temperature - 97.6 F (LOW) Pulse - 94 /min Respiration - 18 /min BP - 133/85 mm(hg) O2 Sat - 97 % Pain - 0 Fatigue - 4 Performance Status: 0 - Fully active, able to carry on all predisease activities without restrictions. (ECOG) Physical Examination: ENMT - Nodes, no thrush, no jaundice, Respiratory - Lungs are clear to auscultation, Cardiovascular - Regular rate and rhythm of heart, Abdomen - Soft, Bowel sounds present, Extremities - No visible edema. Lab/Imaging: Test performed on Jun 05, 2020 08:39 Ferritin 248 ng/mL Iron 68 mcg/dL Iron Binding Capacity (TIBC) 290 mcg/dl % Iron Saturation 23.4 % UIBC 222 mcg/dL WBC 6.9 10 3/uL RBC 4.68 10 6/uL HGB 12.4 g/dL HCT 39.1 % MCV 83.5 fL MCH 26.5 pg MCHC 31.7 g/dL RDW 22.1 % Platelet Count 292 10 3/cmm MPV 10.5 fL Neutrophils 4.44 10 3/uL Lymphocytes 1.8 10 3/uL Monocytes 0.3 10 3/uL Eosinophils 0.3 10 3/uL Basophils 0.1 10 3/uL Neutrophil % 64.6 % Lymphocyte % 26.1 % Monocyte % 4.6 % Eosinophil % 3.6 % Basophils % 0.7 % NRBC % 0 % Impression: Microcytic hypochromic anemia due to severe iron deficiency probably due to heavy menstrual periods, other possibility could be GI blood loss or iron malabsorption. Anemia work-up done on March 27, 2020 showed ferritin 4, iron saturation 3%, iron 16, TIBC 507 and white blood count 7.6 hemoglobin 10.2 hematocrit 35.1 platelets 422,000 MCV 70 History of oral iron supplement on medication, recently started on oral iron supplement in first week of March 2020 Mild thrombocytosis probably due to iron deficiency Heavy menstrual periods, etiology unclear, endometrial biopsy done last year was inconclusive but endometrial ablation was not a consideration but due to COVID-19 pandemic it was not scheduled, on control pills since April 2019 with no significant improvement in her menses flow.Eventually underwent laparoscopic-assisted vaginal hysterectomy on July 09, 2020 for dysfunctional uterine bleeding Chronic diarrhea, indigestion Diabetes mellitus Severe iron deficiency anemia and poor tolerance to oral iron replacement. Her iron was found to be very low and was recommended IV replacement with 2 doses of Injectafer. As there was no improvement on oral iron supplement so There was a concern she may have iron malabsorption Which was given on April 18, 2020 and April 25, 2020 with excellent response e.g. normalization of iron deficiency anemia and iron stores Colonoscopy/EGD done on May 14, 2019 showed no abnormality Plan: Discussed with patient regarding her labs white blood count 7.7 hemoglobin 12.9 g compared to 12.4 g earlier hematocrit 41.9 platelets 314,000, iron saturation 10.9% compared to 23.4% earlier ferritin 109, iron 34 Clinically, patient is doing well, recently underwent laparoscopic-assisted vaginal hysterectomy for dysfunctional uterine bleeding final pathology report showed no evidence of malignancy involving uterus., Follow-up CBC shows hemoglobin in normal range but some drop in her iron stores, will continue to monitor, hopefully her hemoglobin will stay in normal range and her iron stores will improve with iron rich diet and patient will return to clinic in 6 weeks with CBC and iron studies if there is a further drop in her iron stores or hemoglobin, may consider parenteral iron. Signed By: Keisha Bustos M.D. <<Signature on File>>
== END 2020-08-04 11:03 | disposition home or self-care (01) ==
LOC: ONCMED 11:04
PROVIDERS: PCP Nurse Practitioner Family; Visit Provider Internal Medicine Hematology & Oncology
DX: D50.9 Iron deficiency anemia, unspecified (principal); D47.3 Essential (hemorrhagic) thrombocythemia; Z87.42 Personal history of other diseases of the female genital tract; Z90.710 Acquired absence of both cervix and uterus; E11.9 Type 2 diabetes mellitus without complications; K52.9 Noninfective gastroenteritis and colitis, unspecified; K30 Functional dyspepsia
CPT/HCPCS: 82728; 83540; 83550; 85025; G0463

== ENCOUNTER 2020-09-15 10:57 | Outpatient (CLI) | payer OTHER, SELFPAY ==
[2020-09-15 11:48] LABS: Basophils # 0.1 10^3/uL (0.0-0.1); Basophils % 0.8 %; Eosinophils # 0.3 10^3/uL (0.0-0.8); Eosinophils % 3.3 %; Hematocrit 39.3 % (37.0-47.0); Hemoglobin 12.3 g/dL (11.5-15.3); Lymphocytes # 2.2 10^3/uL (0.8-4.8); Lymphocytes % 27.6 %; Mean Corpuscular HGB Conc 31.3 g/dL (30.0-36.0); Mean Corpuscular Hemoglobin 27.6 pg (28.0-34.0); Mean Corpuscular Volume 88.1 fL (81-99); Mean Platelet Volume 10.7 fL (7.4-10.4); Monocytes # 0.5 10^3/uL (0.2-0.9); Monocytes % 6.8 %; Neutrophils # 4.81 10^3/uL (1.8-7.7); Neutrophils % 60.1 %; Nucleated Red Blood Cells % 0 %; Platelet Count 324 10^3/cmm (130-400); Red Blood Count 4.46 10^6/uL (4.1-5.3)
[2020-09-15 12:14] LABS: Ferritin 117 ng/mL (15-150); Iron 32 ug/dL (37-145); Percent Saturation 11.7 % (20-50); Total Iron Binding Capacity 272 mcg/dl; Unsaturated Iron Binding 240 ug/dL (112-347)
--- NOTE | 2020-09-15 15:11 | ONC FU_ITS ---
Dr. Bustos follow up note Patient: Raquel Leach Unit #: [id number]: 1985 Dicatated By: Keisha Bustos M.D.Date of Visit:September 15, 2020 Onc Med Follow-up/Prog Note History of Present Illness: Ms. 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 As per patient she has been having heavy menstrual periods since the beginning and many times it last as long as 11 days a month. Denies any history of melena or hematochezia but chronic diarrhea for many years and also history of indigestion. Denies any history of blood transfusion. But she has taken oral iron on multiple occasion and now she is on since first week of March 2020 as her labs done on February 05, 2020 showed white blood count 8.3 hemoglobin 10.5 hematocrit 37 MCV 71 platelets 472,000 CMP within normal limit except glucose 153 and follow-up labs done on March 27, 2020 showed white blood count 7.6 hemoglobin 10.2 hematocrit 35.1 MCV 70 platelets 422 iron saturation 3%, iron 16, TIBC 507, ferritin 4. No family history of colon cancer but grandmother with multiple colon polyps and now undergoing repeated colonoscopy and colon polyp removal. Ms Leach was found to be severely iron deficient as noted above.Treated with parenteral iron Injectafer 750 mg IV on April 18 and April 25, 2020 with excellent response E.g. normalization of iron deficiency anemia Underwent colonoscopy and EGD on May 14, 2019 showed no abnormality And underwent laparoscopic-assisted vaginal hysterectomy on July 09, 2020 for dysfunctional uterine bleeding final pathology report showed acute and chronic endometritis, no malignancy Came for follow-up, denies any specific complaints, no fever chills, no nausea or vomiting, no diarrhea constipation, no melena or hematochezia, no palpitation but sometimes weakness and fatigue, patient says she uses 2-3 pillows at night to sleep and sometimes feels sleepy during daytime Medications: Benadryl Allergy 1 Capsule (of 25 mg) Oral PRN, Cetirizine HCl 1 Tablet (of 10 mg) Oral daily PRN, Hair Skin Nails 2 Tablet Tablet, chewable Oral daily PRN, Ibuprofen 2 Capsule (of 200 mg) Oral t.i.d., metFORMIN HCl 1 Tablet (of 500 mg) Oral b.i.d., Pantoprazole Sodium 1 Tablet (of 40 mg) Tablet, enteric coated Oral daily, Sprintec 28 1 Tablet (of 0.25-35 mg - mcg) Oral daily Allergies: No Known Allergies. Review of Systems: Review of Systems is not available for this patient. Vital Signs: Performed on September 15, 2020 13:21 Height - 62.00 in Weight - 200.2 lbs (LOW) BSA - 1.91 sq.m BMI - 36.62 (HIGH) Temperature - 98.2 F (LOW) Pulse - 97 /min Respiration - 18 /min BP - 147/84 mm(hg) (HIGH) O2 Sat - 100 % Pain - 0 Fatigue - 4 Performance Status: 0 - Fully active, able to carry on all predisease activities without restrictions. (ECOG) Physical Examination: ENMT - No mouth sores, no thrush, no jaundice, Respiratory - Lungs are clear to auscultation, Cardiovascular - Regular rate and rhythm of heart, Abdomen - Soft, bowel sounds present, Extremities - No visible edema. Lab/Imaging: Test performed on Jun 05, 2020 08:39 Ferritin 248 ng/mL Iron 68 mcg/dL Iron Binding Capacity (TIBC) 290 mcg/dl % Iron Saturation 23.4 % UIBC 222 mcg/dL WBC 6.9 10 3/uL RBC 4.68 10 6/uL HGB 12.4 g/dL HCT 39.1 % MCV 83.5 fL MCH 26.5 pg MCHC 31.7 g/dL RDW 22.1 % Platelet Count 292 10 3/cmm MPV 10.5 fL Neutrophils 4.44 10 3/uL Lymphocytes 1.8 10 3/uL Monocytes 0.3 10 3/uL Eosinophils 0.3 10 3/uL Basophils 0.1 10 3/uL Neutrophil % 64.6 % Lymphocyte % 26.1 % Monocyte % 4.6 % Eosinophil % 3.6 % Basophils % 0.7 % NRBC % 0 % Impression: Microcytic hypochromic anemia due to severe iron deficiency probably due to heavy menstrual periods, other possibility could be GI blood loss or iron malabsorption. Anemia work-up done on March 27, 2020 showed ferritin 4, iron saturation 3%, iron 16, TIBC 507 and white blood count 7.6 hemoglobin 10.2 hematocrit 35.1 platelets 422,000 MCV 70 History of oral iron supplement on medication, recently started on oral iron supplement in first week of March 2020 Mild thrombocytosis probably due to iron deficiency Heavy menstrual periods, etiology unclear, endometrial biopsy done last year was inconclusive but endometrial ablation was not a consideration but due to COVID-19 pandemic it was not scheduled, on control pills since April 2019 with no significant improvement in her menses flow.Eventually underwent laparoscopic-assisted vaginal hysterectomy on July 09, 2020 for dysfunctional uterine bleeding Chronic diarrhea, indigestion Diabetes mellitus Severe iron deficiency anemia and poor tolerance to oral iron replacement. Her iron was found to be very low and was recommended IV replacement with 2 doses of Injectafer. As there was no improvement on oral iron supplement so There was a concern she may have iron malabsorption Which was given on April 18, 2020 and April 25, 2020 with excellent response e.g. normalization of iron deficiency anemia and iron stores Colonoscopy/EGD done on May 14, 2019 showed no abnormality Plan: Discussed with patient regarding her labs white blood count 8 hemoglobin 12.3 hematocrit 39.3 platelets 324,000 iron saturation 11.7% ferritin 117 compared to 109 previously, iron 32 Clinically, patient doing well with no new signs symptom except persistent off-and-on generalized weakness and fatigue which could be due to other reason as her follow-up labs shows hemoglobin normal range and iron studies also within normal range but on the lower side., At this point we will continue to follow her as she return to clinic in 2 months with CBC and iron studies, if there is a further drop in her iron stores or drop in her hemoglobin, will consider parenteral iron As far as generalized weakness and fatigue and excessive snoring during daytime, is concerned could be due to sleep apnea, will suggest PMD to consider sleep study and if confirmed, may benefit from CPAP machine Signed By: Keisha Bustos M.D. <<Signature on File>>
== END 2020-09-15 10:58 | disposition home or self-care (01) ==
LOC: ONCMED 10:59
PROVIDERS: PCP Nurse Practitioner Family; Visit Provider Internal Medicine Hematology & Oncology
DX: D50.0 Iron deficiency anemia secondary to blood loss (chronic) (principal); K90.9 Intestinal malabsorption, unspecified; D47.3 Essential (hemorrhagic) thrombocythemia; N92.6 Irregular menstruation, unspecified; K52.9 Noninfective gastroenteritis and colitis, unspecified; E11.9 Type 2 diabetes mellitus without complications; Z79.899 Other long term (current) drug therapy
CPT/HCPCS: 82728; 83540; 83550; 85025; 99214

== ENCOUNTER 2020-12-04 08:56 | Outpatient (CLI) | payer OTHER, SELFPAY ==
[2020-12-04 09:33] LABS: Basophils # 0.1 10^3/uL (0.0-0.1); Basophils % 0.7 %; Eosinophils # 0.2 10^3/uL (0.0-0.8); Eosinophils % 2.4 %; Hematocrit 40.7 % (37.0-47.0); Hemoglobin 12.8 g/dL (11.5-15.3); Lymphocytes # 1.7 10^3/uL (0.8-4.8); Lymphocytes % 23.6 %; Mean Corpuscular HGB Conc 31.4 g/dL (30.0-36.0); Mean Corpuscular Hemoglobin 27.6 pg (28.0-34.0); Mean Corpuscular Volume 87.7 fL (81-99); Monocytes # 0.4 10^3/uL (0.2-0.9); Monocytes % 5.3 %; Neutrophils # 4.95 10^3/uL (1.8-7.7); Neutrophils % 67.3 %; Nucleated Red Blood Cells % 0 %; Platelet Count 303 10^3/cmm (130-400); Red Blood Count 4.64 10^6/uL (4.1-5.3); Red Cell Distribution Width 13.5 % (12.1-15.1); White Blood Count 7.4 10^3/uL (4.0-10.0)
[2020-12-04 09:47] LABS: Ferritin 136 ng/mL (15-150); Iron 49 ug/dL (37-145)
[2020-12-04 10:51] LABS: Percent Saturation 16.2 % (20-50); Total Iron Binding Capacity 301 mcg/dl; Unsaturated Iron Binding 252 ug/dL (112-347)
--- NOTE | 2020-12-04 13:55 | ONC FU_ITS ---
Dr. Bustos follow up note Patient: Raquel Leach Unit #: [id number]: 1985 Dicatated By: Keisha Bustos M.D.Date of Visit:Dec 04, 2020 Onc Med Follow-up/Prog Note History of Present Illness: Ms. 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 As per patient she has been having heavy menstrual periods since the beginning and many times it last as long as 11 days a month. Denies any history of melena or hematochezia but chronic diarrhea for many years and also history of indigestion. Denies any history of blood transfusion. But she has taken oral iron on multiple occasion and now she is on since first week of March 2020 as her labs done on February 05, 2020 showed white blood count 8.3 hemoglobin 10.5 hematocrit 37 MCV 71 platelets 472,000 CMP within normal limit except glucose 153 and follow-up labs done on March 27, 2020 showed white blood count 7.6 hemoglobin 10.2 hematocrit 35.1 MCV 70 platelets 422 iron saturation 3%, iron 16, TIBC 507, ferritin 4. No family history of colon cancer but grandmother with multiple colon polyps and now undergoing repeated colonoscopy and colon polyp removal. Ms Leach was found to be severely iron deficient as noted above.Treated with parenteral iron Injectafer 750 mg IV on April 18 and April 25, 2020 with excellent response E.g. normalization of iron deficiency anemia Underwent colonoscopy and EGD on May 14, 2019 showed no abnormality And underwent laparoscopic-assisted vaginal hysterectomy on July 09, 2020 for dysfunctional uterine bleeding final pathology report showed acute and chronic endometritis, no malignancy Came for follow-up, denies any specific complaint except generalized weakness and fatigue, as per patient she did not talk to her PMD regarding sleep apnea, but do not get restful sleep at night and uses 2 pillows but no melena hematochezia no hemoptysis hematemesis, no palpitation no shortness of breath or dyspnea on exertion no jaundice Medications: Benadryl Allergy 1 Capsule (of 25 mg) Oral PRN, Cetirizine HCl 1 Tablet (of 10 mg) Oral daily PRN, metFORMIN HCl 1 Tablet (of 500 mg) Oral b.i.d., Pantoprazole Sodium 1 Tablet (of 40 mg) Tablet, enteric coated Oral daily Allergies: No Known Allergies. Review of Systems: Review of Systems is not available for this patient. Vital Signs: Performed on Dec 04, 2020 11:08 Height - 62.00 in Weight - 201 lbs (HIGH) BSA - 1.92 sq.m BMI - 36.76 (HIGH) Temperature - 97.4 F (LOW) Pulse - 95 /min Respiration - 18 /min BP - 124/84 mm(hg) O2 Sat - 98 % Pain - 0 Performance Status: 0 - Fully active, able to carry on all predisease activities without restrictions. (ECOG) Physical Examination: ENMT - Sinuses are nontender. No oral exudates, ulcers, masses, thrush or mucositis. Oropharynx clear. Tongue normal, Respiratory - Lungs are clear to auscultation, Cardiovascular - Regular rate and rhythm of heart, Abdomen - Soft, bowel sounds present, Extremities - No visible edema. Lab/Imaging: Most recent lab results are not available for this patient. Impression: Microcytic hypochromic anemia due to severe iron deficiency probably due to heavy menstrual periods, other possibility could be GI blood loss or iron malabsorption. Anemia work-up done on March 27, 2020 showed ferritin 4, iron saturation 3%, iron 16, TIBC 507 and white blood count 7.6 hemoglobin 10.2 hematocrit 35.1 platelets 422,000 MCV 70 History of oral iron supplement on medication, recently started on oral iron supplement in first week of March 2020 Mild thrombocytosis probably due to iron deficiency Heavy menstrual periods, etiology unclear, endometrial biopsy done last year was inconclusive but endometrial ablation was not a consideration but due to COVID-19 pandemic it was not scheduled, on control pills since April 2019 with no significant improvement in her menses flow.Eventually underwent laparoscopic-assisted vaginal hysterectomy on July 09, 2020 for dysfunctional uterine bleeding Chronic diarrhea, indigestion Diabetes mellitus Severe iron deficiency anemia and poor tolerance to oral iron replacement. Her iron was found to be very low and was recommended IV replacement with 2 doses of Injectafer. As there was no improvement on oral iron supplement so There was a concern she may have iron malabsorption Which was given on April 18, 2020 and April 25, 2020 with excellent response e.g. normalization of iron deficiency anemia and iron stores Colonoscopy/EGD done on May 14, 2019 showed no abnormality Plan: Discussed with patient regarding her labs white blood count 7.4 hemoglobin 12.8 g hematocrit 40.7 platelet 303,000 iron saturation 16.2% ferritin 136 compared to 117 previously iron 49 compared to 32 previously TIBC 301 Clinically, patient doing well with no new signs symptom except persistent generalized weakness and fatigue, etiology remains unclear, her follow-up labs shows hemoglobin normal range iron studies in normal range except mildly low iron saturation but improving. So the possibility could be underlying sleep apnea, will also check B12 level and she will return to clinic in 3 months with CBC and iron studies We will suggest her PMD to consider sleep studies to rule out sleep apnea causing generalized weakness and fatigue Signed By: Keisha Bustos M.D. <<Signature on File>>
[2020-12-05 23:25] LABS: Vitamin B12 497 pg/mL (232-1245)
== END 2020-12-04 08:57 | disposition home or self-care (01) ==
LOC: ONCMED 08:58
PROVIDERS: PCP Nurse Practitioner Family; Visit Provider Internal Medicine Hematology & Oncology
DX: D50.0 Iron deficiency anemia secondary to blood loss (chronic) (principal); N92.0 Excessive and frequent menstruation with regular cycle; D47.3 Essential (hemorrhagic) thrombocythemia; K21.9 Gastro-esophageal reflux disease without esophagitis; K52.9 Noninfective gastroenteritis and colitis, unspecified; E11.9 Type 2 diabetes mellitus without complications; Z79.899 Other long term (current) drug therapy
CPT/HCPCS: 36415; 82607; 82728; 83540; 83550; 85025; 99214

== ENCOUNTER 2021-01-15 17:34 | Emergency (ER) | payer OTHER, SELFPAY ==
[2021-01-15 18:22] VITALS: BP 140/90; PULSE 101; RESP 16; TEMP 36.7; O2SAT 95; BMI 36.6
--- NOTE | 2021-01-15 19:46 | W.ED.WOUNDLC ---
HPI - Wound/Laceration General: Chief Complaint: Wound/Laceration Stated Complaint: Lump on Vaginal area Time Seen by Provider: 01/15/21 19:42 History of Present Illness: HPI narrative: 45-year-old female comes in today with complaints of a bump to her vaginal area for the last 3 days has gotten bigger and more painful. Patient states that she has noticed it over the past few weeks but up until the last 3 days she had not paid much consideration to it. Patient does have a history of diabetes and takes Metformin for it. Patient states that she has had good blood sugar control. Patient denies any fever or chills. Patient appears well. Patient appears in mild to no pain. Review of Systems General: Reports: 10 or more systems reviewed and unremarkable except in HPI and below Skin/Breast: Reports: other (Changing skin lesion to perineal area) PFS ED PFSH: Family History Grandfather Hyperlipidemia maternal Hypertension maternal Stroke maternal Grandmother Heart disease maternal Hyperlipidemia maternal Hypertension maternal Thyroid condition maternal Father Thyroid condition Denies family history of Anesthesia complication Bleeding disorder Social History (Updated 08/12/20 @ 10:51 by Joanna Bal RN) Smoking and tobacco status: never smoked Alcohol intake: current Alcohol intake frequency: holidays/special occasions only Alcohol type: wine Female Reproductive History: Date of last menstrual period: 06/13/20 Physical Exam Const: COMMON NORMALS: no acute distress and patient oriented x3 GENERAL APPEARANCE: cooperative HENMT: COMMON NORMALS: normocephalic and Normal external nose present HEAD & SCALP: normal to inspection and normocephalic NOSE: Normal external nose present Eye: GENERAL EYE: appearance normal, both eyes and all related structures Neck/C-Spine: COMMON NORMALS: full ROM Chest: COMMONS NORMALS: normal inspection of the chest Resp: COMMON NORMALS: normal respiratory effort EFFORT & INSPECTION: Yes able to speak in complete sentences Cardio: COMMON NORMALS: regular rate and regular rhythm RATE: regular rate RHYTHM: regular rhythm GI: COMMON NORMALS: non-tender : COMMON NORMALS: Yes no CVA tenderness BLADDER/KIDNEY EXAM: Yes no CVA tenderness OTHER: Patient has swelling and tenderness to the left labial lip. There appears to be 3 small vesicular lesions. No abscess or other abnormality is noted. Back/Pelvis: COMMON NORMALS: no CVA tenderness and thoracic and lumbar spine normal to inspection Extremity: COMMON NORMALS: normal to inspection Neuro: COMMON NORMALS: patient oriented x3 and moves all extremities Psych: COMMON NORMALS: mental status grossly normal and cooperative Skin: COMMON NORMALS: no rashes or lesions noted GENERAL SKIN EXAM: no rashes or lesions noted Course Vital Signs: Vital signs: Vital Signs Temperature 98.0 F 01/15/21 18:22 Pulse Rate 101 H 01/15/21 18:22 Respiratory Rate 16 01/15/21 18:22 Blood Pressure 140/90 01/15/21 18:22 Pulse Oximetry 95 01/15/21 18:22 MDM - Wound/Laceration MDM Narrative: Medical decision making narrative: 35-year-old female comes in today with some tenderness in her genital area. On exam we noted some swelling and some tenderness to the left labial lip. Also noted 3 small punctate lesions. Differential diagnosis includes intertrigo, herpetic labialis, abscess. No sign of abscess was noted. Tissue does seem to be slightly indurated with surrounding lesions suggesting may be a herpetic labialis. We will start her on some acyclovir. We will also cover her for intertrigo with some Clotrimazole. Patient was given some lidocaine cream for the pain. Patient reported understanding of care plan and need for follow-up or return to the ER for worsening symptoms. Discharge Plan Discharge Patient Disposition: Home Clinical Impression: Intertrigo labialis Condition: Stable Prescriptions: New clotrimazole 1 % cream 1 applic vaginal BID 7 Days Qty: 30 RF: 0 lidocaine 5 % cream 1 applic topical QID PRN (Reason: pain) Qty: 15 RF: 0 valacyclovir 1 gram tablet 1,000 mg PO Q8H 7 Days Qty: 21 RF: 0 No Action metformin 500 mg tablet 500 mg PO BID RF: 0 cetirizine 10 mg tablet 10 mg PO DAILY PRN (Reason: Allergy Symptoms) RF: 0 diphenhydramine HCl [Allergy (diphenhydramine)] 25 mg capsule 25 mg PO TID PRN (Reason: Allergy Symptoms) RF: 0 duloxetine 30 mg capsule,delayed release(DR/EC) 30 mg PO DAILY RF: 0 pantoprazole [Protonix] 40 mg tablet,delayed release (DR/EC) 40 mg PO DAILY 30 Days Qty: 30 RF: 2 ibuprofen 800 mg tablet 800 mg PO TID PRN (Reason: pain) Qty: 60 RF: 0 Discharge Orders: Discharge ED (Routine); Ordered 01/15/21 Ordered By: Maximus Hurtado Referrals: Vinicius Avila NP [Primary Care Provider] - Discharge Diet: Usual diet Discharge Activity: Increase activity as tolerated Patient Instructions: Opioid Safety Activity Restrictions/Additional Instructions: Take medication as directed. Drink plenty of water with medication. Avoid all the cosmetic products to the area. Gently irrigate the area with water, pat dry, apply Chlortrimazole cream twice a day to the area for the next 7 days. Use lidocaine cream to the area 4 times a day as needed for discomfort. Take antibiotic, valacyclovir, 3 times a day for the next 7 days. Monitor site for worsening symptoms. Follow-up or return with primary care for further exam and evaluation. 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
== END 2021-01-15 20:27 | disposition home or self-care (01) ==
PROVIDERS: Emergency Provider Nurse Practitioner Family; PCP Nurse Practitioner Family
DX: K13.0 Diseases of lips (principal)
CPT/HCPCS: 99281

== ENCOUNTER 2021-03-24 11:48 | Outpatient (CLI) | payer OTHER, SELFPAY ==
[2021-03-24 12:54] LABS: Basophils % 0.6 %; Eosinophils # 0.2 10^3/uL (0.0-0.8); Eosinophils % 2.5 %; Hematocrit 42.1 % (37.0-47.0); Hemoglobin 13.5 g/dL (11.5-15.3); Lymphocytes # 2.3 10^3/uL (0.8-4.8); Lymphocytes % 31.4 %; Mean Corpuscular HGB Conc 32.1 g/dL (30.0-36.0); Mean Corpuscular Hemoglobin 28.3 pg (28.0-34.0); Mean Corpuscular Volume 88.3 fl (81-99); Mean Platelet Volume 11.8 fL (7.4-10.4); Monocytes # 0.4 10^3/uL (0.2-0.9); Monocytes % 5.6 %; Neutrophils # 4.26 10^3/uL (1.8-7.7); Neutrophils % 59.5 %; Nucleated Red Blood Cells % 0 %; Platelet Count 303 10^3/cmm (130-400); Red Blood Count 4.77 10^6/uL (4.1-5.3); Red Cell Distribution Width 12.2 % (12.1-15.1); White Blood Count 7.2 10^3/uL (4.0-10.0)
[2021-03-24 13:14] LABS: Ferritin 112 ng/mL (15-150); Iron 37 ug/dL (37-145); Percent Saturation 11.5 % (20-50); Total Iron Binding Capacity 321 mcg/dl; Unsaturated Iron Binding 284 ug/dL (112-347)
--- NOTE | 2021-03-24 15:18 | ONC FU_ITS ---
Dr. Bustos follow up note Patient: Raquel Leach Unit #: [id number]: [id number] Dicatated By: Keisha Bustos M.D.Date of Visit:Mar 24, 2021 Onc Med Follow-up/Prog Note History of Present Illness: Ms. 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 As per patient she has been having heavy menstrual periods since the beginning and many times it last as long as 11 days a month. Denies any history of melena or hematochezia but chronic diarrhea for many years and also history of indigestion. Denies any history of blood transfusion. But she has taken oral iron on multiple occasion and now she is on since first week of March 2020 as her labs done on February 05, 2020 showed white blood count 8.3 hemoglobin 10.5 hematocrit 37 MCV 71 platelets 472,000 CMP within normal limit except glucose 153 and follow-up labs done on March 27, 2020 showed white blood count 7.6 hemoglobin 10.2 hematocrit 35.1 MCV 70 platelets 422 iron saturation 3%, iron 16, TIBC 507, ferritin 4. No family history of colon cancer but grandmother with multiple colon polyps and now undergoing repeated colonoscopy and colon polyp removal. Ms Leach was found to be severely iron deficient as noted above.Treated with parenteral iron Injectafer 750 mg IV on April 18 and April 25, 2020 with excellent response E.g. normalization of iron deficiency anemia Underwent colonoscopy and EGD on May 14, 2019 showed no abnormality And underwent laparoscopic-assisted vaginal hysterectomy on July 09, 2020 for dysfunctional uterine bleeding final pathology report showed acute and chronic endometritis, no malignancy Came for follow-up, denies any specific complaint except generalized weakness and fatigue but no fever chills, no nausea or vomiting, no diarrhea or constipation, no melena hematochezia no hemoptysis hematemesis, no jaundice, no shortness of breath or chest pain but as per she snores a lot at night, there is a concern about possibility of sleep apnea, patient was supposed to talk to her PMD regarding scheduling her for sleep study to confirm but she forgot Medications: Benadryl Allergy 1 Capsule (of 25 mg) Oral PRN, Cetirizine HCl 1 Tablet (of 10 mg) Oral daily PRN Allergies: No Known Allergies. Review of Systems: Review of Systems is not available for this patient. Vital Signs: Performed on Mar 24, 2021 14:12 Height - 62.00 in Weight - 208.8 lbs (HIGH) BSA - 1.95 sq.m BMI - 38.19 (HIGH) Temperature - 98.5 F Pulse - 87 /min Respiration - 18 /min BP - 134/84 mm(hg) O2 Sat - 98 % Pain - 4 Fatigue - 6 Performance Status: 0 - Fully active, able to carry on all predisease activities without restrictions. (ECOG) Physical Examination: ENMT - No mouth sores, no thrush, no jaundice, Respiratory - Lungs are clear to auscultation, Cardiovascular - Regular rate and rhythm of heart, Abdomen - Soft, bowel sounds present, Extremities - No visible edema. Lab/Imaging: Most recent lab results are not available for this patient. Impression: Microcytic hypochromic anemia due to severe iron deficiency probably due to heavy menstrual periods, other possibility could be GI blood loss or iron malabsorption. Anemia work-up done on March 27, 2020 showed ferritin 4, iron saturation 3%, iron 16, TIBC 507 and white blood count 7.6 hemoglobin 10.2 hematocrit 35.1 platelets 422,000 MCV 70 History of oral iron supplement on medication, recently started on oral iron supplement in first week of March 2020 Mild thrombocytosis probably due to iron deficiency Heavy menstrual periods, etiology unclear, endometrial biopsy done last year was inconclusive but endometrial ablation was not a consideration but due to COVID-19 pandemic it was not scheduled, on control pills since April 2019 with no significant improvement in her menses flow.Eventually underwent laparoscopic-assisted vaginal hysterectomy on July 09, 2020 for dysfunctional uterine bleeding Chronic diarrhea, indigestion Diabetes mellitus Severe iron deficiency anemia and poor tolerance to oral iron replacement. Her iron was found to be very low and was recommended IV replacement with 2 doses of Injectafer. As there was no improvement on oral iron supplement so There was a concern she may have iron malabsorption Which was given on April 18, 2020 and April 25, 2020 with excellent response e.g. normalization of iron deficiency anemia and iron stores Colonoscopy/EGD done on May 14, 2019 showed no abnormality Plan: . Discussed with patient regarding her labs white blood count 7.2 hemoglobin 13.5 g compared to 12.8 g previously hematocrit 42.1 platelets 303,000 iron studies shows iron saturation 11.5% ferritin 112, compared to 136 previously iron 37 TIBC 321 Clinically, patient doing well with no new signs symptom, except generalized weakness and fatigue which could be multifactorial including due to underlying sleep apnea, patient was advised to discuss with her PMD regarding scheduling her for sleep study, if sleep apnea is confirmed, she may benefit from CPAP machine. As far as iron deficiency anemia is concerned, her hemoglobin is stable rather improving and iron studies shows iron stores in the lower side of normal range, will continue to monitor she will return to clinic in 3 months with CBC and iron studies, patient was advised to discuss with PMD regarding sleep study. Signed By: Keisha Bustos M.D. <<Signature on File>>
== END 2021-03-24 11:49 | disposition home or self-care (01) ==
PROVIDERS: PCP Nurse Practitioner Family; Visit Provider Internal Medicine Hematology & Oncology
DX: D50.0 Iron deficiency anemia secondary to blood loss (chronic) (principal); N92.0 Excessive and frequent menstruation with regular cycle; D75.838 Other thrombocytosis; K52.89 Other specified noninfective gastroenteritis and colitis; E11.9 Type 2 diabetes mellitus without complications; Z79.899 Other long term (current) drug therapy
CPT/HCPCS: 36415; 82728; 83540; 83550; 85025; 99214

== ENCOUNTER 2021-06-24 11:15 | Outpatient (CLI) | payer OTHER, SELFPAY ==
[2021-06-24 12:12] LABS: Basophils # 0.1 10^3/uL (0.0-0.1); Basophils % 0.7 %; Eosinophils # 0.2 10^3/uL (0.0-0.8); Eosinophils % 2.5 %; Hematocrit 41.5 % (37.0-47.0); Hemoglobin 13.1 g/dL (11.5-15.3); Lymphocytes # 2.5 10^3/uL (0.8-4.8); Lymphocytes % 35.5 %; Mean Corpuscular HGB Conc 31.6 g/dL (30.0-36.0); Mean Corpuscular Hemoglobin 27.2 pg (28.0-34.0); Mean Corpuscular Volume 86.3 fl (81-99); Monocytes # 0.4 10^3/uL (0.2-0.9); Neutrophils % 54.7 %; Nucleated Red Blood Cells % 0 %; Platelet Count 314 10^3/cmm (130-400); Red Blood Count 4.81 10^6/uL (4.1-5.3); Red Cell Distribution Width 12.2 % (12.1-15.1); White Blood Count 7.1 10^3/uL (4.0-10.0)
[2021-06-24 12:25] LABS: Ferritin 104 ng/mL (15-150); Iron 77 ug/dL (37-145); Percent Saturation 26.2 % (20-50); Total Iron Binding Capacity 293 mcg/dl; Unsaturated Iron Binding 216 ug/dL (112-347)
[2021-06-24 12:41] LABS: Vitamin B12 1144 pg/mL (232-1245)
[2021-06-24 12:49] LABS: Folate Level 13.6 ng/mL (4.8-37.3)
--- NOTE | 2021-06-24 16:42 | ONC FU_ITS ---
Maye Noble Progress Note Patient: Raquel Leach Unit #: [id number]: 1985 Dicatated By: Maye Noble N.P.Date of Visit:Jun 24, 2021 Onc MED Follow-up/Prog Note Chief Complaint: Iron deficiency anemia History of Present Illness: Ms. Raquel Leach, is a 35-year-old female with ' lifelong' history of ,off and on anemia and heavy menstrual periods, now being evaluated and managed by Dr. Mosley, [employer] as per patient last year she did try Depo shot without much help then , eventually in April 2019 she was started on control pill and ibuprofen for pelvic pain and she also underwent endometrial biopsy last year , As per patient it showed no evidence of endometriosis but endometrial ablation was recommended early this year but due to COVID-19 pandemic it was never scheduled. As per patient she has been having heavy menstrual periods since the beginning and many times it last as long as 11 days a month. Denies any history of melena or hematochezia but chronic diarrhea for many years and also history of indigestion. Denies any history of blood transfusion. But she has taken oral iron on multiple occasion and now she is on since first week of March 2020 as her labs done on February 05, 2020 showed white blood count 8.3 hemoglobin 10.5 hematocrit 37 MCV 71 platelets 472,000 CMP within normal limit except glucose 153 and follow-up labs done on March 27, 2020 showed white blood count 7.6 hemoglobin 10.2 hematocrit 35.1 MCV 70 platelets 422 iron saturation 3%, iron 16, TIBC 507, ferritin 4. No family history of colon cancer but grandmother with multiple colon polyps and now undergoing repeated colonoscopy and colon polyp removal. Ms Leach was found to be severely iron deficient as noted above.Treated with parenteral iron Injectafer 750 mg IV on April 18 and April 25, 2020 with excellent response E.g. normalization of iron deficiency anemia Underwent colonoscopy and EGD on May 14, 2019 showed no abnormality And underwent laparoscopic-assisted vaginal hysterectomy on July 09, 2020 for dysfunctional uterine bleeding final pathology report showed acute and chronic endometritis, no malignancy Came for follow-up, denies any specific complaint except generalized weakness and fatigue but no fever chills, no nausea or vomiting, no diarrhea or constipation, no melena hematochezia no hemoptysis hematemesis, no jaundice, no shortness of breath or chest pain. She states that she has been feeling well. Review Of Symptoms:See above. Past Medical History: Ms. Leach's medical history is unremarkable. Past Surgical History: Caesarean section Tubal ligation Allergies: No Known Allergies. Medications: Benadryl Allergy 1 Capsule (of 25 mg) Oral PRN Cetirizine HCl 1 Tablet (of 10 mg) Oral daily PRN Family History: Ms. Leach's mother is alive: hypertension. Ms. Leach's father is alive: alcoholism, and myocardial infarction. Social History: Ms. Leach is . Ms. Leach has never smoked. She drinks occasionally. patient states drinks occ. Physical Examination: Performed on Jun 24, 2021 12:59: Height - 62.00 in, Weight - 202.6 lbs (LOW), BSA - 1.92 sq.m, BMI - 37.06 (HIGH), Temperature - 97.5 F (LOW), Pulse - 78 /min, Respiration - 16 /min, BP - 139/85 mm(hg), O2 Sat - 98 %, Pain - 0, and Fatigue - 5. Performance Status: 0 - Fully active, able to carry on all predisease activities without restrictions. (ECOG) Constitutional Alert, cooperative, oriented. Mood and affect appropriate. Appears close to chronological age. Well nourished. Well developed. Head Normocephalic; no scars. Eyes Conjunctivae and sclerae are clear and without icterus. Pupils are reactive and equal. Hematologic/Lymphatic No petechiae or purpura. No tender or palpable lymph nodes in the cervical, supraclavicular, axillary or inguinal area. Respiratory Lungs are clear to auscultation without rhonchi or wheezing. Cardiovascular Regular rate and rhythm of heart without murmurs, gallops or rubs. Abdomen Non-tender, non-distended, no masses, ascites or hepatosplenomegaly. Good bowel sounds. No guarding or rebound tenderness. Extremities No visible deformities, no cyanosis, clubbing or edema. Pulses 3+ and equal bilaterally. Psychiatric Alert and oriented times three. Coherent speech. Verbalizes understanding of our discussions today. Laboratory: Test performed on Jun 24, 2021 11:46 Ferritin 104 ng/mL Folate, Serum 13.6 ng/mL Iron 77 mcg/dL Vitamin B12 1144 pg/mL Iron Binding Capacity (TIBC) 293 mcg/dl % Iron Saturation 26.2 % UIBC 216 mcg/dL WBC 7.1 10 3/uL RBC 4.81 10 6/uL HGB 13.1 g/dL HCT 41.5 % MCV 86.3 fl MCH 27.2 pg MCHC 31.6 g/dL RDW 12.2 % Platelet Count 314 10 3/cmm MPV 11.0 fL Neutrophils 3.90 10 3/uL Lymphocytes 2.5 10 3/uL Monocytes 0.4 10 3/uL Eosinophils 0.2 10 3/uL Basophils 0.1 10 3/uL Neutrophil % 54.7 % Lymphocyte % 35.5 % Monocyte % 6.0 % Eosinophil % 2.5 % Basophils % 0.7 % NRBC % 0 % Impression: Microcytic hypochromic anemia due to severe iron deficiency probably due to heavy menstrual periods, other possibility could be GI blood loss or iron malabsorption. Anemia work-up done on March 27, 2020 showed ferritin 4, iron saturation 3%, iron 16, TIBC 507 and white blood count 7.6 hemoglobin 10.2 hematocrit 35.1 platelets 422,000 MCV 70 History of oral iron supplement on medication, recently started on oral iron supplement in first week of March 2020 Mild thrombocytosis probably due to iron deficiency Heavy menstrual periods, etiology unclear, endometrial biopsy done last year was inconclusive but endometrial ablation was not a consideration but due to COVID-19 pandemic it was not scheduled, on control pills since April 2019 with no significant improvement in her menses flow.Eventually underwent laparoscopic-assisted vaginal hysterectomy on July 09, 2020 for dysfunctional uterine bleeding Chronic diarrhea, indigestion Diabetes mellitus Severe iron deficiency anemia and poor tolerance to oral iron replacement. Her iron was found to be very low and was recommended IV replacement with 2 doses of Injectafer. As there was no improvement on oral iron supplement so There was a concern she may have iron malabsorption Which was given on April 18, 2020 and April 25, 2020 with excellent response e.g. normalization of iron deficiency anemia and iron stores Colonoscopy/EGD done on May 14, 2019 showed no abnormality Plan: Labs were discussed with patient WBC at 7.1, hemoglobin 13.1, hematocrit 41.5, platelets 314,000. Iron studies include iron saturation at 26.2 ferritin 104, iron 77 TIBC 293, and vitamin B12 at 1144. Patient is feeling well and denies any problems. Her labs have remained stable over the course of the past couple of visits. She will follow-up as needed. Signed By: Maye Noble NElvin. <<Signature on File>>
== END 2021-06-24 11:16 | disposition home or self-care (01) ==
LOC: ONCMED 11:24
PROVIDERS: PCP Nurse Practitioner Family; Visit Provider Nurse Practitioner Family
DX: D50.9 Iron deficiency anemia, unspecified (principal); Z90.710 Acquired absence of both cervix and uterus
CPT/HCPCS: 36415; 82607; 82728; 82746; 83540; 83550; 85025; 99214

== ENCOUNTER 2021-08-21 08:48 | Emergency (ER) | payer OTHER, SELFPAY ==
[2021-08-21 08:57] VITALS: PULSE 91; RESP 16; TEMP 36.6; O2SAT 98; BMI 36.6
--- NOTE | 2021-08-21 09:11 | XR_ITS ---
WS: [id number] Portable AP upright chest, 08/21/2021 Clinical Data: COVID symptoms Comparison: PA and lateral chest, 03/24/2015. Findings: No nodules, masses or effusions are seen. The heart is normal. The pulmonary vascularity is not increased. No pneumonia or pneumothorax is seen. XR/XR chest 1V portable [id number] Impression: Negative chest.
--- NOTE | 2021-08-21 09:11 | ED_ITS ---
HPI - General Adult General: Chief complaint: Abdominal Pain Stated complaint: Whole body aching, cramping, headache Time Seen by Provider: 08/21/21 09:01 History of Present Illness: Patient is a 36-year-old female comes to the ED with generalized body aches, headache and nausea. Symptoms started this morning when she woke up. Endorses chills and headache as well. She has not had any known sick contacts. Denies any fevers, nasal congestion drainage, sore throat, cough, shortness of breath, chest pain, abdominal pain, emesis, bladder or bowel symptoms. Patient was seen in urgent care yesterday after being diagnosed with contact dermatitis on hands from nail moroccan use. She was given a steroid shot in urgent care. Associated symptoms: Reports headache(s) and nausea; Deny chest pain, dyspnea, rash, palpitations or vomiting Review of Systems Const: Reports: chills and body aches; Denies: fever(s) or fatigue Eyes: Denies: change in vision or eye discomfort ENMT: Denies: throat pain, odynophagia, nasal discharge or nasal congestion Card: Denies: chest pain, palpitations, edema, swelling of feet/ankles, dyspnea on exertion or orthopnea Resp: Denies: dyspnea, productive cough or non-productive cough GI: Reports: nausea; Denies: abdominal pain, vomiting, diarrhea, constipation or hematochezia : Denies: flank pain, dysuria or hematuria Musc: Denies: neck pain, back pain or extremity swelling Skin/Breast: Denies: rash or new lesions Neuro: Reports: headache(s); Denies: numbness in extremities or weakness in extremities PFS ED PFSH: Surgical History H/O: hysterectomy 07/09/2020- laparoscopic assisted vaginal hysterectomy, lysis of adhesions, cystoscopy performed by Dr. Mosley at [facility] Family History Grandfather Hyperlipidemia maternal Hypertension maternal Stroke maternal Grandmother Heart disease maternal Hyperlipidemia maternal Hypertension maternal Thyroid condition maternal Father Thyroid condition Denies family history of Anesthesia complication Bleeding disorder Social History Smoking and tobacco status: never smoked Alcohol intake: current Alcohol intake frequency: holidays/special occasions only Alcohol type: wine Female Reproductive History: Date of last menstrual period: 06/13/20 Physical Exam Const: COMMON NORMALS: no acute distress, patient oriented x3, healthy appearing and alert GENERAL APPEARANCE: cooperative and comfortable HENMT: COMMON NORMALS: normocephalic HEAD & SCALP: normocephalic MOUTH: Normal oral and palatal mucosa present THROAT: posterior oropharynx normal and uvula midline Neck/C-Spine: COMMON NORMALS: supple GENERAL: Yes normal visual inspection Resp: COMMON NORMALS: normal respiratory effort, No retractions, No use of accessory muscles and clear to auscultation bilaterally AUSCULTATION: clear to auscultation bilaterally Cardio: COMMON NORMALS: regular rate, regular rhythm, S1 normal heart sound present, S2 normal heart sound present, No gallops present (Cardio), No clicks present (Cardio), No murmurs present (Cardio) and Peripheral pulses 2+ throughout RATE: regular rate RHYTHM: regular rhythm HEART SOUNDS: S1 normal heart sound present and S2 normal heart sound present PERIPHERAL PULSES: Peripheral pulses 2+ throughout GI: COMMON NORMALS: Normal to inspection, nondistended, normoactive bowel sounds present, Soft to palpation, non-tender and no masses PALPATION: Yes Soft to palpation : COMMON NORMALS: Yes no CVA tenderness BLADDER/KIDNEY EXAM: Yes no CVA tenderness Back/Pelvis: COMMON NORMALS: no CVA tenderness Extremity: COMMON NORMALS: normal to inspection Neuro: COMMON NORMALS: patient oriented x3 SENSORIUM/ORIENTATION: Yes alert GAIT: Yes Normal gait present Skin: GENERAL SKIN EXAM: dry skin Course Vital Signs: Vital signs: Vital Signs Temperature 97.9 F 08/21/21 08:57 Pulse Rate 92 08/21/21 10:51 Respiratory Rate 16 08/21/21 10:10 Blood Pressure 133/91 08/21/21 10:51 Pulse Oximetry 99 08/21/21 10:51 [facility] - General Adult Medical Decision Making Patient is a 36-year-old female comes to the ED with a headache, generalized body aches and nausea. Vitals are stable. Exam is benign and patient is healthy and nontoxic appearing and in no acute distress. Chest x-ray shows no acute findings. Influenza and COVID were both negative. Patient likely has a viral syndrome and she was stable for discharge home. Follow-up with PCP in 1 week. Return ED precautions given. Patient stood agree with plan. Lab Data Radiology Impressions Chest X-Ray 08/21/21 09:11 Impression: Negative chest. Laboratory Results Coronavirus 229E (PCR) Not detected (NOT DETECT) 08/21/21 10:05 Influenza Type A Ag Negative (Negative) 08/21/21 10:05 Influenza Type B Ag Negative (Negative) 08/21/21 10:05 SARS-CoV-2 (PCR) Not detected (NOT DETECT) 08/21/21 10:05 Discharge Plan Discharge Patient Disposition: Home Clinical Impression: Viral syndrome Condition: Stable Prescriptions: No Action ibuprofen 200 mg Tablet 800 mg PO Q8H PRN (Reason: Pain) 0RF ProAir HFA 90 mcg/actuation Hfa Aerosol Inhaler 2 puff INHALATION QID PRN (Reason: Shortness Of Breath) 0RF Discharge Orders: Discharge ED (Routine); Ordered 08/21/21 Ordered By: Peter Garcia Referrals: Vinicius Avila NP [Primary Care Provider] - Discharge Diet: Advance as tolerated Discharge Activity: Increase activity as tolerated Patient Instructions: Viral Syndrome (ED) Activity Restrictions/Additional Instructions: Follow-up with medical provider as directed in the next 5 to 7 days reevaluation. Your COVID and influenza tests are pending, so call the hospital later this afternoon to find out test results. Drink plenty of fluids and stay hydrated. Take [id number] Tylenol or Motrin for pain or fevers. Return to the ER or your medical provider if condition worsens. Please read and understand discharge instructions. Thank you for choosing [facility] for your healthcare needs today. Please realize this is an emergency room and that we are providing you with a medical screening exam and this may not be complete and all inclusive of all the testing and or work up that you may need to determine your ailment or severity of your illness. It is very important that you follow up as instructed or that you return to the Emergency Department should you have concerns or if your condition changes or worsens in any way. Coding Level of Care Code ED Assistant Curator for Tyron Smith Exam Comprehensive
--- NOTE | 2021-08-21 09:52 | PC.PHAR ---
pt states she takes no rx medications-pt states she stop taking metformin 500mg bid last filled 12/17/20 30d/s cymbalta 30mg daily last filled 12/06/2020 pt states not taken for many months-
[2021-08-21] MEDS: ketorolac 60 mg/2 mL INJ IM (10:07)
[2021-08-21 10:10] VITALS: PULSE 89; RESP 16; O2SAT 98
[2021-08-21 10:51] VITALS: BP 133/91; PULSE 92; O2SAT 99
[2021-08-21 11:32] LABS: Influenza A by IFA Negative (Negative); Influenza B by IFA Negative (Negative)
[2021-08-21 12:26] LABS: Adenovirus Not Detected (NOT DETECT); Chlamydia Pneumoniae Not Detected (NOT DETECT); Coronavirus 229E,HKU1,NL63,OC4 Not Detected (NOT DETECT); Human Metapneumovirus Not Detected (NOT DETECT); Human Rhinovirus/Enterovirus Not Detected (NOT DETECT); Influenza A Not Detected (NOT DETECT); Influenza A H1 Not Detected (NOT DETECT); Influenza A H1-2009 Not Detected (NOT DETECT); Influenza A H3 Not Detected (NOT DETECT); Influenza B Not Detected (NOT DETECT); Mycoplasma Pneumoniae Not Detected (NOT DETECT); Parainfluenza Virus Type 1 Not Detected (NOT DETECT); Parainfluenza Virus Type 2 Not Detected (NOT DETECT); Parainfluenza Virus Type 3 Not Detected (NOT DETECT); Parainfluenza Virus Type 4 Not Detected (NOT DETECT); Respiratory Syncytial Virus A Not Detected (NOT DETECT); Respiratory Syncytial Virus B Not Detected (NOT DETECT); SARS-COV-2 Not Detected (NOT DETECT)
== END 2021-08-21 10:57 | disposition home or self-care (01) ==
PROVIDERS: Emergency Provider Physician Assistant; PCP Nurse Practitioner Family
DX: B34.9 Viral infection, unspecified (principal)
CPT/HCPCS: 71045; 87635; 87804; 96372; 99283; J1885

== ENCOUNTER → 2023-06-01 13:15 | Outpatient (BNVA) | payer OTHER, SELFPAY | PROVIDERS: PCP Nurse Practitioner Family; Visit Provider Registered Nurse Neonatal Intensive Care | DX: M79.671 Pain in right foot (principal); W19.XXXA Unspecified fall, initial encounter | CPT/HCPCS: 73630 ==

== ENCOUNTER 2023-08-25 09:00 | Outpatient (CLI) | payer OTHER, SELFPAY ==
--- NOTE | 2023-08-25 09:07 | XR_ITS ---
WS: [id number] Exam: XR knee RT 4V [id number] Date/Time of Exam: 08/25/2023 9:07 AM Reason For Exam: Right knee pain No fracture or dislocation noted. Articular relationships are intact. No joint effusion. Impression: Normal knee Kellgren-Bj Classification: 0
--- NOTE | 2023-08-25 09:07 | XR_ITS ---
WS: [id number] Exam: XR knee LT 4V [id number] Date/Time of Exam: 08/25/2023 9:07 AM Reason For Exam: Left knee pain No fracture or dislocation noted. Articular relationships are intact. No joint effusion. Impression: Normal LEFT knee Kellgren-Bj Classification: 0
== END 2023-08-25 09:01 | disposition home or self-care (01) ==
LOC: RAD 09:03
PROVIDERS: PCP Nurse Practitioner Family; Visit Provider Nurse Practitioner Family
DX: M25.562 Pain in left knee (principal); M25.561 Pain in right knee
CPT/HCPCS: 73564

== ENCOUNTER → 2024-01-12 14:07 | Outpatient (BNVA) | payer OTHER, SELFPAY | PROVIDERS: PCP Nurse Practitioner Family; Visit Provider Nurse Practitioner | DX: R09.81 Nasal congestion (principal) | CPT/HCPCS: 87426 ==

== ENCOUNTER 2024-07-14 11:47 | Emergency (ER) | payer OTHER, SELFPAY ==
[2024-07-14 11:50] VITALS: BP 144/85; PULSE 99; RESP 15; TEMP 36.7; O2SAT 97; BMI 34.7
[2024-07-14 11:58] LABS: Glucose Point of Care 398 mg/dL (70-110)
[2024-07-14 13:37] VITALS: BP 130/84; PULSE 100; RESP 16; O2SAT 96
--- NOTE | 2024-07-14 14:21 | W.ED.RECABL ---
HPI - Recheck/Abnormal Lab/Rx General: Chief Complaint: Recheck/Abnormal Lab/Rx Stated Complaint: blood sugar is 436 Time Seen by Provider: 07/14/24 12:48 History of Present Illness: This patient is a 39-year-old white female who presents to the emergency department with high blood sugar. Patient states her blood sugar got as high as 436 today. She has a type II diabetic. She is on Trulicity. She states she was on 3 units weekly and her doctor recently increased her to 4.5. She missed her shot on because the insurance company did not approve it. She has not had a fever. She has not had any nausea or vomiting. She does have some diarrhea but she states that is chronic. She has not had any dysuria. No cough or cold symptoms. Related Data Home Medications ?Medication ?Instructions ?Recorded ?Confirmed lisinopril 2.5 mg tablet 2.5 mg PO 11/23/23 06/14/24 montelukast 10 mg tablet 10 mg PO 11/23/23 06/14/24 simvastatin 20 mg tablet 20 mg PO 11/23/23 06/14/24 Previous Rx's ?Medication ?Instructions ?Recorded valacyclovir 1 gram tablet 1,000 mg PO TID 7 days #21 tabs 08/06/23 dulaglutide 4.5 mg/0.5 mL 4.5 mg (0.5 mL) SUBCUT Q7D #6 mL 06/15/24 [facility] Allergies Allergy/AdvReac Type Severity Reaction Status Date / Time No Known Allergies Allergy Verified 06/14/24 16:17 Review of Systems General: Reports: 10 or more systems reviewed and unremarkable except in HPI and below PFSH ED PFSH: Surgical History H/O: hysterectomy 07/09/2020- laparoscopic assisted vaginal hysterectomy, lysis of adhesions, cystoscopy performed by Dr. Mosley at [facility] Family History Grandfather Hyperlipidemia maternal Hypertension maternal Stroke maternal Grandmother Heart disease maternal Hyperlipidemia maternal Hypertension maternal Thyroid disease maternal Father Thyroid disease Denies family history of Anesthesia complication Bleeding disorder Social History Smoking and tobacco/nicotine status: unknown if used tobacco/nicotine Alcohol intake: current Alcohol intake frequency: holidays/special occasions only Alcohol type: wine Substance/Drug Use: never Physical Exam Const: COMMON NORMALS: no acute distress, patient oriented x3 and no limitations GENERAL APPEARANCE: cooperative and comfortable HENMT: COMMON NORMALS: normocephalic, atraumatic, Normal nasal mucous membranes and turbinates present, moist oral mucous membranes and oropharynx normal HEAD & SCALP: normal to inspection, normocephalic and atraumatic FACE & SINUS: normal facial exam NOSE: Normal nasal mucous membranes and turbinates present Eye: COMMON NORMALS: Equal, round and reactive pupils present, EOMs intact bilaterally and conjunctivae normal GENERAL EYE: appearance normal, both eyes and all related structures CONJUNCTIVA: Yes conjunctivae normal PUPIL: Yes Equal, round and reactive pupils present Neck/C-Spine: COMMON NORMALS: supple and no JVD Chest: COMMONS NORMALS: normal inspection of the chest Resp: COMMON NORMALS: normal respiratory effort and clear to auscultation bilaterally AUSCULTATION: clear to auscultation bilaterally Cardio: COMMON NORMALS: no JVD, regular rate, regular rhythm, No gallops present (Cardio), No murmurs present (Cardio) and No rub (Cardio) RATE: regular rate RHYTHM: regular rhythm GI: COMMON NORMALS: Normal to inspection, nondistended, normoactive bowel sounds present, Soft to palpation and non-tender AUSCULTATION: Yes normoactive bowel sounds PALPATION: Yes Soft to palpation : COMMON NORMALS: Yes no CVA tenderness BLADDER/KIDNEY EXAM: Yes no CVA tenderness Back/Pelvis: COMMON NORMALS: no CVA tenderness and thoracic and lumbar spine normal to inspection Extremity: COMMON NORMALS: normal to inspection Neuro: COMMON NORMALS: patient oriented x3 and CN's II-XII intact bilaterally Psych: COMMON NORMALS: mental status grossly normal, Normal thought process present and cooperative THOUGHT PROCESS: Normal thought process present Skin: COMMON NORMALS: no rashes or lesions noted, turgor normal and no jaundice GENERAL SKIN EXAM: no rashes or lesions noted and turgor normal Course Vital Signs: Vital signs: Vital Signs Temperature 98.0 F 07/14/24 11:50 Pulse Rate 100 07/14/24 13:37 Respiratory Rate 16 07/14/24 13:37 Blood Pressure 130/84 07/14/24 13:37 Pulse Oximetry 96 07/14/24 13:37 Oxygen Delivery Me thod Room Air 07/14/24 11:50 MDM - Recheck/Abnormal Lab/Rx Medical Decision Making I discussed with the patient that since she is a type II diabetic she should not run into any acute problems with blood sugar in this range. We do not have Trulicity in the emergency department so I could not give her an injection here. I recommended she push fluids to prevent dehydration. Recommended she get a hold of her physician, insurance company and pharmacy on Tuesday to get the Trulicity prescription sorted out. She was discharged in stable condition. Lab Data Laboratory Results POC Glucose 398 mg/dL (70-110) H 07/14/24 11:51 No radiology studies performed this visit Discharge Plan Discharge Patient Disposition: Home Clinical Impression: DM type 2 (diabetes mellitus, type 2) Qualifiers: Diabetes mellitus fpc insulin use: without long term acute care registered nurse use Diabetes mellitus complication status: with hyperglycemia Qualified Code(s): E11.65 - Type 2 diabetes mellitus with hyperglycemia Condition: Stable Prescriptions: No Action simvastatin 20 mg tablet 20 mg PO montelukast 10 mg tablet 10 mg PO lisinopril 2.5 mg tablet 2.5 mg PO valacyclovir 1 gram tablet 1,000 mg PO TID 7 Days Qty: 21 0RF Trulicity 4.5 mg/0.5 mL pen injector 4.5 mg SUBCUT Q7D Qty: 6 1RF Discharge Orders: Discharge ED (Routine); Ordered 07/14/24 Ordered By: Albert Juares Referrals: Rosalina Tuttle FNP [Primary Care Provider] - Activity Restrictions/Additional Instructions: Contact your primary care provider on Tuesday regarding the Trulicity prescription. Print Language: Stateless Coding Level of Care Code ED Acid Mixer for Tyron Smith
== END 2024-07-14 13:35 | disposition home or self-care (01) ==
PROVIDERS: Emergency Provider Emergency Medicine; PCP Nurse Practitioner Family
DX: E11.65 Type 2 diabetes mellitus with hyperglycemia (principal)
CPT/HCPCS: 36416; 82962; 99283

== ENCOUNTER 2024-10-11 09:22 | Outpatient (CLI) | payer OTHER, SELFPAY ==
--- NOTE | 2024-10-11 09:33 | XR_ITS ---
WS: [id number] XR cervical spine fl/ex [id number] REASON FOR EXAM: L SHOULDER PAIN FINDINGS: Slight reversal of the normal lordosis of the cervical spine. No significant vertebral body abnormality. Intervertebral disc spaces are intact and well preserved. 1 to 2 mm of neutral anterolisthesis of C3-4 on C5 this listhesis does not change significantly with flexion but is reduced with extension. Normal facet joints. XR/XR cervical spine fl/ex [id number] IMPRESSION: Abnormality of the cervical spine curvature and minimal spondylolisthesis as ab ove.
--- NOTE | 2024-10-11 09:33 | XR_ITS ---
WS: [id number] XR shoulder LT min 2V* [id number] REASON FOR EXAM: L SHOULDER PAIN FINDINGS: No fracture or focal bone lesion. Minimal narrowing of the acromioclavicular joint space with no significant subchondral bone change. Glenohumeral joint space is not diagnostically demonstrated. There may be mild narrowing. There is mild subchondral sclerosis of the glenoid. No significant abnormality of the humeral head. XR/XR shoulder LT min 2V* [id number] IMPRESSION: Minimal osteoarthropathy of the acromioclavicular joint. Possibly mild osteoarthritis of the glenohumeral joint. No significant rotator cuff tendon arthropathy.
== END 2024-10-11 09:23 | disposition home or self-care (01) ==
PROVIDERS: PCP Nurse Practitioner Family; Visit Provider Nurse Practitioner Family
DX: M25.512 Pain in left shoulder (principal); R93.7 Abnormal findings on diagnostic imaging of other parts of musculoskeletal system
CPT/HCPCS: 72040; 73030

== ENCOUNTER → 2024-10-18 08:10 | Outpatient (BNVA) | payer OTHER, SELFPAY | PROVIDERS: PCP Nurse Practitioner Family; Visit Provider Physician Assistant | DX: M25.512 Pain in left shoulder (principal) | CPT/HCPCS: 73030 ==

== ENCOUNTER 2024-11-21 16:52 | Emergency (ER) | payer OTHER, SELFPAY ==
[2024-11-21 17:29] VITALS: BP 121/79; PULSE 99; RESP 18; TEMP 36.9; O2SAT 99; BMI 33.6
--- NOTE | 2024-11-21 18:35 | CTR_ITS ---
PROCEDURE INFORMATION: Exam: CT Abdomen And Pelvis With Contrast Exam date and time: 11/21/2024 7:07 PM Age: 39 years old Clinical indication: Abdominal pain; Generalized; Prior surgery; Surgery date: 6+ months; Surgery type: Partial hysterectomy; Additional info: Rlq abdominal pain TECHNIQUE: Imaging protocol: Computed tomography of the abdomen and pelvis with contrast. Radiation optimization: All CT scans at this facility use at least one of these dose optimization techniques: automated exposure control; mA and/or kV adjustment per patient size (includes targeted exams where dose is matched to clinical indication); or iterative reconstruction. Contrast material: OMNIPAQUE 350; Contrast volume: 100 ml; Contrast route: INTRAVENOUS (IV); COMPARISON: US gall bladder [id number] 05/21/2020 11:42 AM RADIATION DOSE METRICS: Total DLP (mGy-cm): 812.03 FINDINGS: Lungs: Clear basilar lung parenchyma. Pleural spaces: No pleural fluid. Heart: Normal heart size. Liver: Normal configuration. Homogeneous parenchyma. Gallbladder and biliary ducts: No regional inflammation. No calcified stones. No ductal dilation. Pancreas: No pancreatic edema or mass. Spleen: Normal. No splenomegaly. Adrenal glands: Normal configuration. Kidneys and ureters: Kidneys enhance symmetrically and demonstrate no evidence of mass, calculus, obstruction, or inflammation. Stomach and bowel: Unremarkable. No obstruction. No mural thickening. Appendix: Normal appendix is confirmed. Intraperitoneal space: No free air. No significant fluid collection. Vasculature: Normal caliber arterial structures. Lymph nodes: No enlarged lymph nodes. Urinary bladder: Unremarkable as visualized. Reproductive: Right ovary is situated in the midline and contains a 2.9 cm thin walled simple cyst. There is slightly diminished venous return in the right ovary as compared to the left when comparing gonadal veins. Left ovary is situated near the pelvic sidewall and also contains a dominant simple cyst measuring 3.4 cm in diameter. Prior hysterectomy. Bones/joints: No fracture or destructive lesion. Soft tissues: No perineal/perianal abscess or inflammation. CT/CT abdomen pelvis w con* [id number] IMPRESSION: The right ovary is situated in the midline. There is slightly diminished venous return from the right ovary is compared to the left which could reflect features of partial or intermittent ovarian torsion. Pelvic ultrasound with Doppler recommended for further evaluation.
--- NOTE | 2024-11-21 18:42 | W.ED.ABDPA2 ---
HPI - Abdominal Pain General: Chief Complaint: Abdominal Pain Stated Complaint: low rt abd pain Time Seen by Provider: 11/21/24 18:34 History of Present Illness: 39-year-old female with history of hypertension and hyperlipidemia who presents emergency room with right lower quadrant abdominal pain. She has had some nausea for couple of days now. Subjective fevers. Some nausea but no vomiting. No dysuria. She has had a hysterectomy but no other abdominal surgeries. Related Data Home Medications ?Medication ?Instructions ?Recorded ?Confirmed lisinopril 2.5 mg tablet 2.5 mg PO 11/23/23 10/18/24 montelukast 10 mg tablet 10 mg PO 11/23/23 10/18/24 simvastatin 20 mg tablet 20 mg PO 11/23/23 10/18/24 Previous Rx's ?Medication ?Instructions ?Recorded valacyclovir 1 gram tablet 1,000 mg PO TID 7 days #21 tabs 08/06/23 dulaglutide 4.5 mg/0.5 mL 4.5 mg (0.5 mL) SUBCUT Q7D #6 mL 06/15/24 subcutaneous pen injector (Trulicity) Allergies Allergy/AdvReac Type Severity Reaction Status Date / Time No Known Allergies Allergy Verified 11/21/24 17:32 Review of Systems Narrative: Constitutional symptoms: Negative except as documented in HPI. Skin symptoms: Negative except as documented in HPI. Eye symptoms: Negative except as documented in HPI. ENMT symptoms: Negative except as documented in HPI. Respiratory symptoms: Negative except as documented in HPI. Cardiovascular symptoms: Negative except as documented in HPI. Gastrointestinal symptoms: Negative except as documented in HPI. Genitourinary symptoms: Negative except as documented in HPI. Musculoskeletal symptoms: Negative except as documented in HPI. Neurologic symptoms: Negative except as documented in HPI. Psychiatric symptoms: Negative except as documented in HPI. Endocrine symptoms: Negative except as documented in HPI. PFSH ED PFSH: Surgical History H/O: hysterectomy 07/09/2020- laparoscopic assisted vaginal hysterectomy, lysis of adhesions, cystoscopy performed by Dr. Mosley at [facility] Family History Grandfather Hyperlipidemia maternal Hypertension maternal Stroke maternal Grandmother Heart disease maternal Hyperlipidemia maternal Hypertension maternal Thyroid disease maternal Father Thyroid disease Denies family history of Anesthesia complication Bleeding disorder Social History Smoking and tobacco/nicotine status: never used tobacco/nicotine Alcohol intake: current Alcohol intake frequency: holidays/special occasions only Alcohol type: wine Substance/Drug Use: never Physical Exam Narrative: EXAM NARRATIVE: General: Alert, no acute distress. Skin: Warm, dry. Head: Normocephalic, atraumatic. Neck: Supple, trachea midline. Eye: Extraocular movements are intact. Ears, nose, mouth and throat: mucosa moist. Cardiovascular: Regular, Normal peripheral perfusion. Respiratory: Lungs are clear to auscultation, respirations are non-labored, breath sounds are equal, Symmetrical chest wall expansion. Gastrointestinal: Soft, moderate right lower quadrant tenderness to palpation, Non distended Musculoskeletal: Normal ROM, no deformity. Neurological: Alert and oriented, No focal neurological deficit observed. Psychiatric: Cooperative, appropriate mood & affect. Course Vital Signs: Vital signs: Vital Signs Temperature 98.4 F 11/21/24 17:29 Pulse Rate 88 11/21/24 19:30 Respiratory Rate 18 11/21/24 17:29 Blood Pressure 128/77 11/21/24 20:00 Pulse Oximetry 97 11/21/24 20:00 Oxygen Delivery Me thod Room Air 11/21/24 20:00 MDM - Abdominal Pain Medical Decision Making Medical decision making: Differential diagnosis for this patient with right lower quadrant abdominal pain including but not limited to and based on the above HPI, review of systems and physical exam: Ureterolithiasis. Urinary tract infection. Appendicitis. colitis. small bowel obstruction. Crohn's flare. Pancreatitis. Cholelithiasis or cholecystitis. Hepatitis. Diverticulitis. Constipation. ovarian cyst. ovarian torsion Workup: Orders were placed to evaluate differential diagnosis based on the above differential, HPI and exam: Lab Review: Laboratory results were reviewed and interpreted by myself the emergency room physician. No leukocytosis. No anemia. No renal failure. Mild elevation in her CRP. CT of the abdomen pelvis with contrast: Normal appendix. Right ovary seems to be big in an odd position on the CT scan. Ultrasound recommended. This was reviewed and interpreted by myself the emergency room physician. I also reviewed the radiology report. Ultrasound pelvic: Large boggy ovaries with some cyst but no torsion. Based on preliminary read. I reviewed the patient's medical record Reexamination: Patient remained stable. No increased work of breathing. No altered mental status. No focal motor deficits. Assessment and plan: Ovarian cyst Toradol, Zofran and fluids. - Discharged home - Discussed plan with patient. Answered any questions. - Evaluation and treatment of this problem were appropriate in the emergency setting. Lab Data 11/21/24 18:45 11/21/24 18:45 Labs/Radiology: Radiology Impressions Abdomen/Pelvis CT 11/21/24 18:35 IMPRESSION: The right ovary is situated in the midline. There is slightly diminished venous return from the right ovary is compared to the left which could reflect features of partial or intermittent ovarian torsion. Pelvic ultrasound with Doppler recommended for further evaluation. ADDENDUM: 11/21/242002 THIS REPORT CONTAINS FINDINGS THAT MAY BE CRITICAL TO PATIENT CARE. The findings were verbally communicated via telephone conference with MARITZA TURNER at 8:02 PM CDT on 11/21/2024. The findings were acknowledged and understood. Laboratory Results WBC 9.23 10^3/uL (3.29-11.43) 11/21/24 18:45 RBC 4.76 10^6/uL (3.85-5.65) 11/21/24 18:45 Hgb 13.60 g/dL (11.27-16.99) 11/21/24 18:45 Hct 41.0 % (36-47) 11/21/24 18:45 MCV 86.1 fl (85-98) 11/21/24 18:45 MCH 28.6 pg (27-33) 11/21/24 18:45 MCHC 33.2 g/dL (30-55) 11/21/24 18:45 RDW 13.2 % (12.1-15.1) 11/21/24 18:45 Plt Count 312 10^3/cmm (157-399) 11/21/24 18:45 MPV 10.3 fL (7.4-10.4) 11/21/24 18:45 Neut % (Auto) 62.8 % 11/21/24 18:45 Lymph % (Auto) 29.5 % 11/21/24 18:45 [place] % (Auto) 5.9 % 11/21/24 18:45 Eos % (Auto) 1.0 % 11/21/24 18:45 Baso % (Auto) 0.5 % 11/21/24 18:45 Neut # (Auto) 5.80 10^3/uL (1.8-7.7) 11/21/24 18:45 Lymph # (Auto) 2.7 10^3/uL (0.8-4.8) 11/21/24 18:45 [place] # (Auto) 0.5 10^3/uL (0.2-0.9) 11/21/24 18:45 Eos # (Auto) 0.1 10^3/uL (0.0-0.8) 11/21/24 18:45 Baso # (Auto) 0.1 10^3/uL (0.0-0.1) 11/21/24 18:45 Nucleated RBC % (auto) 0 % 11/21/24 18:45 Nucleated RBCs # 0.0 /100WBC 11/21/24 18:45 Sodium 136 mmol/L (136-145) 11/21/24 18:45 Potassium 3.8 mmol/L (3.5-5.1) 11/21/24 18:45 Chloride 98 mmol/L (98-107) 11/21/24 18:45 Carbon Dioxide 23 mmol/L (22-29) 11/21/24 18:45 Anion Gap 18.8 (5-19) 11/21/24 18:45 BUN 6 mg/dL (6-20) 11/21/24 18:45 Creatinine 0.6 mg/dL (0.5-0.9) 11/21/24 18:45 GFR Calculation 111.9 mL/min (90-130) 11/21/24 18:45 Glucose 135 mg/dL (65-115) H 11/21/24 18:45 Calculated Osmolality 282 mOsm/kg (285-295) L 11/21/24 18:45 Lactic Acid 1.3 mmol/L (0.5-2.2) 11/21/24 18:45 Calcium 9.6 mg/dL (8.5-10.5) 11/21/24 18:45 Total Bilirubin 0.4 mg/dL (0.15-1.2) 11/21/24 18:45 AST 15 U/L (0-32) 11/21/24 18:45 ALT 19 U/L (0-33) 11/21/24 18:45 Alkaline Phosphatase 76 U/L (35-105) 11/21/24 18:45 C-Reactive Protein 19.0 mg/L (0.0-4.9) H 11/21/24 18:45 Total Protein 7.3 g/dL (6.6-8.7) 11/21/24 18:45 Albumin 4.0 g/dL (3.5-5.2) 11/21/24 18:45 Globulin 3.3 g/dL (1.3-4.6) 11/21/24 18:45 Urine Color Yellow (Yellow) 11/21/24 18:00 Urine Appearance Clear (CLEAR) 11/21/24 18:00 Urine pH 5.0 (5-7) 11/21/24 18:00 Ur Specific [place] 1.012 (1.005-1.030) 11/21/24 18:00 Urine Protein Negative (Negative) 11/21/24 18:00 Urine Glucose (UA) Negative (Normal) 11/21/24 18:00 Urine Ketones Trace (Negative) 11/21/24 18:00 Urine Blood Negative (Negative) 11/21/24 18:00 Urine Nitrate Negative (Negative) 11/21/24 18:00 Urine Bilirubin Negative (Negative) 11/21/24 18:00 Urine Urobilinogen 0.2 mg/dL (Negative) 11/21/24 18:00 Ur Leukocyte Esterase Trace (Negative) A 11/21/24 18:00 Urine RBC 0-2 /hpf (0-2) 11/21/24 18:00 Urine WBC 0-5 /hpf (0-5) 11/21/24 18:00 Ur Squamous Epith Cells 0-5 /hpf (0-5) 11/21/24 18:00 Amorphous Sediment Not Reportable 11/21/24 18:00 Urine Bacteria None seen /hpf (NONE) 11/21/24 18:00 Hyaline Casts 0.81 /lpf 11/21/24 18:00 XR interpretation done by ED provider, pending radiology final review Discharge Plan Discharge Patient Disposition: Home Clinical Impression: Ovarian cyst Condition: Stable Prescriptions: No Action simvastatin 20 mg tablet 20 mg PO montelukast 10 mg tablet 10 mg PO lisinopril 2.5 mg tablet 2.5 mg PO valacyclovir 1 gram tablet 1,000 mg PO TID 7 Days Qty: 21 0RF Trulicity 4.5 mg/0.5 mL pen injector 4.5 mg SUBCUT Q7D Qty: 6 1RF Discharge Orders: Discharge ED (Routine); Ordered 11/21/24 Ordered By: Maritza Turner Referrals: Rosalina Tuttle, TRACER BULLET CHARGING MACHINE OPERATOR [Primary Care Provider, Nurse Practitioner] Discharge Diet: Usual diet Discharge Activity: Increase activity as tolerated Patient Instructions: Opioid Safety, Pain Management, Patient Portal & Yovanny Instructions Activity Restrictions/Additional Instructions: If you have worsening pain, fevers, or other concerns please return to the emergency room or follow-up urgently with your primary provider. 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 You have been screened and evaluated and felt safe for discharge. Health conditions do change or evolve sometimes and as such it is important that you follow up with your Primary Doctor to be re checked, 3-5 days is a general good time frame for follow up. You are always welcome to return to the ED for re assessment if your symptoms are worsening or you have new concerns Print Language: Ukrainian Coding Level of Care Code ED Clinical Data Specialist for Tyron Smith
[2024-11-21 18:50] LABS: Glucose Urine UA Negative (Normal); Nitrate Urine Negative (Negative); Specific Gravity, Urine 1.012 (1.005-1.030)
[2024-11-21 18:58] VITALS: BP 127/100; PULSE 86; O2SAT 97
[2024-11-21 19:08] LABS: Hematocrit 41.0 % (36-47); Hemoglobin 13.60 g/dL (11.27-16.99); Mean Corpuscular HGB Conc 33.2 g/dL (30-55); Mean Corpuscular Hemoglobin 28.6 pg (27-33); Mean Corpuscular Volume 86.1 fl (85-98); Nucleated Red Blood Cells % 0 %; Platelet Count 312 10^3/cmm (157-399); Red Blood Count 4.76 10^6/uL (3.85-5.65); White Blood Count 9.23 10^3/uL (3.29-11.43)
[2024-11-21] MEDS: iohexol 350 mg/mL 500 mL Btl (per mL) IV (19:10)
[2024-11-21 19:19] LABS: Alanine Aminotransferase 19 U/L (0-33); Albumin Level 4.0 g/dL (3.5-5.2); Alkaline Phosphatase 76 U/L (35-105); Anion Gap 18.8 (5-19); Aspartate Amino Transferase 15 U/L (0-32); Blood Urea Nitrogen 6 mg/dL (6-20); Calcium 9.6 mg/dL (8.5-10.5); Carbon Dioxide 23 mmol/L (22-29); Chloride 98 mmol/L (98-107); Creatinine Clr Calc Pharmacy 127.3294; Globulin 3.3 g/dL (1.3-4.6); Glucose 135 mg/dL (65-115); Osmolality Calculated 282 mOsm/kg (285-295); Potassium 3.8 mmol/L (3.5-5.1); Sodium 136 mmol/L (136-145); Total Protein 7.3 g/dL (6.6-8.7)
[2024-11-21] MEDS: ondansetron 2 mg/ML SDV 2 mL 8 MG IVP (19:19)
[2024-11-21 19:20] LABS: Lactic Sepsis W/Reflex 1.3 mmol/L (0.5-2.2)
[2024-11-21 19:30] VITALS: BP 127/82; PULSE 88; O2SAT 96
[2024-11-21 20:00] VITALS: BP 128/77; O2SAT 97
--- NOTE | 2024-11-21 20:01 | USR_ITS ---
PROCEDURE INFORMATION: Exam: US Pelvis, Complete, Non-Obstetric Exam date and time: 11/21/2024 8:18 PM Age: 39 years old Clinical indication: Other: F/u CT today reporting high right ovarian location with a 2.9cm cyst, and a 3.4 cm left ovarian cyst. Prior surgery; Surgery date: 6+ months; Surgery type: Hysterectomy 2020 leaving both ovaries; Additional info: Abnormal right ovary TECHNIQUE: Imaging protocol: Transabdominal pelvic nonobstetric ultrasound. Complete exam. Real time ultrasound with image documentation. COMPARISON: CT abdomen pelvis w con* [id number] 11/21/2024 7:07 PM FINDINGS: Uterus: Uterus is normal. Endometrial stripe is normal. Right ovary/adnexa: Right ovary is enlarged measuring 5.1 x 3.8 x 3.9 cm for a volume of 40 cc. Right ovary contains a dominant follicle measuring 3.4 cm maximal diameter. Arterial blood flow is confirmed in the right ovary but venous blood flow is not demonstrated. Left ovary/adnexa: Left ovary is enlarged measuring 4.6 x 3.0 x 4.7 cm for a volume of 33 cc, containing a dominant follicle measuring 3.2 cm maximal diameter. Intraperitoneal space: No intraperitoneal fluid. Urinary bladder: Normal. US/US pelvic limited [id number] IMPRESSION: Both ovaries are enlarged by a unilocular simple cysts which are likely physiologic. Unfortunately, arterial blood flow is demonstrated in each ovary but venous blood flow was not recorded on either side. An enlarged ovary with diminished venous blood flow can be a sign ovarian torsion. If sonography services are still available, consider additional evaluation the venous flow in each ovary. Alternatively, consider EARRINGS FABRICATOR consultation.
[2024-11-21 21:10] VITALS: BP 128/77; PULSE 91; O2SAT 97
== END 2024-11-21 21:11 | disposition home or self-care (01) ==
PROVIDERS: Emergency Provider Emergency Medicine; PCP Nurse Practitioner Family
DX: N83.201 Unspecified ovarian cyst, right side (principal)
CPT/HCPCS: 36415; 74177; 76857; 80053; 81001; 83605; 85025; 86140; 96361; 96374; 96375; 99285; J1885; J2405; J7030

== ENCOUNTER 2024-12-11 11:28 | Outpatient (CLI) | payer OTHER, SELFPAY ==
[2024-12-11 13:17] LABS: Alanine Aminotransferase 23 U/L (0-33); Albumin Level 4.1 g/dL (3.5-5.2); Alkaline Phosphatase 86 U/L (35-105); Anion Gap 15.2 (5-19); Aspartate Amino Transferase 20 U/L (0-32); Blood Urea Nitrogen 5 mg/dL (6-20); Calcium 9.5 mg/dL (8.5-10.5); Carbon Dioxide 27 mmol/L (22-29); Chloride 101 mmol/L (98-107); Cholesterol 213 mg/dL (0-200); Free T4 Free Thyroxine 1.03 ng/dL (0.82-1.77); Globulin 3.5 g/dL (1.3-4.6); Glucose 142 mg/dL (65-115); HDL Cholesterol 48 mg/dL (60-100); Osmolality Calculated 288 mOsm/kg (285-295); Potassium 4.2 mmol/L (3.5-5.1); Sodium 139 mmol/L (136-145); Thyroid Stimulating Hormone 1.93 uIU/mL (0.27-4.20); Total Protein 7.6 g/dL (6.6-8.7); Triglycerides 98 mg/dL (0-150)
[2024-12-11 13:36] LABS: Creatinine Urine, Random 218 mg/dL (28-217); Microalbum Creatinine Ratio Ur 9 mg/dL (0-20)
[2024-12-11 13:50] LABS: Estmated Average Glucose 197; Hemoglobin A1C 8.5 % (4.0-6.0)
== END 2024-12-11 11:29 | disposition home or self-care (01) ==
PROVIDERS: PCP Nurse Practitioner Family; Visit Provider Internal Medicine
DX: E11.9 Type 2 diabetes mellitus without complications (principal); E06.3 Autoimmune thyroiditis
CPT/HCPCS: 36415; 80053; 80061; 82044; 83036; 84439; 84443

== ENCOUNTER 2024-12-14 10:31 | Outpatient (CLI) | payer OTHER, SELFPAY ==
--- NOTE | 2024-12-14 11:00 | MR_ITS ---
WS: [id number] MRI LEFT SHOULDER NONCONTRAST TECHNIQUE: Sagittal T2, coronal T1, T2 and proton density imaging. Axial gradient PDE imaging. CLINICAL INFORMATION: impingement of left shoulder COMPARISON: None. FINDINGS: Moderate arthritis AC joint. Moderate downsloping acromion. Marked narrowing of the subacromial space with impingement on the rotator cuff. Chronic thinning of the supraspinatus and infraspinatus with acromial impingement. No high-grade tears. Trace subacromial fluid. Normal teres minor. Normal subscapularis tendon. Transverse humeral ligament appears intact. Biceps tendon appears intact within the bicipital groove. Intra-articular biceps tendon appears intact. Normal biceps labral anchor. Normal bone marrow signal in the humerus and glenoid. MR/MR shoulder LT wo con* [id number] IMPRESSION: 1. Marked narrowing of the subacromial space with impingement on the rotator c uff. 2. Chronic thinning of the supraspinatus and infraspinatus. No high-grade tear s. 3. Normal teres minor and subscapularis. 4. Biceps tendon is somewhat diminutive but appears intact within the bicipita l groove. 5. No other acute findings.
== END 2024-12-14 10:32 | disposition home or self-care (01) ==
PROVIDERS: PCP Nurse Practitioner Family; Visit Provider Physician Assistant
DX: M75.42 Impingement syndrome of left shoulder (principal)
CPT/HCPCS: 73221

== ENCOUNTER 2025-02-07 07:52 | Day surgery (SDC) | payer OTHER, SELFPAY ==
[2025-02-07] VITALS (14 sets, daily range): BP systolic 122–145; BP diastolic 72–97; PULSE 79–92; RESP 13–21; TEMP 36.4–36.8; O2SAT 92–99; BMI 33.8
--- NOTE | 2025-02-07 08:51 | W.PM.OPSUD ---
Surgery/Procedure H&P Update DATE OF PROCEDURE: February 07, 2025 DATE H&P PERFORMED: 01/08/25 H&P UPDATE INFORMATION: I have reviewed H&P completed within last 30 days, I have examined patient prior to procedure and No changes to prior documentation PREOP DIAGNOSIS: Left shoulder AC joint arthritis, subacromial impingement syndrome PRIMARY INDICATION FOR PROCEDURE: Left shoulder AC joint arthritis, subacromial impingement syndrome PLANNED PROCEDURE: Operation Date: 02/07/25 10:20 Proposed Procedures p Shoulder Arthroscopy(Left) - DO jack Bonilla LEFT Subacromial Decompression(Left) - DO jack Bonilla LEFT Acromioclavicular (AC) Joint Resection(Left) - Devin Garcia DO
[2025-02-07] MEDS: acetaminophen 1,000 MG/100 ML PIGGYBACK 400 MG IV (08:57)
--- NOTE | 2025-02-07 09:12 | P.ANESASSM_ITS ---
Pre-Anesthetic Assessment Height/Weight: Height 5 ft 2 in Weight 185 lb Temp Pulse Resp BP Pulse Ox O2 Del Method 97.7 F 92 16 134/83 97 Room Air 02/07/25 08:20 02/07/25 08:20 02/07/25 08:20 02/07/25 08:20 02/07/25 08:20 02/07/25 08:30 Preop Diagnosis: Left shoulder AC joint arthritis, subacromial impingement syndrome Operation Date: 02/07/25 10:20 Proposed Procedures p Shoulder Arthroscopy(Left) - Devin Jose, DO s LEFT Subacromial Decompression(Left) - Devin Jose, DO s LEFT Acromioclavicular (AC) Joint Resection(Left) - Devin [place], DO Was Beta Keven taken within 24 hours: N/A Was Clonidine taken within 24 hours: N/A Last intake: Intake Last Liquid Date 02/06/25 Last Liquid Time 21:00 Last Solid Date 02/06/25 Last Solid Time 21:00 Social No alcohol and No tobacco Exam alert, oriented x 3, clear to auscultation bilaterally and regular rate & rhythm Airway Submandibular: within normal limits Cervical ROM: within normal limits Mallampati: Class III Dentition: full Anesthetic Plan ASA status: 3 Anesthesia: General and Regional (specify below) Other: No prior issues with anesthesia NPO since yesterday evening History of hypertension on lisinopril Patient takes dulaglutide, last taken 01/28/2025. Preop BS 237. 5 units insulin given and will recheck BMP from 12/11/2024 reviewed acceptable for procedure Plan for general anesthesia with preop block Medications/Allergies Home Medications ?Medication ?Instructions ?Recorded ?Confirmed ?Last Taken ?Type lisinopril 2.5 mg tablet 2.5 mg PO DAILY 11/23/2306/0202/06/25 History montelukast 10 mg tablet 10 mg PO DAILY 11/23/2306/0202/06/25 History (Singulair) dulaglutide 4.5 mg/0.5 mL See Rx Instructions .Route 0 12/17/24 02/06/25 01/28/25 Rx subcutaneous pen injector .COMPLEX #12 mL (Trulicity) atorvastatin 40 mg tablet (Lipitor) 40 mg PO DAILY #90 tabs 12/28/24 02/06/25 02/06/25 Rx topiramate 25 mg sprinkle capsule 25 mg PO DAILY 02/0602/07/25 Unknown History (Topamax) venlafaxine 75 mg tablet,extended 75 mg PO BEDTIME 07/0302/07/25 02/07/25 History release 24 hr Allergies Allergy/AdvReac Type Severity Reaction Status Date / Time No Known Allergies Allergy Verified 01/08/25 10:04 Current Medications Generic Name Dose Route Start Last Admin Trade Name Miladis PRN Reason Stop Dose Admin Sodium Chloride 1,000 mls @ 30 mls/hr 02/07/25 08:30 02/07/25 09:02 Sodium Chloride 0.9% IV 02/08/25 08:29 30 mls/hr .Q24H ALISHA Administration PFSH Anesthesia Medical History (Updated 01/12/25 @ 22:07 by Devin Garcia DO) Cysts of both ovaries Surgical History H/O: hysterectomy 07/09/2020- laparoscopic assisted vaginal hysterectomy, lysis of adhesions, cystoscopy performed by Dr. Mosley at [facility] Family History Grandfather Hyperlipidemia maternal Hypertension maternal Stroke maternal Grandmother Heart disease maternal Hyperlipidemia maternal Hypertension maternal Thyroid disease maternal Stroke Diabetes Father Thyroid disease Diabetes Mother Hypertension Hyperlipidemia Brother Diabetes Denies family history of Anesthesia complication Bleeding disorder Social History Smoking and tobacco/nicotine status: never used tobacco/nicotine Alcohol intake: current Alcohol intake frequency: holidays/special occasions only Alcohol type: wine Substance/Drug Use: never
[2025-02-07] MEDS: insulin regular-human 100 units/1 mL 5 UNIT IVP (09:23)
--- NOTE | 2025-02-07 09:40 | ANES.PROC ---
Anesthesia Procedures Procedure/Date: 02/07/25 Nerve Block ^: Nerve Block 1: Main Anesthesia: other (100 mcg fentanyl and 2 mg Versed) Time Out Performed: Yes Consent: requested by attending/covering physician and from patient Laterality: Left Nerve block location: interscalene Anesthesia monitors applied: pulse oximetry, EKG, BP cuff and oxygen Nerve block position: supine Anesthetic Used: ropivicaine 0.5% Amount of anesthesia used (mL): 30 Ultrasound used to: recognize landmarks Nerve Stimulator Used?: Yes Interscalene/Femoral BLK: other needle (pjunk 4inch) Injection: neg aspiration of heme Patient Tolerated Procedure: well Complications: none Additional Comments: Decadron 4 mg added to block
[2025-02-07] MEDS: ceFAZolin 2,000 MG in sodium chloride 0.9% (plus) 50 ML 100 MG IV (09:47)
--- NOTE | 2025-02-07 09:49 | SUR.PREOP ---
09:30 LEFT INTERSCALENE NERVE BLOCK PERFORMED BY DOCTOR GU, USING 30ML OF 0.5% ROPIVACAINE AND 4MG OF DECADRON. PT ON TONGUE LINING STITCHER AND O2 AT 2L/M VIA NASAL CANNULA. PT TOLERATED PROCEDURE WELL.
--- NOTE | 2025-02-07 11:05 | P.BOP_ITS ---
Date of Procedure: 02/07/2025 Surgeon: Devin Garcia DO Public Relations Consultant(s): Peter Garcia PA-C Procedure(s) performed: Left shoulder diagnostic and surgical arthroscopy with rotator cuff debridement Left shoulder diagnostic and surgical arthroscopy with subacromial decompression (acromioplasty and bursectomy) Left shoulder diagnostic and surgical arthroscopy with AC joint resection (distal clavicle excision) Findings of the procedure(s): Patient underwent procedure as planned no issues or complications had a small 5% undersurface tearing of the rotator cuff intra- articularly underwent debridement and subsequently underwent subacromial decompression AC joint resection the rotator cuff otherwise was completely intact as well as bicep tendon and labrum. Toller procedure well without issues or complications taken recovery stable condition peer Estimated blood loss: 10 mL Specimen(s) removed: None Post-operative diagnosis: Left shoulder partial rotator cuff tear, AC joint arthritis, subacromial impingement syndrome
--- NOTE | 2025-02-07 11:07 | P.OP_ITS ---
Operative Report Date of procedure: February 07, 2025 Surgeon: Devin Garcia DO Foundation Drill Operator: Peter Garcia PA-C: PA was necessary for assistance in this case with shoulder positioning to execute the procedure, assistance with instrumentation, as well as implant fixation when necessary, assist with wound closure and dressing application. Procedure: Preoperative diagnosis: Left shoulder AC joint arthritis, subacromial impingement syndrome Post-op diagnosis:? Left shoulder partial rotator cuff tear, AC joint arthritis, subacromial impingement syndrome Procedure done: Left shoulder diagnostic and surgical arthroscopy with rotator cuff debridement Left shoulder diagnostic and surgical arthroscopy with subacromial decompression (acromioplasty and bursectomy) Left shoulder diagnostic and surgical arthroscopy with AC joint resection (distal clavicle excision) Surgeon: Devin Garcia DO Estimated blood loss: [10]mL IV fluids: See anesthesia record Implants: None Complications: None Condition: stable Disposition: same day Brief History: Patient been seen and worked up in the outpatient setting for Left?shoulder?pain.? Pt had an MRI which showed findings below.? Patient's failed conservative treatment and has weakness.? We talked about treatment options far as nonoperative and operative intervention..? We talked about risk benefits complication alternatives surgical nonsurgical treatment options.? Understanding risk of surgery pt agrees to proceed with surgical intervention.? All questions have been answered at this time.? Patient elects proceed with surgery and consent obtained in preoperative holding area for left shoulder diagnostic and surgical arthroscopy with subacromial decompression and acromioclavicular joint resection. MR/MR shoulder LT wo con* [id number] IMPRESSION: 1. Marked narrowing of the subacromial space with impingement on the rotator cuff. 2. Chronic thinning of the supraspinatus and infraspinatus. No high-grade tears. 3. Normal teres minor and subscapularis. 4. Biceps tendon is somewhat diminutive but appears intact within the bicipital groove. 5. No other acute findings. Procedure: Patient seen evaluated in the preoperative holding area.? Consent reviewed and signed with patient.? Once again reviewed patient's MRI results as well as? planned surgical intervention.? Correct extremity marked.? Patient seen evaluated by anesthesia department received regional anesthesia.? Once ready for surgery was taken back to the operative suite.? Patient then subsequently underwent anesthesia per the anesthesia department was transported onto the OR table.? Patient was then placed into a lateral decubitus position with a beanbag and was appropriately secured to the bed.? All bony prominences well-padded.? Patient then had the Left upper extremity was then prepped and draped in standard orthopedic fashion.? Patient received appropriate preoperative antibiotics.? Final timeout performed. The Left upper extremity was then held in hanging from traction utilizing sterile technique.? Next started with standard diagnostic and surgical?arthroscopy with posterior portal position introduced?arthroscope into the glenohumeral joint.? Visualized the glenohumeral joint I then introduced a spinal needle within the rotator cuff interval to confirm appropriate anterior portal placement.? Once this was confirmed I then made my small incision and then introduced my?arthroscopic shaver into the glenohumeral joint.? After thorough debridement was evident patient had intact bicep tendons no evidence of superior labral tearing and no unstable biceps anchor as a result the bicep tendon was left alone. Next I evaluated the subscapularis tendon which was intact and no evidence of tear. No evidence of labral tear.? ?This point time I then visualized the glenohumeral joint.? The glenohumeral joint was found to have grade 1? chondromalacia throughout.? Axillary pouch was free of loose bodies from viewing the posterior portal.? Next a visualized the rotator cuff superiorly and there was found to be a small undersurface tearing of the supraspinatus tendon. This was only roughly 5 to 10% of the thickness of the rotator cuff and the patient underwent a gentle rotator cuff debridement with arthroscopic shaver.? ?This completed my work within the glenohumeral joint all fluid was suctioned free of the joint.? ?Next I reintroduced the?arthroscope posteriorly.? And went to the subacromial space.? I established my lateral working portal at the site and Thermal wand was then introduced laterally and then I subsequently performed extensive bursectomy of the subacromial space.? Patient had a large anterior bone spur.? At this point time I proceeded with my AC joint resection thermal wand was used and track to the anterior edge of the acromion and then tracked all the way to the AC joint.? Once identified the AC joint this was very arthritic in nature.? Thermal wand was placed anteriorly to establish appropriate plane for AC joint resection.? Once appropriate margins and anterior inferior and anterior capsule was released I then introduced?arthroscopic shaver and a bur and performed AC joint resection of both the acromion to cope plane at the AC joint and a distal clavicle resection was then performed totaling 1 cm in size and was confirmed.? This completed my AC joint resection and I then introduced the?arthroscopic shaver laterally while continuing to view posteriorly.? I then performed an acromioplasty to complete my subacromial decompression prior to evaluating rotator cuff. After complete subacromial decompression AC resection I then evaluated the rotator cuff. Patient's rotator cuff was intact with no evidence of tear from the bursal side. This point in time this completed my visualization posteriorly. Next I then introduced the?arthroscopic shaver posteriorly to complete my subacromial decompression appropriate coplane all the way up to the lateral edge of the acromion.? This completed the surgery.? All fluid was suctioned from the?shoulder.? All instruments were removed.? The lateral incision was then closed with nylon stitches.? As well as the portal sites closed with portal nylon stitches.? Xeroform 4 x 4's ABD and tape was then applied to the Left?shoulder?and was placed into a?shoulder sling.? Patient was then awakened from anesthesia and then taken back to PACU in stable condition.? Patient tolerated procedure without any issues. Disposition: Patient taken back in stable condition recovering well.? Dressings on in place clean dry and intact.? Will be nonweightbearing to the Left upper extremity.? Maintain sling.? Patient to follow-up with me in the office in 2 weeks.? Patient will receive appropriate discharge instruction as well as pain medication postoperatively.? All questions answered.? We will contact the office for any questions or concerns.
--- NOTE | 2025-02-07 11:25 | PM.PACU ---
PACU note Narrative: Patient is a 39-year-old female who just underwent a left shoulder diagnostic and surgical arthroscopy. Patient transferred to PACU in stable condition. Pain is well controlled. shoulder Dressing on , dry and in place. Patient's operative arm is in a shoulder sling. Patient is awake and alert and able to respond to my questions accordingly. Patient's fingers are warm with good perfusion. Normal cap refill under 2 seconds. Radial pulse 2+ unable to assess further range of motion in arm due to sling. Unable to further assess sensation or motor due to residual block Exam: awake Disposition: discharged
--- NOTE | 2025-02-07 13:15 | ANE.PACU2 ---
Inpatient post-anesthesia follow up: Airway intact: Yes Vital signs: Temperature 98.0 F Pulse Rate 82 Respiratory Rate 14 Blood Pressure 144/86 Pulse Oximetry 96 Oxygen Delivery Me thod Room Air Oxygen Flow Rate 2 Fraction of Inspir ed Oxygen Hydration adequate: Yes Nausea and vomiting: No Pain level: 1 Mental status: Baseline
== END 2025-02-07 13:15 | disposition home or self-care (01) ==
PROVIDERS: PCP Nurse Practitioner Family; Visit Provider Student in an Organized Health Care Education/Training Program
PROC: (CPT 29805; principal; 2025-02-07 10:20)
PROC: (CPT 29826; 2025-02-07 10:20)
PROC: (CPT 29824; 2025-02-07 10:20)
DX: M75.112 Incomplete rotator cuff tear or rupture of left shoulder, not specified as traumatic (principal); M19.012 Primary osteoarthritis, left shoulder; M75.42 Impingement syndrome of left shoulder; I10 Essential (primary) hypertension
CPT/HCPCS: 29827; 29826; 29824; 36416; 82962; J0131; J0690; J1100; J1815; J1885; J2405; J2704; J2710; J3010; J3490; J7030; J9999

== ENCOUNTER 2025-02-25 10:59 | Emergency (ER) | payer OTHER, SELFPAY ==
[2025-02-25 11:02] VITALS: BP 157/93; PULSE 95; RESP 16; TEMP 36.7; O2SAT 100; BMI 33.6
[2025-02-25 11:49] LABS: Hematocrit 40.5 % (36-47); Hemoglobin 13.60 g/dL (11.27-16.99); Mean Corpuscular HGB Conc 33.6 g/dL (30-55); Mean Corpuscular Hemoglobin 28.5 pg (27-33); Mean Corpuscular Volume 84.9 fl (85-98); Nucleated Red Blood Cells % 0 %; Platelet Count 329 10^3/cmm (157-399); Red Blood Count 4.77 10^6/uL (3.85-5.65); White Blood Count 7.04 10^3/uL (3.29-11.43)
[2025-02-25 12:04] VITALS: BP 129/89; PULSE 92; RESP 14; O2SAT 97
[2025-02-25 12:04] LABS: Alanine Aminotransferase 30 U/L (0-33); Albumin Level 4.3 g/dL (3.5-5.2); Alkaline Phosphatase 92 U/L (35-105); Anion Gap 18.0 (5-19); Aspartate Amino Transferase 29 U/L (0-32); Blood Urea Nitrogen 6 mg/dL (6-20); Calcium 9.6 mg/dL (8.5-10.5); Carbon Dioxide 23 mmol/L (22-29); Chloride 96 mmol/L (98-107); Creatinine Clr Calc Pharmacy 152.7953; Globulin 3.1 g/dL (1.3-4.6); Glucose 192 mg/dL (65-115); HCG, Serum Qual Negative (Negative); Lipase 31 U/L (13-60); Osmolality Calculated 279 mOsm/kg (285-295); Potassium 4.0 mmol/L (3.5-5.1); Sodium 133 mmol/L (136-145); Total Protein 7.4 g/dL (6.6-8.7)
--- NOTE | 2025-02-25 12:08 | USR_ITS ---
PROCEDURE INFORMATION: Exam: US Abdomen; Limited Exam date and time: 02/25/2025 1:06 PM Age: 39 years old Clinical indication: Abdominal pain; Localized; Right upper quadrant (ruq); Additional info: Ruq pain, n/v TECHNIQUE: Imaging protocol: Real time ultrasound of the abdomen with image documentation. Limited exam focused on the region of clinical interest. COMPARISON: US pelvic limited [id number] 11/21/2024 8:18 PM FINDINGS: Liver: The liver is of normal echotexture. Gallbladder: The gallbladder is normal in appearance. There is no shadowing stone or wall thickening. There is no pericholecystic fluid. Biliary ducts: Common bile duct is within normal limits at 4 mm. Pancreas: The visualized aspects of the pancreas are normal. Right kidney: The right kidney measures 11 cm. There is no hydronephrosis or shadowing stone. Aorta: The aorta measures 1.8 cm. Inferior vena cava: The proximal IVC is normal in appearance. Portal venous: The portal vein demonstrates normal hepatopetal flow. It measures 8 mm in diameter. US/US gall bladder [id number] IMPRESSION: No acute process.
--- NOTE | 2025-02-25 12:12 | W.ED.ABDPA2 ---
HPI - Abdominal Pain General: Chief Complaint: Abdominal Pain Stated Complaint: abd pain, n/v/d Time Seen by Provider: 02/25/25 11:05 Source: patient Mode of arrival: ambulatory Limitations: no limitations History of Present Illness: Patient is a 39-year-old female who presents the emergency department complaining of right upper quadrant pain beginning last night around 2029. States that this occurred after eating cereal. Went to bed in pain, pain persisted throughout the night but worsened this morning when she tried to eat again, she had eggs and tomatoes. Also notes that last night with the initial onset of pain she had nausea that has persisted, and 1 episode of vomiting. She states that the pain to the right upper quadrant radiates to the epigastric region and around her right side. She has no urinary symptoms or changes in bowel habits. No fevers or chills. Has not take any medications for the pain. Still has her gallbladder, no history of previous abdominal surgeries. Requesting something for nausea at this time, overall nontoxic-appearing and vital stable. MD elicited complaint: abdominal pain Pertinent past history: none Onset (ago): hour(s) Pain Consistency: constant Location: RUQ Severity: severe Radiation: epigastric and R flank Exacerbating factors: eating Associated Symptoms: Reports nausea and vomiting; Denies bloating, change in stool character, chills, constipation, diarrhea, dysuria, fever(s) and hematochezia Related Data Home Medications ?Medication ?Instructions ?Recorded ?Confirmed lisinopril 2.5 mg tablet 2.5 mg PO DAILY 11/23/23 02/06/25 montelukast 10 mg tablet 10 mg PO DAILY 11/23/23 02/06/25 (Singulair) topiramate 25 mg sprinkle capsule 25 mg PO DAILY 02/06/25 02/07/25 (Topamax) venlafaxine 75 mg tablet,extended 75 mg PO BEDTIME 02/07/25 02/07/25 release 24 hr Previous Rx's ?Medication ?Instructions ?Recorded dulaglutide 4.5 mg/0.5 mL See Rx Instructions .Route 12/17/24 subcutaneous pen injector .COMPLEX #12 mL (Trulicity) atorvastatin 40 mg tablet (Lipitor) 40 mg PO DAILY #90 tabs 12/28/24 hydrocodone 5 mg-acetaminophen 325 1 tab PO Q6H PRN pain 5 days #20 02/20/25 mg tablet tabs Allergies Allergy/AdvReac Type Severity Reaction Status Date / Time No Known Allergies Allergy Verified 02/20/25 15:12 Review of Systems General: Reports: 10 or more systems reviewed and unremarkable except in HPI and below Const: Denies: fever(s), chills, change in appetite, change in weight or diaphoresis ENMT: Denies: throat pain or hoarseness Card: Denies: chest pain, palpitations or lightheadedness Resp: Denies: dyspnea, productive cough or wheezing GI: Reports: abdominal pain, nausea and vomiting; Denies: diarrhea, constipation, bloating, change in stool character or hematochezia : Denies: flank pain, difficulty voiding, dysuria, urinary frequency or urinary urgency Musc: Denies: neck pain or back pain Skin/Breast: Denies: rash or new lesions Neuro: Denies: headache(s) or dizziness PFSH ED PFSH: Medical History Cysts of both ovaries Surgical History H/O: hysterectomy 07/09/2020- laparoscopic assisted vaginal hysterectomy, lysis of adhesions, cystoscopy performed by Dr. Mosley at [facility] Family History Grandfather Hyperlipidemia maternal Hypertension maternal Stroke maternal Grandmother Heart disease maternal Hyperlipidemia maternal Hypertension maternal Thyroid disease maternal Stroke Diabetes Father Thyroid disease Diabetes Mother Hypertension Hyperlipidemia Brother Diabetes Denies family history of Anesthesia complication Bleeding disorder Social History Smoking and tobacco/nicotine status: never used tobacco/nicotine Alcohol intake: current Alcohol intake frequency: holidays/special occasions only Alcohol type: wine Substance/Drug Use: never Physical Exam Const: COMMON NORMALS: no acute distress, patient oriented x3, healthy appearing, alert and well nourished GENERAL APPEARANCE: cooperative NUTRITIONAL APPEARANCE: obese ORIENTATION/CONSCIOUSNESS: Yes awake Neck/C-Spine: COMMON NORMALS: full ROM, supple and no meningeal signs Resp: COMMON NORMALS: normal respiratory effort, No retractions, No use of accessory muscles and clear to auscultation bilaterally AUSCULTATION: clear to auscultation bilaterally, no crackles, no rales, no rhonchi and no wheezes Cardio: COMMON NORMALS: regular rate, regular rhythm, No gallops present (Cardio), No clicks present (Cardio), No murmurs present (Cardio), No rub (Cardio) and Peripheral pulses 2+ throughout RATE: regular rate RHYTHM: regular rhythm PERIPHERAL PULSES: Peripheral pulses 2+ throughout GI: COMMON NORMALS: Normal to inspection, nondistended, normoactive bowel sounds present, Soft to palpation, No hepatosplenomegaly present and no masses AUSCULTATION: Yes normoactive bowel sounds PALPATION: Yes Soft to palpation, Yes Tenderness to palpation present (GI) Details: RUQ (Positive Waddell sign), No Guarding due to palpation present (GI), No Rigid due to palpation and Yes No hepatosplenomegaly present RECTAL EXAM: deferred : COMMON NORMALS: Yes no CVA tenderness BLADDER/KIDNEY EXAM: Yes no CVA tenderness Back/Pelvis: COMMON NORMALS: no CVA tenderness Extremity: COMMON NORMALS: normal to inspection and full ROM Neuro: COMMON NORMALS: patient oriented x3, moves all extremities, no focal motor deficits and no sensory deficits noted SENSORIUM/ORIENTATION: Yes alert MENINGEAL SIGNS: Yes no meningeal signs Psych: COMMON NORMALS: mental status grossly normal, cooperative and speech normal SPEECH: Yes normal speech Skin: COMMON NORMALS: no rashes or lesions noted GENERAL SKIN EXAM: no rashes or lesions noted Course Vital Signs: Vital signs: Vital Signs Temperature 98.1 F 02/25/25 11:02 Pulse Rate 89 02/25/25 16:05 Respiratory Rate 16 02/25/25 16:05 Blood Pressure 154/94 02/25/25 16:05 Pulse Oximetry 100 02/25/25 16:05 Oxygen Delivery Me thod Room Air 02/25/25 11:02 MDM - Abdominal Pain Medical Decision Making Patient presented for right upper quadrant pain that began last night, after eating cereal. Pain was constant throughout the night but worsened this morning after eating breakfast. No history gallbladder issues, no previous surgeries. Has only had 1 episode of vomiting and has felt nauseous. Did report to me later that she does have a history of GERD, this feels a little different. Lab work is all reassuring including normal CBC, CMP, lipase, and urinalysis. Ultrasound the gallbladder does not reveal any acute right upper quadrant process. Symptoms have persisted somewhat throughout the ED despite nausea medication and Toradol, a GI cocktail did not relieve her symptoms much. However I do not suspect any acute abdominal process, likely this is biliary colic and she is informed to follow-up with primary care with any persistence of symptoms and to return if her symptoms do worsen or she develops any fever. Patient agrees with this plan, stable for discharge home at this time. Lab Data 02/25/25 11:40 02/25/25 11:40 Labs/Radiology: Radiology Impressions Gallbladder Ultrasound 02/25/25 12:08 IMPRESSION: No acute process. Laboratory Results WBC 7.04 10^3/uL (3.29-11.43) 02/25/25 11:40 RBC 4.77 10^6/uL (3.85-5.65) 02/25/25 11:40 Hgb 13.60 g/dL (11.27-16.99) 02/25/25 11:40 Hct 40.5 % (36-47) 02/25/25 11:40 MCV 84.9 fl (85-98) L 02/25/25 11:40 MCH 28.5 pg (27-33) 02/25/25 11:40 MCHC 33.6 g/dL (30-55) 02/25/25 11:40 RDW 12.1 % (12.1-15.1) 02/25/25 11:40 Plt Count 329 10^3/cmm (157-399) 02/25/25 11:40 MPV 10.7 fL (7.4-10.4) H 02/25/25 11:40 Neut % (Auto) 59.3 % 02/25/25 11:40 Lymph % (Auto) 29.3 % 02/25/25 11:40 [place] % (Auto) 5.0 % 02/25/25 11:40 Eos % (Auto) 4.8 % 02/25/25 11:40 Baso % (Auto) 1.0 % 02/25/25 11:40 Neut # (Auto) 4.18 10^3/uL (1.8-7.7) 02/25/25 11:40 Lymph # (Auto) 2.1 10^3/uL (0.8-4.8) 02/25/25 11:40 [place] # (Auto) 0.4 10^3/uL (0.2-0.9) 02/25/25 11:40 Eos # (Auto) 0.3 10^3/uL (0.0-0.8) 02/25/25 11:40 Baso # (Auto) 0.1 10^3/uL (0.0-0.1) 02/25/25 11:40 Nucleated RBC % (auto) 0 % 02/25/25 11:40 Nucleated RBCs # 0.0 /100WBC 02/25/25 11:40 Sodium 133 mmol/L (136-145) L 02/25/25 11:40 Potassium 4.0 mmol/L (3.5-5.1) 02/25/25 11:40 Chloride 96 mmol/L (98-107) L 02/25/25 11:40 Carbon Dioxide 23 mmol/L (22-29) 02/25/25 11:40 Anion Gap 18.0 (5-19) 02/25/25 11:40 BUN 6 mg/dL (6-20) 02/25/25 11:40 Creatinine 0.5 mg/dL (0.5-0.9) 02/25/25 11:40 GFR Calculation 138.1 mL/min (90-130) H 02/25/25 11:40 Glucose 192 mg/dL (65-115) H 02/25/25 11:40 Calculated Osmolality 279 mOsm/kg (285-295) L 02/25/25 11:40 Calcium 9.6 mg/dL (8.5-10.5) 02/25/25 11:40 Total Bilirubin 0.3 mg/dL (0.15-1.2) 02/25/25 11:40 AST 29 U/L (0-32) 02/25/25 11:40 ALT 30 U/L (0-33) 02/25/25 11:40 Alkaline Phosphatase 92 U/L (35-105) 02/25/25 11:40 Total Protein 7.4 g/dL (6.6-8.7) 02/25/25 11:40 Albumin 4.3 g/dL (3.5-5.2) 02/25/25 11:40 Globulin 3.1 g/dL (1.3-4.6) 02/25/25 11:40 Lipase 31 U/L (13-60) 02/25/25 11:40 HCG, Qual Negative (Negative) 02/25/25 11:40 Urine Color Yellow (Yellow) 02/25/25 12:45 Urine Appearance Clear (CLEAR) 02/25/25 12:45 Urine pH 7.0 (5-7) 02/25/25 12:45 Ur Specific [place] 1.015 (1.005-1.030) 02/25/25 12:45 Urine Protein Negative (Negative) 02/25/25 12:45 Urine Glucose (UA) Negative (Normal) 02/25/25 12:45 Urine Ketones Negative (Negative) 02/25/25 12:45 Urine Blood Negative (Negative) 02/25/25 12:45 Urine Nitrate Negative (Negative) 02/25/25 12:45 Urine Bilirubin Negative (Negative) 02/25/25 12:45 Urine Urobilinogen 0.2 mg/dL (Negative) 02/25/25 12:45 Ur Leukocyte Esterase Negative (Negative) 02/25/25 12:45 Amorphous Sediment Not Reportable 02/25/25 12:45 All radiology interpretation(s) finalized by discharge Discharge Plan Discharge Patient Disposition: Home Clinical Impression: Biliary colic Condition: Stable Prescriptions: No Action montelukast [Singulair] 10 mg tablet 10 mg PO DAILY lisinopril 2.5 mg tablet 2.5 mg PO DAILY atorvastatin [Lipitor] 40 mg tablet 40 mg PO DAILY Qty: 90 0RF hydrocodone-acetaminophen 5-325 mg tablet 1 tab PO Q6H PRN (Reason: pain) 5 Days Qty: 20 0RF Trulicity 4.5 mg/0.5 mL pen injector See Rx Instructions .ROUTE .COMPLEX Qty: 12 1RF Dose Instruction: INJECT 4.5 MG SUB-Q EVERY 7 DAYS Rx Instructions: INJECT 4.5 MG SUB-Q EVERY 7 DAYS topiramate [Topamax] 25 mg capsule, sprinkle 25 mg PO DAILY venlafaxine 75 mg tablet extended release 24hr 75 mg PO BEDTIME Discharge Orders: Discharge ED (Routine); Ordered 02/25/25 Ordered By: Jesus Alberto Newberry Patient Instructions: Patient Portal & Yovanny Instructions Activity Restrictions/Additional Instructions: Biliary Colic Discharge Instructions You have been diagnosed with biliary colic, which means you experienced pain likely related to your gallbladder. Your ultrasound and lab tests did not show any concerning findings, so no immediate treatment is needed at this time. What to expect: - Biliary colic pain often comes and goes, usually lasting 1?5 hours, and may be triggered by eating fatty foods. - Most people do not develop complications, but some may have recurrent episodes. Return to the emergency department or contact your doctor immediately if you experience any of the following: - Persistent pain lasting more than 5 hours - Fever or chills - Yellowing of your skin or eyes (jaundice) - Severe nausea or vomiting that prevents you from keeping fluids down - New or worsening abdominal pain These symptoms may indicate a more serious problem, such as infection or blockage, and require prompt medical attention. Self-care and follow-up: - Eat a healthy, low-fat diet to help reduce symptoms. - Avoid large, fatty meals, which can trigger pain episodes. - Take pain medication as directed by your healthcare provider if needed. - Schedule a follow-up appointment with your primary care provider within 1?2 weeks to discuss your symptoms and next steps. Further evaluation, such as additional imaging or specialist referral, may be considered if symptoms persist or worsen. Additional information: - Most people with normal ultrasound and labs do not develop complications, but a small number may later develop gallstones or other biliary problems. Regular follow-up helps monitor for these issues. Print Language: Uzbek Coding Level of Care Code ED Skein Winding Operator for Tyron Smith
[2025-02-25] MEDS: ondansetron 2 mg/ML SDV 2 mL 4 MG IVP (12:17)
[2025-02-25 13:00] VITALS: BP 141/88; PULSE 92; RESP 15; O2SAT 99
[2025-02-25 13:17] LABS: Add Urine Microscopic? NO
[2025-02-25 13:20] LABS: Glucose Urine UA Negative (Normal); Nitrate Urine Negative (Negative); Specific Gravity, Urine 1.015 (1.005-1.030)
[2025-02-25 13:24] LABS: Charge for UA Resulting for Rev
[2025-02-25 14:00] VITALS: BP 127/81; PULSE 87; RESP 14; O2SAT 100
[2025-02-25] MEDS: lidocaine 2% viscous 15 ML, aluminum-mag hydrox-simethicon 30 ML, sucralfate oral liq 1 GM PO (15:13)
[2025-02-25 16:05] VITALS: BP 154/94; PULSE 89; RESP 16; O2SAT 100
== END 2025-02-25 16:07 | disposition home or self-care (01) ==
PROVIDERS: Emergency Provider Physician Assistant
DX: K80.50 Calculus of bile duct without cholangitis or cholecystitis without obstruction (principal); Z79.85 Long-term (current) use of injectable non-insulin antidiabetic drugs
CPT/HCPCS: 76705; 80053; 81003; 83690; 84703; 85025; 96374; 96375; 99285; J1885; J2405; J9999

== ENCOUNTER 2025-02-26 07:31 | Outpatient (RCR) | payer OTHER, SELFPAY | END 2025-03-08 23:59 | disposition home or self-care (01) | LOC: SPT 07:31 | PROVIDERS: Visit Provider Physician Assistant | DX: M19.012 Primary osteoarthritis, left shoulder (principal) | CPT/HCPCS: 97110; 97161 ==

== ENCOUNTER 2025-03-09 05:00 | Outpatient (RCR) | payer OTHER, SELFPAY | END 2025-04-07 23:59 | disposition home or self-care (01) | LOC: SPT 05:00 | PROVIDERS: PCP Nurse Practitioner Family; Visit Provider Physician Assistant | DX: M19.019 Primary osteoarthritis, unspecified shoulder (principal) | CPT/HCPCS: 97110 ==

== ENCOUNTER 2025-03-14 08:31 | Emergency (ER) | payer OTHER, SELFPAY ==
[2025-03-14 08:52] VITALS: BP 143/87; PULSE 89; RESP 18; TEMP 36.6; O2SAT 100
[2025-03-14 09:16] LABS: Hematocrit 41.5 % (36-47); Hemoglobin 13.60 g/dL (11.27-16.99); Mean Corpuscular HGB Conc 32.8 g/dL (30-55); Mean Corpuscular Hemoglobin 28.1 pg (27-33); Mean Corpuscular Volume 85.7 fl (85-98); Nucleated Red Blood Cells % 0 %; Platelet Count 338 10^3/cmm (157-399); Red Blood Count 4.84 10^6/uL (3.85-5.65); White Blood Count 8.24 10^3/uL (3.29-11.43)
[2025-03-14] MEDS: ondansetron 2 mg/ML SDV 2 mL 4 MG IVP (09:20)
[2025-03-14 09:23] VITALS: BP 130/82; PULSE 91; RESP 17; O2SAT 96
[2025-03-14] MEDS: lidocaine 2% viscous 15 ML, aluminum-mag hydrox-simethicon 30 ML, sucralfate oral liq 1 GM PO (09:23)
[2025-03-14 09:36] LABS: Alanine Aminotransferase 19 U/L (0-33); Albumin Level 4.3 g/dL (3.5-5.2); Alkaline Phosphatase 97 U/L (35-105); Anion Gap 16.0 (5-19); Aspartate Amino Transferase 22 U/L (0-32); Blood Urea Nitrogen 6 mg/dL (6-20); Calcium 9.3 mg/dL (8.5-10.5); Carbon Dioxide 23 mmol/L (22-29); Chloride 100 mmol/L (98-107); Creatinine Clr Calc Pharmacy 155.8538; Globulin 3.5 g/dL (1.3-4.6); Glucose 220 mg/dL (65-115); Osmolality Calculated 284 mOsm/kg (285-295); Potassium 4.0 mmol/L (3.5-5.1); Sodium 135 mmol/L (136-145); Total Protein 7.8 g/dL (6.6-8.7)
[2025-03-14 10:00] LABS: Lipase 38 U/L (13-60)
--- NOTE | 2025-03-14 10:32 | ED_ITS ---
HPI - Abdominal Pain 2 General: Chief Complaint: Abdominal Pain Stated Complaint: [place] feeling like something is trying to come up Time Seen by Provider: 03/14/25 08:33 History of Present Illness: 39-year-old female presenting with appro ximately 2-week history of intermittent epigastric discomfort with nausea and a burning sensation that goes from the epigastrium to the throat with a feeling like something is trying to come up, subjective difficulty swallowing, reportedly seen in the ER 2 weeks ago for the symptoms had a gallbladder ultrasound and labs and was diagnosed with biliary colic, no history of significant reflux symptoms, patient was prescribed pantoprazole which she has been taking without relief of symptoms, she denies any diarrhea, denies fever or weight loss, she does report a couple episodes of vomiting over the last 2 weeks but not consistently so, she does report her symptoms appear worse after eating. Related Data Home Medications ?Medication ?Instructions ?Recorded ?Confirmed lisinopril 2.5 mg tablet 2.5 mg PO QPM 11/23/2303/14 montelukast 10 mg tablet 10 mg PO QPM PRN allergies 0 11/23/23 03/14/25 (Singulair) venlafaxine 75 mg tablet,extended 75 mg PO BEDTIME 07/0303/14/25 release 24 hr atorvastatin 40 mg tablet (Lipitor) 40 mg PO QPM 03/1403/14/25 dulaglutide 4.5 mg/0.5 mL 4.5 mg SUBCUT Q7D 03/14/25 1 05/14/24 subcutaneous pen injector (Trulicity) omeprazole 40 mg capsule,delayed 40 mg PO DAILY PRN In digestion 03/14/25 03/14/25 release ondansetron 4 mg disintegrating 4 mg PO Q8H PRN Nausea And Vomiting 03/14/25 03/14/25 tablet Previous Rx's ?Medication ?Instructions ?Recorded hydrocodone 5 mg-acetaminophen 325 1 tab PO Q6H PRN pa in 5 days #20 02/20/25 mg tablet tabs sucralfate 100 mg/mL oral 1 g (10 mL) PO TID 4 weeks # 840 mL 03/14/25 suspension (Carafate) Allergies Allergy/AdvReac Type Severity Reaction Status Date / Time No Known Allergies Allergy Verified 02/20/25 15:12 PFSH ED 2 PFSH: Medical History Cysts of both ovaries Surgical History H/O: hysterectomy 07/09/2020- laparoscopic assisted vaginal hysterectomy, lysis of adhesions, cystoscopy performed by Dr. Mosley at [facility] Family History Grandfather Hyperlipidemia maternal Hypertension maternal Stroke maternal Grandmother Heart disease maternal Hyperlipidemia maternal Hypertension maternal Thyroid disease maternal Stroke Diabetes Father Thyroid disease Diabetes Mother Hypertension Hyperlipidemia Brother Diabetes Denies family history of Anesthesia complication Bleeding disorder Social History Smoking and tobacco/nicotine status: never used tobacco/nicotine Alcohol intake: current Alcohol intake frequency: holidays/special occasions only Alcohol type: wine Substance/Drug Use: never Physical Exam 2 Narrative: EXAM NARRATIVE: Gen: A&Ox4, no acute distress, nontoxic appearing HEENT: Normocephalic, atraumatic, no scleral icterus, external ears normal, moist mucous membranes Neck: Supple, full range of motion, no observable masses Lungs: No Respiratory distress, Lungs clear to auscultation bilaterally no rales, rhonchi, wheezing CV: Regular rate and rhythm, no murmur, no pitting edema to lower extremities bilaterally Abdomen: Soft, nondistended, nontender to palpation, no right upper quadrant tenderness or [place]addell sign MSK: No joint swelling, FROM all 4 extremities Skin: No rashes, petechiae, lesions. Normal color per patient. Neuro: Alert and oriented, no slurred speech, sensation and strength grossly intact all 4 extremities Psych: Appropriate for situation. Course 2 Vital Signs: Vital signs: Vital Signs Temperature 97.8 F 03/14/25 08:52 Pulse Rate 91 03/14/25 09:23 Respiratory Rate 17 03/14/25 09:23 Blood Pressure 130/82 03/14/25 09:23 Pulse Oximetry 96 03/14/25 09:23 Oxygen Delivery Me thod Room Air 03/14/25 09:23 MDM - Abdominal Pain Medical Decision Making 39-year-old female presenting with epigastric discomfort nausea burning sensation all consistent with possible gastritis/gastroesophageal reflux disease, symptoms persisting x 2 weeks not improved with PPI did have ultrasound and labs done 2 weeks ago that were generally unremarkable, symptoms do appear consistent with gastric/esophageal etiology and I have a low concern for surgical intra-abdominal pathology at this time, plan for initiate Carafate, labs to assess for any progression of kidney liver or pancreatic dysfunction compared to prior results, reassess for disposition but anticipate discharge to follow-up with gastroenterology for consideration of upper endoscopy. Patient does report she had an H. pylori test done by PCP that was negative recently Lab Data Labs showing no anemia or leukocytosis, normal electrolytes, normal kidney function, normal LFTs, negative lipase 03/14/25 08:48 03/14/25 08:48 Labs/Radiology: Laboratory Results WBC 8.24 10^3/uL (3.29-11.43) 03/14/25 08:48 RBC 4.84 10^6/uL (3.85-5.65) 03/14/25 08:48 Hgb 13.60 g/dL (11.27-16.99) 03/14/25 08:48 Hct 41.5 % (36-47) 03/14/25 08:48 MCV 85.7 fl (85-98) 03/14/25 08:48 MCH 28.1 pg (27-33) 03/14/25 08:48 MCHC 32.8 g/dL (30-55) 03/14/25 08:48 RDW 12.0 % (12.1-15.1) L 03/14/25 08:48 Plt Count 338 10^3/cmm (157-399) 03/14/25 08:48 MPV 10.5 fL (7.4-10.4) H 03/14/25 08:48 Neut % (Auto) 65.6 % 03/14/25 08:48 Lymph % (Auto) 24.2 % 03/14/25 08:48 [place] % (Auto) 5.6 % 03/14/25 08:48 Eos % (Auto) 3.5 % 03/14/25 08:48 Baso % (Auto) 0.5 % 03/14/25 08:48 Neut # (Auto) 5.41 10^3/uL (1.8-7.7) 03/14/25 08:48 Lymph # (Auto) 2.0 10^3/uL (0.8-4.8) 03/14/25 08:48 [place] # (Auto) 0.5 10^3/uL (0.2-0.9) 03/14/25 08:48 Eos # (Auto) 0.3 10^3/uL (0.0-0.8) 03/14/25 08:48 Baso # (Auto) 0.0 10^3/uL (0.0-0.1) 03/14/25 08:48 Nucleated RBC % (auto) 0 % 03/14/25 08:48 Nucleated RBCs # 0.0 /100WBC 03/14/25 08:48 Sodium 135 mmol/L (136-145) L 03/14/25 08:48 Potassium 4.0 mmol/L (3.5-5.1) 03/14/25 08:48 Chloride 100 mmol/L (98-107) 03/14/25 08:48 Carbon Dioxide 23 mmol/L (22-29) 03/14/25 08:48 Anion Gap 16.0 (5-19) 03/14/25 08:48 BUN 6 mg/dL (6-20) 03/14/25 08:48 Creatinine 0.5 mg/dL (0.5-0.9) 03/14/25 08:48 GFR Calculation 138.1 mL/min (90-130) H 03/14/25 08:48 Glucose 220 mg/dL (65-115) H 03/14/25 08:48 Calculated Osmolality 284 mOsm/kg (285-295) L 03/14/25 08:48 Calcium 9.3 mg/dL (8.5-10.5) 03/14/25 08:48 Total Bilirubin 0.4 mg/dL (0.15-1.2) 03/14/25 08:48 AST 22 U/L (0-32) 03/14/25 08:48 ALT 19 U/L (0-33) 03/14/25 08:48 Alkaline Phosphatase 97 U/L (35-105) 03/14/25 08:48 Total Protein 7.8 g/dL (6.6-8.7) 03/14/25 08:48 Albumin 4.3 g/dL (3.5-5.2) 03/14/25 08:48 Globulin 3.5 g/dL (1.3-4.6) 03/14/25 08:48 Lipase 38 U/L (13-60) 03/14/25 08:48 No radiology studies performed this visit Discharge Plan Discharge Patient Disposition: Home Clinical Impression: GERD with esophagitis Qualifiers: Esophagitis bleeding: without hemorrhage Qualified Code(s): K21.00 - Gastro- esophageal reflux disease with esophagitis, without bleeding Condition: Stable Prescriptions: New sucralfate [Carafate] 100 mg/mL suspension 1 g PO TID 28 Days Qty: 840 0RF No Action montelukast [Singulair] 10 mg tablet 10 mg PO QPM PRN (Reason: allergies) lisinopril 2.5 mg tablet 2.5 mg PO QPM hydrocodone-acetaminophen 5-325 mg tablet 1 tab PO Q6H PRN (Reason: pain) 5 Days Qty: 20 0RF venlafaxine 75 mg tablet extended release 24hr 75 mg PO BEDTIME omeprazole 40 mg capsule,delayed release(DR/EC) 40 mg PO DAILY PRN (Reason: Indigestion) ondansetron 4 mg tablet,disintegrating 4 mg PO Q8H PRN (Reason: Nausea And Vomiting) atorvastatin [Lipitor] 40 mg tablet 40 mg PO QPM Trulicity 4.5 mg/0.5 mL pen injector 4.5 mg SUBCUT Q7D Rx Instructions: Discharge Orders: Discharge ED (Routine); Ordered 03/14/25 Ordered By: Devan Busch Patient Instructions: Abdominal Pain (ED), Patient Portal & Yovanny Instructions, GERD (Gastroesophageal Reflux Disease) (DC) Print Language: Ukrainian Coding Level of Care Code ED 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
[2025-03-14 10:36] VITALS: BP 122/88; PULSE 89; O2SAT 98
--- NOTE | 2025-03-14 10:42 | DCPLANNER ---
messaged gen surg for er f/u
[2025-03-14 10:48] VITALS: BP 124/88; PULSE 97; O2SAT 99
== END 2025-03-14 10:49 | disposition home or self-care (01) ==
PROVIDERS: Emergency Provider Student in an Organized Health Care Education/Training Program
DX: K21.00 Gastro-esophageal reflux disease with esophagitis, without bleeding (principal); Z79.85 Long-term (current) use of injectable non-insulin antidiabetic drugs
CPT/HCPCS: 36415; 80053; 83690; 85025; 96374; 96375; 99284; J2405; J3490; J9999

== ENCOUNTER 2025-03-26 07:52 | Outpatient (CLI) | payer OTHER, SELFPAY ==
--- NOTE | 2025-03-26 08:00 | NM_ITS ---
WS: [id number] NUCLEAR MEDICINE HIDA SCAN WITH GALLBLADDER EJECTION FRACTION HISTORY: biliary colic COMPARISON: Gallbladder ultrasound 02/25/2025 TECHNIQUE: The patient was intravenously injected with 7.6 mCi of TC99m Mebrofenin. Immediate imaging over the right upper quadrant was followed by 5 minute image and additional images for a total of 60 minutes. Normal uptake of radiotracer throughout the liver. Activity identified in the gallbladder at 30 minutes and well distended by 60 minutes. Activity in the proximal small bowel was seen by 15 minutes. Good washout of the radiotracer from the liver by 60 minutes. The patient then drank 8 ounces of Ensure Plus. Ejection fraction at 60 minutes was 87%. Normal GB ejection fraction is 35-75%. Post fatty meal symptoms: None. NM/NM hepatobiliary w phar* [id number] IMPRESSION: 1. Normal HIDA scan. 2. Normal gallbladder ejection fraction.
== END 2025-03-26 07:53 | disposition home or self-care (01) ==
LOC: RAD 07:55
PROVIDERS: PCP Nurse Practitioner Family; Visit Provider Surgery
DX: K80.50 Calculus of bile duct without cholangitis or cholecystitis without obstruction (principal)
CPT/HCPCS: 78227; A9537

== ENCOUNTER 2025-04-08 05:00 | Outpatient (RCR) | payer OTHER, SELFPAY | END 2025-05-08 23:59 | disposition home or self-care (01) | LOC: SPT 05:00 | PROVIDERS: PCP Nurse Practitioner Family; Visit Provider Physician Assistant | DX: M19.019 Primary osteoarthritis, unspecified shoulder (principal) | CPT/HCPCS: 97110 ==

== ENCOUNTER 2025-04-18 08:07 | Day surgery (SDC) | payer OTHER, SELFPAY ==
[2025-04-18 08:19] VITALS: BP 132/92; PULSE 92; RESP 16; TEMP 36.3; O2SAT 97; BMI 34.7
--- NOTE | 2025-04-18 08:34 | W.PM.OPSUD ---
Surgery/Procedure H&P Update DATE OF PROCEDURE: April 18, 2025 DATE H&P PERFORMED: 03/20/25 H&P UPDATE INFORMATION: I have reviewed H&P completed within last 30 days, I have examined patient prior to procedure, No changes to prior documentation, H&P is in [facility] EMR on date indicated and Risks and benefits of the procedure reviewed PLANNED PROCEDURE: Operation Date: 04/18/25 09:30 Proposed Procedures p EGD EGD with Biopsy 29852 K21.00(Not Applicable) - Jesus Alberto Nick MD
[2025-04-18] MEDS: insulin regular-human 100 units/1 mL 5 UNIT IVP (08:53)
[2025-04-18 09:29] VITALS: BP 132/84; PULSE 100; RESP 14; TEMP 36.4; O2SAT 96
[2025-04-18 09:40] VITALS: BP 151/92; PULSE 99; RESP 18; O2SAT 99
--- NOTE | 2025-04-18 09:49 | ANES.PREANE2 ---
Pre-Anesthetic Assessment Height/Weight: Height 5 ft 2 in Weight 190 lb Temp Pulse Resp BP Pulse Ox O2 Del Method 97.6 F 99 18 151/92 99 Room Air 04/18/25 09:29 04/18/25 09:40 04/18/25 09:40 04/18/25 09:40 04/18/25 09:40 04/18/25 09:40 Preop Diagnosis: Change in bowel habits Operation Date: 04/18/25 09:30 Proposed Procedures p EGD EGD with Biopsy 73109 K21.00(Not Applicable) - Jesus Alberto Nick MD Was Beta Keven taken within 24 hours: N/A Was Clonidine taken within 24 hours: N/A Last intake: Intake Last Liquid Date 04/17/25 Last Liquid Time 22:00 Last Solid Date 04/17/25 Last Solid Time 22:30 Social No alcohol and No tobacco Exam alert, oriented x 3, clear to auscultation bilaterally and regular rate & rhythm Airway Submandibular: within normal limits Cervical ROM: within normal limits Mallampati: Class II Dentition: full Anesthetic Plan ASA status: 3 Anesthesia: MAC Other: No prior issues with anesthesia N.p.o. since yesterday History of hypertension on lisinopril. Preop be BP 151/92 GERD on omeprazole Type 2 diabetes on Trulicity. Last taken 04/10/2025. Preop BS 278. 5 units insulin given Labs 03/14/2025 reviewed and acceptable for procedure Plan for MAC anesthesia Medications/Allergies Home Medications ?Medication ?Instructions ?Recorded ?Confirmed ?Last Taken ?Type lisinopril 2.5 mg tablet 2.5 mg PO QPM 11/23/23 04/18/25 04/15/25 History montelukast 10 mg tablet 10 mg PO QPM PRN allergies 11/23/23 04/18/25 04/15/25 History (Singulair) venlafaxine 75 mg tablet,extended 75 mg PO BEDTIME 02/07/25 04/18/25 04/15/25 History release 24 hr atorvastatin 40 mg tablet (Lipitor) 40 mg PO QPM 03/14/25 04/18/25 04/15/25 History dulaglutide 4.5 mg/0.5 mL 4.5 mg SUBCUT Q7D 03/14/25 04/18/25 04/10/25 [facility] omep[facility] 40 mg capsule,delayed 40 mg PO DAILY PRN Indigestion 03/14/25 04/18/25 04/15/25 History release ondansetron 4 mg disintegrating 4 mg PO Q8H PRN Nausea And Vomiting 03/14/25 04/18/25 Unknown History tablet Allergies Allergy/AdvReac Type Severity Reaction Status Date / Time No Known Allergies Allergy Verified 04/18/25 08:18 Current Medications Generic Name Dose Route Start Last Admin Trade Name Freq PRN Reason Stop Dose Admin Sodium Chloride 1,000 mls @ 15 mls/hr 04/18/25 08:11 04/18/25 09:43 Sodium Chloride 0.9% IV 04/19/25 08:10 Infused .Q24H PRN Infusion COLONOSCOPY FLUIDS PFSH Anesthesia Medical History (Updated 03/22/25 @ 00:00 by MARY Hernandez) Cysts of both ovaries Surgical History H/O: hysterectomy 07/09/2020- laparoscopic assisted vaginal hysterectomy, lysis of adhesions, cystoscopy performed by Dr. Mosley at [facility] Family History Grandfather Hyperlipidemia maternal Hypertension maternal Stroke maternal Grandmother Heart disease maternal Hyperlipidemia maternal Hypertension maternal Thyroid disease maternal Stroke Diabetes Father Thyroid disease Diabetes Mother Hypertension Hyperlipidemia Brother Diabetes Denies family history of Anesthesia complication Bleeding disorder Social History Smoking and tobacco/nicotine status: never used tobacco/nicotine Alcohol intake: current Alcohol intake frequency: holidays/special occasions only Alcohol type: wine Substance/Drug Use: never
[2025-04-18 09:50] VITALS: BP 121/85; PULSE 87; RESP 18; O2SAT 99
--- NOTE | 2025-04-18 10:05 | ANE.PACU2 ---
Inpatient post-anesthesia follow up: Airway intact: Yes Vital signs: Temperature 97.6 F Pulse Rate 87 Respiratory Rate 18 Blood Pressure 121/85 Pulse Oximetry 99 Oxygen Delivery Me thod Room Air Oxygen Flow Rate Fraction of Inspir ed Oxygen Hydration adequate: Yes Nausea and vomiting: No Pain level: 1 Mental status: Baseline
== END 2025-04-18 10:05 | disposition home or self-care (01) ==
PROVIDERS: PCP Nurse Practitioner Family; Visit Provider Surgery
PROC: 0DJ08ZZ Inspection of Upper Intestinal Tract, Via Natural or Artificial Opening Endoscopic (ICD-10-PCS; principal; 2025-04-18 09:30)
DX: R10.9 Unspecified abdominal pain (principal); K29.50 Unspecified chronic gastritis without bleeding; I10 Essential (primary) hypertension; K21.9 Gastro-esophageal reflux disease without esophagitis; E11.9 Type 2 diabetes mellitus without complications
CPT/HCPCS: 36416; 43239; 82962; 88305; J1815; J2704; J7030